=== PATIENT | male | born 1965 | race American Indian/Alaskan Native ===

== ENCOUNTER 2018-02-15 06:01 | Day surgery (SDC) | payer MEDICARE ==
[2018-02-09 09:00] VITALS: BMI 32.7
[2018-02-15] MEDS ORDERED: Gentamicin 80 mg/2mL Inj. ONE (07:30)
[2018-02-15] MEDS ORDERED: Lidocaine 2% Inj (20ml) ONE (07:30)
[2018-02-15] MEDS ORDERED: Midazolam 2 MG/2 ML VIAL ONE ×2 (07:33→08:22)
[2018-02-15] MEDS ORDERED: Propofol 10 mg/ml Inj (20 ML) ONE (07:33)
[2018-02-15] MEDS ORDERED: Bacitracin Ointment 30 GM TUBE ONE (08:30)
[2018-02-15] MEDS ORDERED: Morphine 2 mg/ml ISec IVP PRN (08:58)
[2018-02-15] MEDS ORDERED: Lactated Ringer's 1,000 ML IV SCH (09:00)
--- NOTE | 2018-02-15 09:13 | PCM.SURG1 ---
Surgeon's Initial Post Op Note - Surgeon's Notes Surgeon: Dr. Claudette East Dyno Technician: Dr. Marita Aguirre PGY-1 Type of Anesthesia: IV Sedation, Local Anesthesia Administered By: Dr. Anthony Pre-Operative Diagnosis: right foot chronic non-healing ulceration Operative Findings: see operative report. I: 15cc 2% Lidocaine plain. M: Misonix debridement probe (setting 7), Alloderm tissue matrix 6x12cm, Edmond vac dressing [id number] Post-Operative Diagnosis: right foot chronic non-healing ulceration Operation Performed: right foot wound debridement with Misonix, application of Alloderm graft, application of wound vac dressing Specimen/Specimens Removed: right foot heel soft tissue, heel bone Estimated Blood Loss: EBL {In ML}: 10 Blood Products Given: N/A Drains Used: Wound Vac Post-Op Condition: Good Date of Surgery/Procedure: 02/15/18 Time of Surgery/Procedure: 08:00
[2018-02-15 10:32] VITALS: TEMP 97.8; O2SAT 97
[2018-02-15 11:37] VITALS: BP 182/100; PULSE 74; RESP 20
--- NOTE | 2018-02-15 19:07 | OP ---
PROCEDURE DATE: 02/15/2018 PREOPERATIVE DIAGNOSIS: Right foot nonhealing chronic ulcer. POSTOPERATIVE DIAGNOSIS: Right foot nonhealing chronic ulcer. PROCEDURE: Right foot wound debridement with Misonix, application of AlloDerm graft, application of wound vacuum-assisted closure dressing. SURGEON: Claudette East DPM [facility] LEVERMAN: Marita Aguirre, PGY-1 TYPE OF ANESTHESIA: IV sedation plus local. ANESTHESIOLOGIST: Zeyad Anthony M.D. INDICATION: The patient is a 53-year-old male with the above diagnoses. The patient has exhausted all conservative treatment at this time and now requires surgical intervention. The patient signed the consent after careful explanation of risks, benefits, complications, and alternatives for surgical procedure. No guarantees were given nor implied. N.p.o. status was confirmed prior to taking the patient to the OR. PREPARATION: The patient was brought into the operating room and placed on the operating room table in a supine position. Time-out was performed for identification of the correct patient and procedure. After induction of IV sedation, 15 mL of 2% lidocaine plain was administered in an ankle block fashion to the right lower extremity. The right lower extremity was then prepped and draped in normal sterile manner and the procedure began. No tourniquet was used during the procedure. DESCRIPTION OF PROCEDURE: Attention was then directed to the plantar aspect of the right foot at the heel, where a non-healing wound measuring approximately 15 cm x 12 cm x 0.6 cm was present. Additional open ulcerations were noted to the plantar mid foot, the first being at the plantar lateral mid foot measuring approximately 4 cm x 3.5 cm x 0.4 cm. An additional ulceration was located at the plantar medial mid foot measuring approximately 3 cm x 3 cm x 0.3 cm. There was also an open non- healing transmetatarsal amputation site noted. A sterile #15 blade and forceps were utilized to debride all superficial necrotic and fibrotic tissue from the wound bed and wound borders of all right foot ulcers. At this time, the Misonix debridement probe was primed and set to setting 7 and utilized to excisionally debride all fibrotic and necrotic tissue from the right foot wounds at the heel and the two wounds at the plantar lateral and plantar medial mid foot respectively. At this time, a wound culture was taken from the right heel wound. Next, a bone Trephine was utilized to take a bone biopsy from the plantar posterior heel where exposed calcaneal bone was noted. This bone specimen was sent for pathology and a bone culture was taken. All wound sites were then copiously flushed with gentamicin infused saline solution. Next, an AlloDerm tissue Matrix 6 cm x 12 cm graft was prepped with saline and fenestrated. It was then applied to the posterior plantar right heel wound and reapproximated to the skin edges with skin fannie. At this time a MATA 15 cm x 15 cm wound VAC dressing was applied to the right heel wound. The MATA vac was secured with tegaderm and turned on to begin vac therapy. All other wounds received bacitracin ointment. The right foot was then dressed with Allevyn pads, abdominal pads, a Kerlix dressing, and light OLY bandage. POSTOPERATIVE CONDITION: The patient tolerated the anesthesia and procedure well and was escorted to the recovery room with vital signs stable and neurovascular status intact to the right lower extremity. The patient will follow up with Dr. [facility] in two days, on 02/17/2018 for a dressing change and reevaluation of surgical wound as well as a VAC change. Marita Aguirre DPM Claudette East DPM [facility]
== END 2018-02-15 12:00 | disposition home or self-care (01) ==
LOC: SDS 06:01
PROVIDERS: ATTEND Podiatrist
DX: E11.621 Type 2 diabetes mellitus with foot ulcer (principal); L97.519 Non-pressure chronic ulcer of other part of right foot with unspecified severity; Z79.4 Long term (current) use of insulin
CPT/HCPCS: 15004; 15275; 20240; 82948; 87070 ×2; 88304; 88307; 88311; J0360; J1580; J2250; J2270; J2405; J2704; J3010; J7120

== ENCOUNTER 2018-02-26 08:24 | Day surgery (SDC) | payer MEDICARE ==
[2018-02-26 08:55] VITALS: BMI 32.1
[2018-02-26 09:09] LABS: BASO # 0.01 K/mm3 (0.0-2.0); BASO % 0.1 % (0.0-3.0); EOS # 0.2 (0.0-0.7); EOS % 1.6 % (1.5-5.0); GRAN # 8.04 (1.4-6.5); GRAN % 69.4 % (50.0-68.0); HEMOGLOBIN 7.9 g/dL (14.0-18.0); LYMPH # 2.6 (1.2-3.4); LYMPH % 22.3 % (22.0-35.0); MEAN CELL VOLUME 69.5 fl (80.0-105.0); MEAN CORPUSCULAR HEMOGLOBIN 21.7 pg (25.0-35.0); MEAN CORPUSCULAR HGB CONC 31.2 g/dl (31.0-37.0); MEAN PLATELET VOLUME 9.2 fl (7.0-11.0); MONO # 0.8 (0.1-0.6); MONO % 6.6 % (1.0-6.0); RBC 3.64 10^6/uL (3.5-6.1); RED CELL DISTRIBUTION WIDTH 19.2 % (11.5-14.5); WHITE BLOOD COUNT 11.6 10^3/ul (4.5-11.0)
[2018-02-26 09:13] VITALS: O2SAT 95
[2018-02-26 09:16] LABS: BLOOD UREA NITROGEN 24 mg/dL (7-21); CALCIUM 9.7 mg/dL (8.4-10.5); GFR AFRICAN-AMERICAN > 60; GFR NON-AFRICAN AMERICAN 58
[2018-02-26 09:24] LABS: INR 1.28 (0.93-1.08); PARTIAL THROMBOPLASTIN TIME 33.2 Seconds (25.1-36.5); PROTHROMBIN TIME 14.8 SECONDS (9.4-12.5)
[2018-02-26] MEDS ORDERED: Lidocaine 2% Inj (20ml) ONE (10:15)
[2018-02-26 11:23] VITALS: PULSE 74; RESP 20; TEMP 98.5
[2018-02-26 11:46] VITALS: BP 160/78
--- NOTE | 2018-02-26 13:14 | VASCULAR ---
PROCEDURE: Ultrasound and fluoroscopically placed left upper extremity PICC line. HISTORY: Right foot osteomyelitis. Diabetes. Long-term IV antibiotics. Needs PICC line PHYSICIAN(S): Anderson Rush MD. TECHNIQUE: The relative risks and indications of the procedure were explained to the patient and consent obtained. The patient was placed supine on the arteriogram table and the left arm prepped and draped in the usual sterile fashion. A tourniquet was applied to the left axilla. 1% Xylocaine was used to anesthetize the skin and soft tissues at the puncture site above the elbow. The left basilic vein was punctured under direct ultrasound guidance with a micropuncture set. A 0.018 guidewire was advanced centrally and used to measure the length to the SVC/RA junction. A 5 Macedonian single-lumen PICC line 53 cm long was advanced to the SVC/RA junction. The catheter was flushed and secured. The patient tolerated the procedure well. IMPRESSION: 1. Ultrasound and fluoroscopically placed left upper extremity PICC line. A 5 Macedonian single-lumen PICC line 53 cm long was advanced to the SVC/RA junction.
== END 2018-02-26 11:43 | disposition home or self-care (01) ==
LOC: OPSURG 08:24
PROVIDERS: ATTEND Radiology Vascular & Interventional Radiology
DX: E11.69 Type 2 diabetes mellitus with other specified complication (principal); M86.8X7 Other osteomyelitis, ankle and foot; Z79.4 Long term (current) use of insulin
CPT/HCPCS: 36415; 36569; 76937; 77001; 80048; 85025; 85610; 85730; C1751; J1644

== ENCOUNTER 2018-03-08 10:38 | Observation (INO) | payer MEDICARE ==
[2018-03-08 10:39] VITALS: BMI 39.2
--- NOTE | 2018-03-08 11:22 | ED PDOC ---
Arrival/HPI - General Chief Complaint: GI Problem Time Seen by Provider: 03/08/18 11:03 Historian: Patient - History of Present Illness Narrative History of Present Illness (Text): 03/08/18 11:17 A 53 year old male, with a past medical history of diabetes and osteomyelitis of the right foot, sent into the emergency department by Dr. East for loose watery diarrhea for the past 4-[address] East reports patient is positive for c.diff. She requests to hold antibiotics until patient is examined by ID Dr. Moore. Patient reports he was recently taken off antibiotics 3 days ago. Patient denies any fever, chills, nausea, vomiting, abdominal pain, chest pain, shortness of breath or any other complaints. PMD: Dr. Rosado Bronc Breaker: Dr. East Time/Duration: Other (4-5 days) Symptom Course: Unchanged Context: Home Past Medical History - Provider Review Nursing Documentation Reviewed: Yes - Infectious Disease Hx of Infectious Diseases: None - Cardiac Hx Cardiac Disorders: Yes Hx Hypertension: Yes - Pulmonary Hx Respiratory Disorders: No - Neurological Hx Neurological Disorder: Yes Other/Comment: NEUROPATHY - HEENT Hx HEENT Disorder: No - Renal Hx Renal Disorder: No - Endocrine/Metabolic Hx Endocrine Disorders: Yes Hx Diabetes Mellitus Type 1: Yes Hx Diabetes Mellitus Type 2: Yes - Hematological/Oncological Hx Blood Disorders: No - Integumentary Hx Dermatological Disorder: Yes Hx Cellulitis: Yes - Musculoskeletal/Rheumatological Hx Musculoskeletal Disorders: Yes - Gastrointestinal Hx Gastrointestinal Disorders: Yes Hx Diarrhea: Yes - Genitourinary/Gynecological Hx Genitourinary Disorders: No - Psychiatric Hx Psychophysiologic Disorder: No Hx Emotional Abuse: No Hx Physical Abuse: No Hx Substance Use: No - Surgical History Hx Amputation: Yes - Anesthesia Hx Anesthesia: Yes Hx Anesthesia Reactions: No Hx Malignant Hyperthermia: No - Suicidal Assessment Feels Threatened In Home Enviroment: No Family/Social History - Physician Review Nursing Documentation Reviewed: Yes Family/Social History: No Known Family HX Smoking Status: Former Smoker Hx Alcohol Use: No Hx Substance Use: No Allergies/Home Meds Allergies/Adverse Reactions: Allergies No Known Allergies Allergy (Verified 03/08/18 10:41) Home Medications: Home Meds Medication Instructions Recorded Confirmed Atorvastatin [Lipitor] 20 mg PO DAILY 02/09/18 03/08/18 Gabapentin [Neurontin] 300 mg PO TID 02/09/18 03/08/18 Hydrocodone/Acetaminophen 1 tab PO Q6H PRN 02/09/18 03/08/18 [Hydrocodone-Acetamin 10-325 mg] Metoprolol Tartrate [Lopressor] 25 mg PO BID 02/09/18 03/08/18 Insulin Aspart Prot/Insuln Asp 60 unit SQ ACTID 02/26/18 03/08/18 [Novolog Mix 70-30 Vial] Insulin Glargine,Hum.rec.anlog 50 units SC ACBD 02/26/18 03/08/18 [Basaglar Kwikpen U-100] Review of Systems - Physician Review All systems were reviewed & negative as marked: Yes - Review of Systems Constitutional: absent: Fevers, Night Sweats Respiratory: absent: SOB Cardiovascular: absent: Chest Pain Gastrointestinal: Diarrhea. absent: Abdominal Pain, Nausea, Vomiting Physical Exam Vital Signs Reviewed: Yes Vital Signs Temp Pulse Resp BP Pulse Ox 03/08/18 11:36 75 18 158/86 H 95 03/08/18 10:43 97.7 F 76 16 160/91 H 94 L Temperature: Afebrile Blood Pressure: Hypertensive Pulse: Regular Respiratory Rate: Normal Appearance: Positive for: Well-Appearing, Non-Toxic, Comfortable Pain Distress: None Mental Status: Positive for: Alert and Oriented X 3 - Systems Exam Head: Present: Atraumatic, Normocephalic Pupils: Present: PERRL Extroacular Muscles: Present: EOMI Conjunctiva: Present: Normal Mouth: Present: Moist Mucous Membranes Neck: Present: Normal Range of Motion Respiratory/Chest: Present: Clear to Auscultation, Good Air Exchange. No: Respiratory Distress, Accessory Muscle Use Cardiovascular: Present: Regular Rate and Rhythm, Normal S1, S2. No: Murmurs Abdomen: No: Tenderness, Distention, Peritoneal Signs Back: Present: Normal Inspection Upper Extremity: Present: Normal Inspection. No: Cyanosis, Edema Lower Extremity: Present: NORMAL PULSES, Other (Dressing to right foot noted. Examination differed due to recent dressing changed today by dual rate supervisor.). No: Edema, CALF TENDERNESS Neurological: Present: GCS=15, CN II-XII Intact, Speech Normal Skin: Present: Warm, Dry, Normal Color. No: Rashes Psychiatric: Present: Alert, Oriented x 3, Normal Insight, Normal Concentration Medical Decision Making ED Course and Treatment: 03/08/18 11:16 Impression: A 53 year old male with loose watery diarrhea for 4-5 days. Patient is positive for c.diff. Plan: -- Labs -- Blood and stool culture -- Urinalysis -- Reassess and disposition Progress Notes: 03/08/18 11:[address] East, who states c.diff confirmed on todays blood work results. Reports patient has been on and off antibiotics for the past few months due to history of osteomyelitis. She is concerned for worsening dehydration and hyperglycemia, and patient needs evaluation by ID for antibiotic mgmt due to osteomyelitis and new c.diff. Accepted by hospitalist. - Lab Interpretations Lab Results: 03/08/18 11:50 03/08/18 11:50 Lab Results 03/08/18 11:50: Sodium 143, Potassium 4.0, Chloride 106, Carbon Dioxide 26, Anion Gap 15, BUN 21, Creatinine 1.3, Est GFR ( Amer) > 60, Est GFR (Non- Af Amer) 58, Random Glucose 193 H, Calcium 9.7, Total Bilirubin 0.2, AST 49, ALT 50, Alkaline Phosphatase 77, Total Protein 7.6, Albumin 3.4, Globulin 4.2, Albumin/Globulin Ratio 0.8 L, Lipase 143 03/08/18 11:50: WBC 11.1 H, RBC 3.76, Hgb 8.2 L, Hct 26.7 L, MCV 71.0 L, MCH 21.8 L, MCHC 30.7 L, RDW 19.5 H, Plt Count 410, MPV 9.0, Gran % 68.4 H, Lymph % (Auto) 25.7, Cecil % (Auto) 4.3, Eos % (Auto) 1.4 L, Baso % (Auto) 0.2, Gran # 7.57 H, Lymph # (Auto) 2.8, Cecil # (Auto) 0.5, Eos # (Auto) 0.2, Baso # (Auto) 0.02 I have reviewed the lab results: Yes - Medication Orders Current Medication Orders: Sodium Chloride (Sodium Chloride 0.9%) 1,000 mls @ 80 mls/hr IV .[id number] JORGE ALBERTO - Scribe Statement The provider has reviewed the documentation as recorded by the Scribe Twila Yu Provider Kalyn Attestation: All medical record entries made by the Danetteibamanda were at my direction and personally dictated by me. I have reviewed the chart and agree that the record accurately reflects my personal performance of the history, physical exam, medical decision making, and the department course for this patient. I have also personally directed, reviewed, and agree with the discharge instructions and disposition. Disposition/Present on Arrival - Present on Arrival Any Indicators Present on Arrival: No History of DVT/PE: No History of Uncontrolled Diabetes: No Urinary Catheter: No History of Decub. Ulcer: No History Surgical Site Infection Following: None - Disposition Have Diagnosis and Disposition been Completed?: Yes Diagnosis: C. difficile diarrhea, Osteomyelitis, Diabetic foot ulcer Disposition: HOSPITALIZED Disposition Time: 12:24 Patient Plan: Observation Condition: FAIR Referrals: Lillian Rosado MD [Primary Care Provider] - Follow up with primary Forms: [employer] ([place])
[2018-03-08 11:37] VITALS: RESP 18
[2018-03-08 12:05] LABS: BASO # 0.02 K/mm3 (0.0-2.0); BASO % 0.2 % (0.0-3.0); EOS # 0.2 (0.0-0.7); EOS % 1.4 % (1.5-5.0); GRAN # 7.57 (1.4-6.5); GRAN % 68.4 % (50.0-68.0); HEMOGLOBIN 8.2 g/dL (14.0-18.0); LYMPH # 2.8 (1.2-3.4); LYMPH % 25.7 % (22.0-35.0); MEAN CORPUSCULAR HEMOGLOBIN 21.8 pg (25.0-35.0); MEAN CORPUSCULAR HGB CONC 30.7 g/dl (31.0-37.0); MONO # 0.5 (0.1-0.6); MONO % 4.3 % (1.0-6.0); RBC 3.76 10^6/uL (3.5-6.1); RED CELL DISTRIBUTION WIDTH 19.5 % (11.5-14.5); WHITE BLOOD COUNT 11.1 10^3/ul (4.5-11.0)
[2018-03-08 12:15] LABS: ALB/GLOB RATIO 0.8 (1.1-1.8); ALBUMIN 3.4 g/dL (3.0-4.8); ALT/SGPT 50 U/L (7-56); AST/SGOT 49 U/L (17-59); BLOOD UREA NITROGEN 21 mg/dL (7-21); CALCIUM 9.7 mg/dL (8.4-10.5); GFR AFRICAN-AMERICAN > 60; GFR NON-AFRICAN AMERICAN 58; LIPASE 143 U/L (23-300)
--- NOTE | 2018-03-08 12:38 | CP.PCM.HP ---
Addendum entered and electronically signed by Ludivina Baca DO 03/08/18 16:58: Patient was on IV Avycaz outpatient for antibiotic therapy prior to admission. Anemia workup: Will f/u Iron, TIBC, Retic count, Vit B12/Folate, Ferritin, Will hold stool occult testing at this time until infection resolves Original Note: <Ludivina Baca - Last Filed: 03/08/18 16:52> History of Present Illness - History of Present Illness History of Present Illness: HPI: Patient is a 53 year old male with past medical history of Diabetes Mellitus, HTN, Peripheral vascular disease and Osteomyelitis of Right Foot on IV antibiotics. Patient states that he started having loose bowel movements since last week. Consistency varies between soft and watery stools. He is on IV antibiotics for Osteomyelitis, he is unsure which antibiotics he is taking. He was tested for C diff which came back positive. Dr East requested that patient come to the hospital to be treated. He was recently taken off antibiotics 3 days ago. He denies any fever, chills, headaches, dizziness, cp, palpitations, N/V, sob, recent travel, sick contacts. States that this has never happened to him before. PMD: Dr Rosado Allergies: NKDA Medications: Metoprolol 25mg PO BID, Levemir 25 units HS, Novolog 60 units TID, Percocet 10/325mg PO q6H prn, ASA/Plavix, Lipitor 20mg PO HS Medical History: Diabetes Mellitus, HTN, Hx of Osteomyelitis of R foot, Perpipheral vascular disease Surgical History: Right foot transmetatarsal amputation, Left 1st and 2nd toe amputation Social History: Denies alcohol, tobacco, drug use Present on Admission - Present on Admission Any Indicators Present on Admission: No Past Patient History - Infectious Disease Hx of Infectious Diseases: None - Past Medical History & Family History Past Medical History?: Yes - Past Social History Smoking Status: Former Smoker - CARDIAC Hx Cardiac Disorders: Yes Hx Hypertension: Yes - PULMONARY Hx Respiratory Disorders: No - NEUROLOGICAL Hx Neurological Disorder: Yes Other/Comment: NEUROPATHY - HEENT Hx HEENT Problems: No - RENAL Hx Chronic Kidney Disease: No - ENDOCRINE/METABOLIC Hx Endocrine Disorders: Yes Hx Diabetes Mellitus Type 1: Yes Hx Diabetes Mellitus Type 2: Yes - HEMATOLOGICAL/ONCOLOGICAL Hx Blood Disorders: No - INTEGUMENTARY Hx Dermatological Problems: Yes Hx Cellulitis: Yes - MUSCULOSKELETAL/RHEUMATOLOGICAL Hx Musculoskeletal Disorders: Yes - GASTROINTESTINAL Hx Gastrointestinal Disorders: Yes Hx Diarrhea: Yes - GENITOURINARY/GYNECOLOGICAL Hx Genitourinary Disorders: No - PSYCHIATRIC Hx Psychophysiologic Disorder: No Hx Emotional Abuse: No Hx Physical Abuse: No Hx Substance Use: No - SURGICAL HISTORY Hx Amputation: Yes - ANESTHESIA Hx Anesthesia: Yes Hx Anesthesia Reactions: No Hx Malignant Hyperthermia: No Meds Allergies/Adverse Reactions: Allergies Allergy/AdvReac Type Severity Reaction Status Date / Time No Known Allergies Allergy Verified 03/08/18 10:41 Physical Exam - Constitutional Appears: Well, No Acute Distress - Head Exam Head Exam: ATRAUMATIC, NORMAL INSPECTION, NORMOCEPHALIC - Eye Exam Eye Exam: EOMI, Normal appearance Pupil Exam: PERRL - ENT Exam ENT Exam: Mucous Membranes Moist - Respiratory Exam Respiratory Exam: Clear to Auscultation Bilateral, NORMAL BREATHING PATTERN. absent: Rales, Rhonchi, Wheezes - Cardiovascular Exam Cardiovascular Exam: REGULAR RHYTHM, +S1, +S2 - GI/Abdominal Exam GI & Abdominal Exam: Distended, Guarding, Normal Bowel Sounds, Soft. absent: Rebound, Rigid, Tenderness - Extremities Exam Additional comments: Left foot: 1st and 2nd toe amputation Right foot: Covered with dressing, transmetatarsal amputation Pedal pulses palpable bilaterally Left upper arm PICC line - Neurological Exam Neurological exam: Alert, Oriented x3 - Psychiatric Exam Psychiatric exam: Normal Affect, Normal Mood - Skin Skin Exam: Normal Color, Warm Results - Vital Signs Recent Vital Signs: Last Vital Signs Temp 97.7 F 03/08/18 10:43 Pulse 75 03/08/18 11:36 Resp 18 03/08/18 11:36 BP 158/86 H 03/08/18 11:36 Pulse Ox 95 03/08/18 11:36 - Labs Result Diagrams: 03/08/18 11:50 03/08/18 11:50 Assessment & Plan - Assessment and Plan (Free Text) Assessment: 1. Diarrhea likely 2/2 C Diff Colitis -Stable, afebrile -Leukocytosis 11.1 -F/U repeat c diff, fecal leukocytes, stool cultures, stool ova/parasites -F/U blood cultures, urine cultures -Antiobiotics: Vancomycin 125mg PO QID -ID on consult, help appreciated -Contact precautions 2. Insulin Dependent Diabetes Mellitus with Neuropathy -Low dose Insulin sliding scale -Levemir 25 units HS -Accuchecks ACHS -Continue Gabapentin 300mg PO TID -F/U lipid panel, hga1c 3. History of HTN -Continue Metoprolol 25mg PO BID 4. History of Osteomyelitis of Right Foot -Patient was on IV antibiotics outpatient, on hold at this time -Wound cultures grew pseudomonas aeurginosa -Podiatry on consult, help appreciated 5. Anemia -Likely Multifactorial -Hgb 8.2 on admission -No acute signs of bleeding at this time -F/U anemia workup -Serial CBCs 6. History of Peripheral Vascular Disease -Continue ASA/Plavix GI/DVT ppx: -Pepcid 20mg PO BID -Heparin 5000 units Q12H Plan discussed with Dr Shaw <Zak Shaw - Last Filed: 03/09/18 07:16> Results - Vital Signs Recent Vital Signs: Last Vital Signs Temp 98.9 F 03/08/18 16:43 Pulse 75 03/08/18 16:43 Resp 18 03/08/18 16:43 BP 165/93 H 03/08/18 18:40 Pulse Ox 96 03/08/18 16:01 - Labs Result Diagrams: 03/08/18 11:50 03/08/18 11:50 Labs: Laboratory Results - last 24 hr 03/08/18 03/08/18 03/08/18 12:30 15:54 16:59 POC Glucose (mg/dL) 203 H 174 H Urine Color Yellow Urine Appearance Clear Urine pH 6.0 Ur Specific Allred 1.025 Urine Protein 100 H Urine Glucose (UA) Negative Urine Ketones Negative Urine Blood Moderate H Urine Nitrate Negative Urine Bilirubin Negative Urine Urobilinogen 0.2 Ur Leukocyte Esterase Negative Urine RBC 15 - 20 Urine WBC 1 - 3 Ur Epithelial Cells 0 - 2 Amorphous Sediment Few Urine Bacteria Many Fine Granular Casts 0 - 2 Coarse Granular Casts Trace H Urine Other Fiber 03/08/18 03/09/18 21:05 06:43 POC Glucose (mg/dL) 242 H 176 H Urine Color Urine Appearance Urine pH Ur Specific Allred Urine Protein Urine Glucose (UA) Urine Ketones Urine Blood Urine Nitrate Urine Bilirubin Urine Urobilinogen Ur Leukocyte Esterase Urine RBC Urine WBC Ur Epithelial Cells Amorphous Sediment Urine Bacteria Fine Granular Casts Coarse Granular Casts Urine Other Attending/Attestation - Attestation I have personally seen and examined this patient.: Yes I have fully participated in the care of the patient.: Yes I have reviewed all pertinent clinical information: Yes Notes (Text): 03/08/18 53 year old male with past medical history of hypertension, diabetes, and osteomyelitis of right foot which was being treated by his lead mechanical engineer with iv antibiotics and hyperbaric therapy presents with complaint of diarrhea. Recent outpatient testing was positive for C Diff antigen. He is started on po vanco. ID and podiatry consults are also requested for osteomyelitis of right foot. Anemia workup is ordered for microcytic anemia, likely multifactorial, possibly anemia of chronic disease. Continue with home medications for hypertension and diabetes. Zak Shaw MD Hospitalist.
[2018-03-08 12:39] LABS: URINE APPEARANCE CLEAR (CLEAR); URINE BILIRUBIN NEGATIVE (NEGATIVE); URINE BLOOD MODERATE (NEGATIVE); URINE COLOR YELLOW (YELLOW); URINE GLUCOSE (UA) NEGATIVE (NEGATIVE); URINE LEUKOCYTE ESTERASE NEGATIVE Leu/uL (NEGATIVE); URINE PROTEIN 100 mg/dL (<30 mg/dL); URINE UROBILINOGEN 0.2 E.U./dL (<1 E.U./dL)
[2018-03-08 12:52] LABS: URINE BACTERIA MANY (NEG); URINE EPITHELIAL CELLS 0 - 2 /hpf (0-5); URINE RBC 15 - 20 /hpf (0-2)
[2018-03-08 12:53] LABS: URINE AMORPHOUS SEDIMENT FEW
[2018-03-08 12:54] LABS: URINE COARSE GRANULAR CAST TRACE /hpf (0-2); URINE FINE GRANULAR CAST 0 - 2 /hpf (0-2)
[2018-03-08] MEDS: Sodium Chloride 0.9% 1,000 ML IV SCH (13:55)
[2018-03-08] MEDS ORDERED: metroNIDAZOLE IV 500 mg/100 ml 500 MG/100 ML BAG IVPB SCH (14:00)
[2018-03-08] MEDS ORDERED: GABAPENTIN 300 MG PO SCH (14:00)
[2018-03-08] MEDS: Vancomycin 25 MG/ML PO SCH ×3 (14:23→22:22)
[2018-03-08] MEDS ORDERED: Insulin Detemir 100 units/ml Vial (Levemir) SC SCH ×2 (16:30→22:00)
[2018-03-08] MEDS: Insulin Lispro (humaLOG) LOW Coverage SC SCH (17:40)
[2018-03-08] MEDS: Oxycodone/Acetaminophen 10/325 mg Tab PO PRN ×2 (17:50→23:10)
[2018-03-09] MEDS: Oxycodone/Acetaminophen 10/325 mg Tab PO PRN ×2 (06:10→12:21)
[2018-03-09 07:19] LABS: ALB/GLOB RATIO 0.8 (1.1-1.8); ALBUMIN 3.1 g/dL (3.0-4.8); ALT/SGPT 40 U/L (7-56); AST/SGOT 37 U/L (17-59); BLOOD UREA NITROGEN 18 mg/dL (7-21); CALCIUM 9.4 mg/dL (8.4-10.5); GFR AFRICAN-AMERICAN > 60; GFR NON-AFRICAN AMERICAN > 60; HDL CHOLESTEROL 21 mg/dL (29-60); IRON 33 ug/dL (45-180)
[2018-03-09 07:27] LABS: LDL CHOLESTEROL 46 mg/dL (0-129)
[2018-03-09 07:32] LABS: % IRON SATURATION 14 % (20-55); TOTAL IRON BINDING CAPACITY 236 ug/dL (261-462)
[2018-03-09 07:42] LABS: BASO # 0.02 K/mm3 (0.0-2.0); BASO % 0.2 % (0.0-3.0); EOS # 0.2 (0.0-0.7); EOS % 1.6 % (1.5-5.0); GRAN # 6.15 (1.4-6.5); GRAN % 63.4 % (50.0-68.0); HEMOGLOBIN 7.9 g/dL (14.0-18.0); LYMPH # 2.8 (1.2-3.4); LYMPH % 28.5 % (22.0-35.0); MEAN CELL VOLUME 71.1 fl (80.0-105.0); MEAN CORPUSCULAR HEMOGLOBIN 21.8 pg (25.0-35.0); MEAN CORPUSCULAR HGB CONC 30.6 g/dl (31.0-37.0); MEAN PLATELET VOLUME 9.1 fl (7.0-11.0); MONO # 0.6 (0.1-0.6); MONO % 6.3 % (1.0-6.0); PLATELET COUNT 384 10^3/uL (120.0-450.0); RBC 3.63 10^6/uL (3.5-6.1); RED CELL DISTRIBUTION WIDTH 19.7 % (11.5-14.5); WHITE BLOOD COUNT 9.7 10^3/ul (4.5-11.0)
[2018-03-09] MEDS: Insulin Lispro (humaLOG) LOW Coverage SC SCH ×3 (08:27→15:49)
[2018-03-09] MEDS ORDERED: Magnesium Sulfate 2 GM in Sodium Chloride 0.9% 100 ML IVPB ONE (08:39)
[2018-03-09] MEDS: Vancomycin 25 MG/ML PO SCH ×3 (09:54→17:17)
[2018-03-09] MEDS: Sodium Chloride 0.9% 1,000 ML IV SCH (09:59)
[2018-03-09] MEDS ORDERED: Enoxaparin 40 mg Syringe SC SCH (10:00)
[2018-03-09 11:56] LABS: BASO # 0.02 K/mm3 (0.0-2.0); BASO % 0.2 % (0.0-3.0); EOS # 0.2 (0.0-0.7); EOS % 1.6 % (1.5-5.0); GRAN # 7.24 (1.4-6.5); GRAN % 66.2 % (50.0-68.0); LYMPH # 3.1 (1.2-3.4); LYMPH % 27.9 % (22.0-35.0); MEAN CELL VOLUME 71.2 fl (80.0-105.0); MEAN CORPUSCULAR HEMOGLOBIN 21.6 pg (25.0-35.0); MEAN CORPUSCULAR HGB CONC 30.4 g/dl (31.0-37.0); MEAN PLATELET VOLUME 8.9 fl (7.0-11.0); MONO # 0.5 (0.1-0.6); MONO % 4.1 % (1.0-6.0); RBC 4.16 10^6/uL (3.5-6.1); RED CELL DISTRIBUTION WIDTH 19.7 % (11.5-14.5); WHITE BLOOD COUNT 10.9 10^3/ul (4.5-11.0)
--- NOTE | 2018-03-09 12:52 | CP.PCM.CON ---
History of Present Illness - History of Present Illness History of Present Illness: 53 year old male with PMH of DM, HTN, morbid obesity, peripheral vascular disease, history of right foot TMA, history of left foot 1st and 2nd toe amputation was sent in from the wound care center because of loose bowel movement since 4-5 days ago. He has been on antibiotics for at least 2 and 1/[address] East's care, treating multidrug-resistant Pseudomonas on his right foot. He denies fever or chills, no nausea or vomiting, no headache or dizziness, no chest pain, no SOB, no sore throat, no abdominal pain, no diarrhea, no dysuria. Infectious Diseases consult is requested to further evaluate and manage. Review of Systems - Review of Systems All systems: reviewed and no additional remarkable complaints except (as per HPI ) Past Patient History - Infectious Disease Hx of Infectious Diseases: None - Past Medical History & Family History Past Medical History?: Yes - Past Social History Smoking Status: Former Smoker - CARDIAC Hx Cardiac Disorders: Yes Hx Hypertension: Yes - PULMONARY Hx Respiratory Disorders: No - NEUROLOGICAL Hx Neurological Disorder: Yes Other/Comment: NEUROPATHY - HEENT Hx HEENT Problems: No - RENAL Hx Chronic Kidney Disease: No - ENDOCRINE/METABOLIC Hx Endocrine Disorders: Yes Hx Diabetes Mellitus Type 1: Yes Hx Diabetes Mellitus Type 2: Yes - HEMATOLOGICAL/ONCOLOGICAL Hx Blood Disorders: No - INTEGUMENTARY Hx Dermatological Problems: Yes Hx Cellulitis: Yes - MUSCULOSKELETAL/RHEUMATOLOGICAL Hx Musculoskeletal Disorders: Yes - GASTROINTESTINAL Hx Gastrointestinal Disorders: Yes Hx Diarrhea: Yes - GENITOURINARY/GYNECOLOGICAL Hx Genitourinary Disorders: No - PSYCHIATRIC Hx Psychophysiologic Disorder: No Hx Emotional Abuse: No Hx Physical Abuse: No Hx Substance Use: No - SURGICAL HISTORY Hx Amputation: Yes - ANESTHESIA Hx Anesthesia: Yes Hx Anesthesia Reactions: No Hx Malignant Hyperthermia: No Meds Allergies/Adverse Reactions: Allergies Allergy/AdvReac Type Severity Reaction Status Date / Time No Known Allergies Allergy Verified 03/08/18 10:41 - Medications Medications: Current Medications Aspirin (Ecotrin) 81 mg PO DAILY [facility] Atorvastatin Calcium (Lipitor) 20 mg PO DAILY [facility] Famotidine (Pepcid) 20 mg PO 1000,2200 [facility] Last Admin: 03/08/18 22:21 Dose: 20 mg Gabapentin (Neurontin) 300 mg PO TID [facility] Last Admin: 03/08/18 17:40 Dose: 300 mg Sodium Chloride (Sodium Chloride 0.9%) 1,000 mls @ 80 mls/hr IV .[id number] [facility] Last Admin: 03/08/18 13:55 Dose: 80 mls/hr Insulin Detemir (Levemir) 25 unit SC HS [facility] Last Admin: 03/08/18 22:21 Dose: 25 unit Insulin Human Lispro (Humalog Low) 0 units SC ACHS [facility] PRN Reason: Protocol Last Admin: 03/08/18 17:40 Dose: 1 units Metoprolol Tartrate (Lopressor) 25 mg PO BID [facility] Last Admin: 03/08/18 17:40 Dose: 25 mg Oxycodone/Acetaminophen (Percocet 10/325 Mg Tab) 1 tab PO Q6H PRN PRN Reason: Pain, moderate (4-7) Last Admin: 03/08/18 17:50 Dose: 1 tab Vancomycin HCl (Vancocin 25 Mg/Ml (Oral Use)) 125 mg PO QID [facility] PRN Reason: Protocol Last Admin: 03/08/18 22:22 Dose: 125 mg Physical Exam - Constitutional Appears: Chronically Ill - Head Exam Head Exam: NORMAL INSPECTION - ENT Exam ENT Exam: Mucous Membranes Moist - Neck Exam Neck exam: Negative for: Lymphadenopathy, Meningismus - Respiratory Exam Respiratory Exam: Decreased Breath Sounds - Cardiovascular Exam Cardiovascular Exam: +S1, +S2 - GI/Abdominal Exam GI & Abdominal Exam: Soft. absent: Tenderness - Extremities Exam Additional comments: right foot with dressings in place Results - Vital Signs Recent Vital Signs: Last Vital Signs Temp 98.9 F 03/08/18 16:43 Pulse 75 03/08/18 16:43 Resp 18 03/08/18 16:43 BP 165/93 H 03/08/18 18:40 Pulse Ox 96 03/08/18 16:01 - Labs Result Diagrams: 03/09/18 11:35 03/09/18 06:20 Labs: Laboratory Results - last 24 hr 03/08/18 03/08/18 03/08/18 12:30 15:54 16:59 POC Glucose (mg/dL) 203 H 174 H Urine Color Yellow Urine Appearance Clear Urine pH 6.0 Ur Specific [place] 1.025 Urine Protein 100 H Urine Glucose (UA) Negative Urine Ketones Negative Urine Blood Moderate H Urine Nitrate Negative Urine Bilirubin Negative Urine Urobilinogen 0.2 Ur Leukocyte Esterase Negative Urine RBC 15 - 20 Urine WBC 1 - 3 Ur Epithelial Cells 0 - 2 Amorphous Sediment Few Urine Bacteria Many Fine Granular Casts 0 - 2 Coarse Granular Casts Trace H Urine Other Fiber 03/08/18 21:05 POC Glucose (mg/dL) 242 H Urine Color Urine Appearance Urine pH Ur Specific [place] Urine Protein Urine Glucose (UA) Urine Ketones Urine Blood Urine Nitrate Urine Bilirubin Urine Urobilinogen Ur Leukocyte Esterase Urine RBC Urine WBC Ur Epithelial Cells Amorphous Sediment Urine Bacteria Fine Granular Casts Coarse Granular Casts Urine Other Assessment & Plan - Assessment and Plan (Free Text) Plan: Assessment Diarrhea, R/O C. diff. associated right foot osteomyelitis with multidrug-resistant Pseudomonas DM HTN morbid obesity peripheral vascular disease history of right foot TMA history of left foot 1st and 2nd toe amputation Plan Continue Avycaz - will need 4-6 weeks of antibiotics with weekly ESR, CRP, CBC, CMP (on 2 1/2 weeks already of antibiotics) follow up stool for C. diff. - empirically started PO Vancomycin will monitor clinically
--- NOTE | 2018-03-09 15:10 | CP.PCM.DIS ---
<Ludivina Baca - Last Filed: 03/09/18 15:24> Provider - Provider Date of Admission: 03/08/18 12:17 Attending physician: Zak Shaw MD Primary care physician: Lillian Rosado MD Time Spent in preparation of Discharge (in minutes): 31 Hospital Course - Lab Results Lab Results: Micro Results 03/08/18 12:20 Blood Blood Culture - Preliminary NO GROWTH AFTER 24 HOURS 03/08/18 13:18 Urine Urine Culture - Final No Growth (<1,000 CFU/ML) Most Recent Lab Values WBC 10.9 10^3/ul (4.5-11.0) 03/09/18 11:35 RBC 4.16 10^6/uL (3.5-6.1) 03/09/18 11:35 Hgb 9.0 g/dL (14.0-18.0) L 03/09/18 11:35 Hct 29.6 % (42.0-52.0) L 03/09/18 11:35 MCV 71.2 fl (80.0-105.0) L 03/09/18 11:35 MCH 21.6 pg (25.0-35.0) L 03/09/18 11:35 MCHC 30.4 g/dl (31.0-37.0) L 03/09/18 11:35 RDW 19.7 % (11.5-14.5) H 03/09/18 11:35 Plt Count 435 10^3/uL (120.0-450.0) 03/09/18 11:35 MPV 8.9 fl (7.0-11.0) 03/09/18 11:35 Gran % 66.2 % (50.0-68.0) 03/09/18 11:35 Lymph % (Auto) 27.9 % (22.0-35.0) 03/09/18 11:35 [place] % (Auto) 4.1 % (1.0-6.0) 03/09/18 11:35 Eos % (Auto) 1.6 % (1.5-5.0) 03/09/18 11:35 Baso % (Auto) 0.2 % (0.0-3.0) 03/09/18 11:35 Gran # 7.24 (1.4-6.5) H 03/09/18 11:35 Lymph # (Auto) 3.1 (1.2-3.4) 03/09/18 11:35 [place] # (Auto) 0.5 (0.1-0.6) 03/09/18 11:35 Eos # (Auto) 0.2 (0.0-0.7) 03/09/18 11:35 Baso # (Auto) 0.02 K/mm3 (0.0-2.0) 03/09/18 11:35 ESR 106 mm/hr (0.00-15.0) H 03/09/18 06:20 Retic Count 2.92 % (0.5-1.5) H 03/09/18 06:20 Sodium 141 mmol/L (132-148) 03/09/18 06:20 Potassium 4.0 mmol/L (3.6-5.0) 03/09/18 06:20 Chloride 106 mmol/L (98-107) 03/09/18 06:20 Carbon Dioxide 25 mmol/L (21-33) 03/09/18 06:20 Anion Gap 14 (10-20) 03/09/18 06:20 BUN 18 mg/dL (7-21) 03/09/18 06:20 Creatinine 1.2 mg/dl (0.8-1.5) 03/09/18 06:20 Est GFR ( Amer) > 60 03/09/18 06:20 Est GFR (Non-Af Amer) > 60 03/09/18 06:20 POC Glucose (mg/dL) 176 mg/dL (65-110) H 03/09/18 06:43 Random Glucose 168 mg/dL (70-110) H 03/09/18 06:20 Hemoglobin A1c 10.3 % (4.2-6.5) H 03/09/18 06:20 Calcium 9.4 mg/dL (8.4-10.5) 03/09/18 06:20 Phosphorus 5.0 mg/dL (2.5-4.5) H 03/09/18 06:20 Magnesium 1.6 mg/dL (1.7-2.2) L 03/09/18 06:20 Iron 33 ug/dL (45-180) L 03/09/18 06:20 TIBC 236 ug/dL (261-462) L 03/09/18 06:20 % Saturation 14 % (20-55) L 03/09/18 06:20 Transferrin 160.29 mg/dL (206-381) L 03/09/18 06:20 Ferritin 74.0 ng/mL 03/09/18 06:20 Total Bilirubin 0.1 mg/dL (0.2-1.3) L 03/09/18 06:20 AST 37 U/L (17-59) 03/09/18 06:20 ALT 40 U/L (7-56) 03/09/18 06:20 Alkaline Phosphatase 62 U/L (38-126) 03/09/18 06:20 C-Reactive Protein 9.40 mg/L (0.0-9.9) 03/09/18 06:20 Total Protein 6.9 g/dL (5.8-8.3) 03/09/18 06:20 Albumin 3.1 g/dL (3.0-4.8) 03/09/18 06:20 Globulin 3.8 gm/dL 03/09/18 06:20 Albumin/Globulin Ratio 0.8 (1.1-1.8) L 03/09/18 06:20 Triglycerides 154 mg/dL (35-160) 03/09/18 06:20 Cholesterol 107 mg/dL (130-200) L 03/09/18 06:20 LDL Cholesterol Direct 46 mg/dL (0-129) 03/09/18 06:20 HDL Cholesterol 21 mg/dL (29-60) L 03/09/18 06:20 Lipase 143 U/L (23-300) 03/08/18 11:50 Vitamin B12 441 pg/mL (239-931) 03/09/18 06:20 Procalcitonin 0.06 NG/ML (0.19-0.49) L 03/09/18 06:20 Urine Color Yellow (YELLOW) 03/08/18 12:30 Urine Appearance Clear (CLEAR) 03/08/18 12:30 Urine pH 6.0 (4.7-8.0) 03/08/18 12:30 Ur Specific [place] 1.025 (1.005-1.035) 03/08/18 12:30 Urine Protein 100 mg/dL (<30 mg/dL) H 03/08/18 12:30 Urine Glucose (UA) Negative mg/dL (NEGATIVE) 03/08/18 12:30 Urine Ketones Negative mg/dL (NEGATIVE) 03/08/18 12:30 Urine Blood Moderate (NEGATIVE) H 03/08/18 12:30 Urine Nitrate Negative (NEGATIVE) 03/08/18 12:30 Urine Bilirubin Negative (NEGATIVE) 03/08/18 12:30 Urine Urobilinogen 0.2 E.U./dL (<1 E.U./dL) 03/08/18 12:30 Ur Leukocyte Esterase Negative [place]/uL (NEGATIVE) 03/08/18 12:30 Urine RBC 15 - 20 /hpf (0-2) 03/08/18 12:30 Urine WBC 1 - 3 /hpf (0-6) 03/08/18 12:30 Ur Epithelial Cells 0 - 2 /hpf (0-5) 03/08/18 12:30 Amorphous Sediment Few 03/08/18 12:30 Urine Bacteria Many (NEG) 03/08/18 12:30 Fine Granular Casts 0 - 2 /hpf (0-2) 03/08/18 12:30 Coarse Granular Casts Trace /hpf (0-2) H 03/08/18 12:30 Urine Other Fiber 03/08/18 12:30 Blood Type AB POSITIVE 03/09/18 10:15 Antibody Screen Negative 03/09/18 10:15 Crossmatch See Detail 03/09/18 10:15 BBK History Checked Patient has bt 03/09/18 10:15 - Hospital Course Hospital Course: History of Present Illness: Patient is a 53 year old male with past medical history of Diabetes Mellitus, HTN, Peripheral vascular disease, CAD with stents and Osteomyelitis of Right Foot on IV antibiotics. Patient states that he started having loose bowel movements since last week. Consistency varies between soft and watery stools. He is on IV Avycaz for Osteomyelitis outpatient. He was tested for C diff outpatient which came back positive. Dr East requested that patient come to the hospital to be treated. He was recently taken off antibiotics 3 days ago. He denies any fever, chills, headaches, dizziness, cp, palpitations, N /V, sob, recent travel, sick contacts. States that this has never happened to him before. Hospital Course: Patient was admitted for C diff colitis. Patient was started on Vancomycin 125mg PO QID. Infectious Disease was consulted. Podiatry also consulted. During hospital stay, patient was doing well. Diarrhea had improved. Repeat C Diff still pending. Blood cultures, urine cultures negative. Patient found to be anemic, workup suggesting iron deficiency anemia. Will start on PO iron at this time. Patient advised to follow up with GI outpatient for EGD/Colonoscopy. Patient medically stable, will discharge home. Patient was started on IV antibiotics for Osteomyelitis. Decision on whether to continue IV Avycaz to be decided by Infectious Disease and Dr East. Discharge Exam - Additional Findings Additional findings: - Constitutional Appears: Well, No Acute Distress - Head Exam Head Exam: ATRAUMATIC, NORMAL INSPECTION, NORMOCEPHALIC - Eye Exam Eye Exam: EOMI, Normal appearance Pupil Exam: PERRL - ENT Exam ENT Exam: Mucous Membranes Moist - Respiratory Exam Respiratory Exam: Clear to Auscultation Bilateral, NORMAL BREATHING PATTERN. absent: Rales, Rhonchi, Wheezes - Cardiovascular Exam Cardiovascular Exam: REGULAR RHYTHM, +S1, +S2 - GI/Abdominal Exam GI & Abdominal Exam: Distended, Guarding, Normal Bowel Sounds, Soft. absent: Rebound, Rigid, Tenderness - Extremities Exam Additional comments: Left foot: 1st and 2nd toe amputation Right foot: Covered with dressing, transmetatarsal amputation Pedal pulses palpable bilaterally Left upper arm PICC line - Neurological Exam Neurological exam: Alert, Oriented x3 - Psychiatric Exam Psychiatric exam: Normal Affect, Normal Mood - Skin Skin Exam: Normal Color, Warm Discharge Plan - Discharge Medications Prescriptions: Ferrous Sulfate 325 mg PO BID #60 tablet Vancomycin HCl 125 mg PO QID 10 Days #40 capsule - Follow Up Plan Condition: FAIR Disposition: HOME/ ROUTINE Instructions: Clostridium difficile, Wound Infection Additional Instructions: 1. Please continue Vancomycin 125mg PO four times a day x 10 days 2. Started on Ferrous sulfate 325mg PO BID for iron deficiency anemia 3. Increase intake of foods rich in iron 4. Patient advised will need outpatient GI follow up for anemia 5. Please follow up with Dr East outpatient as scheduled 6. Whether to continue IV antibiotics for osteomyelitis to be decided by ID and Dr East Referrals: Lillian Rosado MD [Primary Care Provider] - <Zak Shaw - Last Filed: 03/10/18 07:29> Provider - Provider Date of Admission: 03/08/18 12:17 Attending physician: Zka Shaw MD Primary care physician: Lillian Rosado MD Time Spent in preparation of Discharge (in minutes): 35 Hospital Course - Lab Results Lab Results: Micro Results 03/08/18 12:20 Blood Blood Culture - Preliminary NO GROWTH AFTER 24 HOURS 03/08/18 13:18 Urine Urine Culture - Final No Growth (<1,000 CFU/ML) Most Recent Lab Values WBC 10.9 10^3/ul (4.5-11.0) 03/09/18 11:35 RBC 4.16 10^6/uL (3.5-6.1) 03/09/18 11:35 Hgb 9.0 g/dL (14.0-18.0) L 03/09/18 11:35 Hct 29.6 % (42.0-52.0) L 03/09/18 11:35 MCV 71.2 fl (80.0-105.0) L 03/09/18 11:35 MCH 21.6 pg (25.0-35.0) L 03/09/18 11:35 MCHC 30.4 g/dl (31.0-37.0) L 03/09/18 11:35 RDW 19.7 % (11.5-14.5) H 03/09/18 11:35 Plt Count 435 10^3/uL (120.0-450.0) 03/09/18 11:35 MPV 8.9 fl (7.0-11.0) 03/09/18 11:35 Gran % 66.2 % (50.0-68.0) 03/09/18 11:35 Lymph % (Auto) 27.9 % (22.0-35.0) 03/09/18 11:35 [place] % (Auto) 4.1 % (1.0-6.0) 03/09/18 11:35 Eos % (Auto) 1.6 % (1.5-5.0) 03/09/18 11:35 Baso % (Auto) 0.2 % (0.0-3.0) 03/09/18 11:35 Gran # 7.24 (1.4-6.5) H 03/09/18 11:35 Lymph # (Auto) 3.1 (1.2-3.4) 03/09/18 11:35 [place] # (Auto) 0.5 (0.1-0.6) 03/09/18 11:35 Eos # (Auto) 0.2 (0.0-0.7) 03/09/18 11:35 Baso # (Auto) 0.02 K/mm3 (0.0-2.0) 03/09/18 11:35 ESR 106 mm/hr (0.00-15.0) H 03/09/18 06:20 Retic Count 2.92 % (0.5-1.5) H 03/09/18 06:20 Sodium 141 mmol/L (132-148) 03/09/18 06:20 Potassium 4.0 mmol/L (3.6-5.0) 03/09/18 06:20 Chloride 106 mmol/L (98-107) 03/09/18 06:20 Carbon Dioxide 25 mmol/L (21-33) 03/09/18 06:20 Anion Gap 14 (10-20) 03/09/18 06:20 BUN 18 mg/dL (7-21) 03/09/18 06:20 Creatinine 1.2 mg/dl (0.8-1.5) 03/09/18 06:20 Est GFR ( Amer) > 60 03/09/18 06:20 Est GFR (Non-Af Amer) > 60 03/09/18 06:20 POC Glucose (mg/dL) 151 mg/dL (65-110) H 03/09/18 11:04 Random Glucose 168 mg/dL (70-110) H 03/09/18 06:20 Hemoglobin A1c 10.3 % (4.2-6.5) H 03/09/18 06:20 Calcium 9.4 mg/dL (8.4-10.5) 03/09/18 06:20 Phosphorus 5.0 mg/dL (2.5-4.5) H 03/09/18 06:20 Magnesium 1.6 mg/dL (1.7-2.2) L 03/09/18 06:20 Iron 33 ug/dL (45-180) L 03/09/18 06:20 TIBC 236 ug/dL (261-462) L 03/09/18 06:20 % Saturation 14 % (20-55) L 03/09/18 06:20 Transferrin 160.29 mg/dL (206-381) L 03/09/18 06:20 Ferritin 74.0 ng/mL 03/09/18 06:20 Total Bilirubin 0.1 mg/dL (0.2-1.3) L 03/09/18 06:20 AST 37 U/L (17-59) 03/09/18 06:20 ALT 40 U/L (7-56) 03/09/18 06:20 Alkaline Phosphatase 62 U/L (38-126) 03/09/18 06:20 C-Reactive Protein 9.40 mg/L (0.0-9.9) 03/09/18 06:20 Total Protein 6.9 g/dL (5.8-8.3) 03/09/18 06:20 Albumin 3.1 g/dL (3.0-4.8) 03/09/18 06:20 Globulin 3.8 gm/dL 03/09/18 06:20 Albumin/Globulin Ratio 0.8 (1.1-1.8) L 03/09/18 06:20 Triglycerides 154 mg/dL (35-160) 03/09/18 06:20 Cholesterol 107 mg/dL (130-200) L 03/09/18 06:20 LDL Cholesterol Direct 46 mg/dL (0-129) 03/09/18 06:20 HDL Cholesterol 21 mg/dL (29-60) L 03/09/18 06:20 Lipase 143 U/L (23-300) 03/08/18 11:50 Vitamin B12 441 pg/mL (239-931) 03/09/18 06:20 Folate > 20.0 ng/mL 03/09/18 06:20 Procalcitonin 0.06 NG/ML (0.19-0.49) L 03/09/18 06:20 Urine Color Yellow (YELLOW) 03/08/18 12:30 Urine Appearance Clear (CLEAR) 03/08/18 12:30 Urine pH 6.0 (4.7-8.0) 03/08/18 12:30 Ur Specific [place] 1.025 (1.005-1.035) 03/08/18 12:30 Urine Protein 100 mg/dL (<30 mg/dL) H 03/08/18 12:30 Urine Glucose (UA) Negative mg/dL (NEGATIVE) 03/08/18 12:30 Urine Ketones Negative mg/dL (NEGATIVE) 03/08/18 12:30 Urine Blood Moderate (NEGATIVE) H 03/08/18 12:30 Urine Nitrate Negative (NEGATIVE) 03/08/18 12:30 Urine Bilirubin Negative (NEGATIVE) 03/08/18 12:30 Urine Urobilinogen 0.2 E.U./dL (<1 E.U./dL) 03/08/18 12:30 Ur Leukocyte Esterase Negative [place]/uL (NEGATIVE) 03/08/18 12:30 Urine RBC 15 - 20 /hpf (0-2) 03/08/18 12:30 Urine WBC 1 - 3 /hpf (0-6) 03/08/18 12:30 Ur Epithelial Cells 0 - 2 /hpf (0-5) 03/08/18 12:30 Amorphous Sediment Few 03/08/18 12:30 Urine Bacteria Many (NEG) 03/08/18 12:30 Fine Granular Casts 0 - 2 /hpf (0-2) 03/08/18 12:30 Coarse Granular Casts Trace /hpf (0-2) H 03/08/18 12:30 Urine Other Fiber 03/08/18 12:30 Blood Type AB POSITIVE 03/09/18 10:15 Antibody Screen Negative 03/09/18 10:15 Crossmatch See Detail 03/09/18 10:15 BBK History Checked Patient has bt 03/09/18 10:15 Attending/Attestation - Attestation I have personally seen and examined this patient.: Yes I have fully participated in the care of the patient.: Yes I have reviewed all pertinent clinical information, including history, physical exam and plan: Yes Notes (Text): 03/09/18 53 year old male with past medical history of hypertension, diabetes, and osteomyelitis of right foot which was being treated by his shellacker with iv antibiotics and hyperbaric therapy presented with complaint of diarrhea. Recent outpatient testing was positive for C Diff antigena and he was started on po vanco. His diarrhea resolved. He was seen by ID and podiatry and on antibiotic for osteomyelitis of right foot. He was noted to have iron deficiency anemia and started on iron supplements. Advised to follow up with GI and pmd for workup for anemia. Continue with home medications for hypertension and diabetes. He was also started on lisinopril for hypertension. Patient is discharged home to follow up with pmd. Follow up with GI. Follow up with podiatry, Dr. East for wound care, HBO and antibiotics. Zak Shaw MD Hospitalist.
[2018-03-09 15:28] VITALS: BP 162/90; PULSE 74; TEMP 97.7; O2SAT 100
[2018-03-09 17:08] LABS: FOLATE > 20.0 ng/mL
--- NOTE | 2018-03-10 03:06 | CON ---
DATE: HISTORY OF PRESENT ILLNESS: A 53-year-old male well known to the [facility]ound [facility] team, seen at bedside for continued evaluation and management of severe diabetic right foot ulcerations. Patient was seen in wound care yesterday and was complaining of excessive diarrhea for the last 5 days. He was told to be admitted for an evaluation for Clostridium difficile. He denies any fevers or chills. He has no nausea or vomiting and his diarrhea has ceased. PAST MEDICAL HISTORY: Significant for morbid obesity, longstanding insulin-dependent diabetes with peripheral arterial disease and peripheral neuropathy, essential hypertension, peripheral vascular disease. PAST SURGICAL HISTORY: Includes right foot transmetatarsal amputation, left foot first and second toe amputation. PHYSICAL EXAMINATION: VITAL SIGNS: Revealed temperature of 97.7, pulse rate of 74, blood pressure 162/90, respiratory rate of 20. LABORATORY FINDINGS: Reveal a white count of 10.9, hemoglobin of 9, hematocrit of 29.6, and platelet count of 435. He has an ESR of 106. Urine cultures and blood cultures show no growth. OBJECTIVE: Nonpalpable pedal pulses noted bilaterally. Absent pedal hair growth noted bilaterally. Patient is unable to detect 5.07 g monofilament wire testing bilaterally. Right foot presents with numerous ulcerations on the dorsal aspect of the foot as well as on the plantar aspect of the foot. There is a large defect at the calcaneal region with exposed calcaneal bone. All the wounds show serous drainage. There is no purulence. There is positive osteomyelitis in left heel. ASSESSMENT: Osteomyelitis of the right calcaneus with extensive diabetic foot ulcerations. PLAN: The patient's wounds were cleansed with normal sterile saline and application of calcium alginate. Adaptic and dry sterile dressing was applied. Dr. eMraz's note was read and appreciated. Patient will continue with IV antibiotics and patient will follow up once discharged in the wound center. Erasto Subramanian DPM
== END 2018-03-09 18:19 | disposition home or self-care (01) ==
LOC: ED 10:38 → ERH 12:17 → 5RSO 16:18
PROVIDERS: ADMIT Internal Medicine; ATTEND Internal Medicine
DX: A04.72 Enterocolitis due to Clostridium difficile, not specified as recurrent (principal); D50.9 Iron deficiency anemia, unspecified; E10.40 Type 1 diabetes mellitus with diabetic neuropathy, unspecified; E10.51 Type 1 diabetes mellitus with diabetic peripheral angiopathy without gangrene; E10.621 Type 1 diabetes mellitus with foot ulcer; E10.69 Type 1 diabetes mellitus with other specified complication; M86.8X7 Other osteomyelitis, ankle and foot; E66.01 Morbid (severe) obesity due to excess calories; I10 Essential (primary) hypertension; I25.10 Atherosclerotic heart disease of native coronary artery without angina pectoris; L97.519 Non-pressure chronic ulcer of other part of right foot with unspecified severity; Z16.24 Resistance to multiple antibiotics; Z79.02 Long term (current) use of antithrombotics/antiplatelets; Z79.82 Long term (current) use of aspirin; Z79.4 Long term (current) use of insulin; Z87.891 Personal history of nicotine dependence; Z89.431 Acquired absence of right foot; Z89.422 Acquired absence of other left toe(s); Z95.5 Presence of coronary angioplasty implant and graft; B96.5 Pseudomonas (aeruginosa) (mallei) (pseudomallei) as the cause of diseases classified elsewhere
CPT/HCPCS: 36415; 80053; 80061; 81001; 82607; 82728; 82746; 82948; 83036; 83690; 83735; 84100; 84145; 84466; 85025; 85044; 85651; 86140; 86850; 86900; 86920; 87040; 87086; 96365; 96366; 96367; 96372; 96375; 99284; G0378; J0360; J0714; J1650; J3475; J7040

== ENCOUNTER 2018-03-22 12:33 | Emergency (ER) | payer MEDICARE ==
[2018-03-22 12:33] VITALS: BMI 39.2
== END 2018-03-22 12:47 | disposition left against medical advice (07) ==
LOC: ED 12:33
DX: Z02.89 Encounter for other administrative examinations (principal)

== ENCOUNTER 2018-03-30 08:31 | Inpatient (IN) | payer MEDICARE ==
[2018-03-30 08:51] VITALS: BMI 39.1
--- NOTE | 2018-03-30 09:22 | ED PDOC ---
Arrival/HPI - General Chief Complaint: Lower Extremity Problem/Injury Time Seen by Provider: 03/30/18 08:36 Historian: Patient - History of Present Illness Narrative History of Present Illness (Text): 03/30/18 09:22 Pt is a 53 yr old male with a long h/o DMII who presents to the ED for surgical management of a right diabetic foot. Pt states he was seen by his PMD, Dr. East yesterday who assessed the foot and discussed amputation; referred pt to the ED/ Pt denies chest pain, shortness of breath, fever, chills, CISNEROS, back pain, change in urine or bowel, or any other complaints. Time/Duration: Prior to Arrival Symptom Onset: Gradual Symptom Course: Unchanged Quality: Aching, Pressure Severity Level: 6 Activities at Onset: Rest, Light Context: Home Past Medical History - Provider Review Nursing Documentation Reviewed: Yes - Travel History Have you recently traveled outside [place] w/in the past 3 mons?: No - Infectious Disease Hx of Infectious Diseases: None - Cardiac Hx Cardiac Disorders: Yes Hx Hypertension: Yes - Pulmonary Hx Respiratory Disorders: No - Neurological Hx Neurological Disorder: Yes Other/Comment: NEUROPATHY - HEENT Hx HEENT Disorder: No - Renal Hx Renal Disorder: No - Endocrine/Metabolic Hx Endocrine Disorders: Yes Hx Diabetes Mellitus Type 1: Yes Hx Diabetes Mellitus Type 2: Yes - Hematological/Oncological Hx Blood Disorders: No - Integumentary Hx Dermatological Disorder: Yes Hx Cellulitis: Yes - Musculoskeletal/Rheumatological Hx Falls: No - Gastrointestinal Hx Gastrointestinal Disorders: Yes Hx Diarrhea: Yes - Genitourinary/Gynecological Hx Genitourinary Disorders: No - Psychiatric Hx Psychophysiologic Disorder: No Hx Emotional Abuse: No Hx Physical Abuse: No Hx Substance Use: No - Surgical History Hx Cardiac Catheterization: Yes Other/Comment: 06/26 [employer]LC[employer] - Anesthesia Hx Anesthesia: Yes Hx Anesthesia Reactions: No Hx Malignant Hyperthermia: No - Suicidal Assessment Feels Threatened In Home Enviroment: No Family/Social History - Physician Review Nursing Documentation Reviewed: Yes Family/Social History: Unknown Family HX Smoking Status: Former Smoker Hx Alcohol Use: No Hx Substance Use: No Allergies/Home Meds Allergies/Adverse Reactions: Allergies No Known Allergies Allergy (Verified 03/30/18 13:19) Home Medications: Home Meds Medication Instructions Recorded Confirmed Aspirin [Lo-Dose Aspirin EC] 81 mg PO DAILY 03/30/18 03/30/18 Atorvastatin [Lipitor] 20 mg PO DAILY 03/30/18 03/30/18 Clopidogrel [Plavix] 75 mg PO DAILY 03/30/18 03/30/18 Enalapril Maleate [Vasotec] 10 mg PO BID 03/30/18 03/30/18 Famotidine [Pepcid] 20 mg PO BID 03/30/18 03/30/18 Gabapentin 300 mg PO DAILY 03/30/18 03/30/18 Hydrochlorothiazide [Microzide] 12.5 mg PO DAILY 03/30/18 03/30/18 Insulin Aspart Prot/Insuln Asp 60 unit SQ DAILY 03/30/18 03/30/18 [Novolog Mix 70-30 Vial] Insulin Glargine,Hum.rec.anlog 50 unit SC DAILY 03/30/18 03/30/18 [Basaglar Kwikpen U-100] Metoprolol Tartrate [Lopressor] 25 mg PO DAILY 03/30/18 03/30/18 Oxycodone HCl [Oxycodone HCl ER] 10 mg PO Q4 03/30/18 03/30/18 Vancomycin HCl [Vancocin 125 MG 125 mg PO DAILY 03/30/18 03/30/18 Cap] Review of Systems - Review of Systems Systems not reviewed;Unavailable: Acuity of Condition Constitutional: Normal Eyes: Normal ENT: Normal Respiratory: Normal Cardiovascular: Normal Gastrointestinal: Normal Genitourinary Male: Normal Musculoskeletal: Normal Skin: Normal, Skin Lesions (left ankle), Ulcer (diabetic foot ulcer on right) Neurological: Normal Endocrine: Normal Hemo/Lymphatic: Normal Psychiatric: Normal Physical Exam Vital Signs Reviewed: Yes Vital Signs Temp Pulse Resp BP Pulse Ox 03/30/18 11:52 75 18 138/79 98 03/30/18 10:50 78 16 142/80 98 03/30/18 08:50 97.9 F 73 18 137/86 100 Temperature: Afebrile Blood Pressure: Normal Pulse: Regular Respiratory Rate: Normal Appearance: Positive for: Well-Appearing, Non-Toxic, Comfortable Pain Distress: Moderate Mental Status: Positive for: Alert and Oriented X 3 Finger Stick Blood Glucose: 446 - Systems Exam Head: Present: Atraumatic, Normocephalic Pupils: Present: PERRL Extroacular Muscles: Present: EOMI Conjunctiva: Present: Normal Mouth: Present: Moist Mucous Membranes Neck: Present: Normal Range of Motion Respiratory/Chest: Present: Clear to Auscultation, Good Air Exchange. No: Respiratory Distress, Accessory Muscle Use Cardiovascular: Present: Regular Rate and Rhythm, Normal S1, S2. No: Murmurs Abdomen: No: Tenderness, Distention, Peritoneal Signs Back: Present: Normal Inspection Upper Extremity: Present: Normal Inspection. No: Cyanosis, Edema Lower Extremity: Present: Normal Inspection, Normal ROM (limited b/l), Deformity (Left foot with digits 3-5 remaining, Right foot without digits and heel), Temperature Abnormalties (right foot). No: Edema, Jessee's Sign Neurological: Present: GCS=15, CN II-XII Intact, Speech Normal, Normal Sensory Function (altered sensation from distal tibia downward) Skin: Present: Warm, Dry, Normal Color. No: Rashes Psychiatric: Present: Alert, Oriented x 3, Normal Insight, Normal Concentration Medical Decision Making ED Course and Treatment: 03/30/18 09:26 Impression Pt is a 53 yr old male with a long h/o DMII who presents to the ED for surgical management of a right diabetic foot. Pt sent here by Dr. East for amputation of the right foot; right foot fully dressed with some small serosanguineous fluid at the heel present Plan Pre-Op Labs and imaging Contact Dr. East assess and dispo 03/30/18 09:35 Case courtney Brenner 03/30/18 10:10 Case COURTNEY East and PMD Dr. Rosado to discuss admission to Med/Surg Pt had increase in pain; Toradol IM given - Lab Interpretations Microbiology Results: Microbiology Results 03/30/18 09:45 Blood-Venous Blood Culture - Preliminary NO GROWTH AFTER 48 HOURS 03/30/18 09:45 Blood-Venous Blood Culture - Preliminary NO GROWTH AFTER 48 HOURS Lab Results: 03/30/18 09:45 03/30/18 09:45 Lab Results 03/30/18 10:07: Blood Type AB POSITIVE, Antibody Screen Negative, Crossmatch See Detail, BBK History Checked Patient has bt 03/30/18 09:45: Sodium 134, Potassium 4.8, Chloride 99, Carbon Dioxide 24, Anion Gap 16, BUN 21, Creatinine 1.4, Est GFR ( Amer) > 60, Est GFR (Non- Af Amer) 53, Random Glucose 519 H* D, Calcium 8.7, Total Bilirubin 0.2, AST 46, ALT 59 H, Alkaline Phosphatase 124, Total Protein 7.8, Albumin 3.5, Globulin 4.3 , Albumin/Globulin Ratio 0.8 L 03/30/18 09:45: PT 14.8 H, INR 1.28 H, APTT 30.4 03/30/18 09:45: WBC 16.9 H D, RBC 3.57, Hgb 7.9 L, Hct 25.7 L, MCV 72.0 L, MCH 22.1 L, MCHC 30.7 L, RDW 18.4 H, Plt Count 423, MPV 9.4, Gran % 78.4 H, Lymph % (Auto) 15.7 L, [place] % (Auto) 4.4, Eos % (Auto) 1.4 L, Baso % (Auto) 0.1, Gran # 13.23 H, Lymph # (Auto) 2.7, [place] # (Auto) 0.7 H, Eos # (Auto) 0.2, Baso # (Auto ) 0.01 03/30/18 08:52: POC Glucose (mg/dL) 446 H* - RAD Interpretation Radiology Orders: 03/30/18 09:29 CHEST PORTABLE [RAD] Stat - Medication Orders Current Medication Orders: Atorvastatin Calcium (Lipitor) 20 mg PO DAILY [facility] Last Admin: 04/01/18 09:10 Dose: 20 mg Docusate Sodium (Colace) 100 mg PO BID [facility] Enoxaparin Sodium (Lovenox) 40 mg SC DAILY [facility] PRN Reason: Protocol Famotidine (Pepcid) 20 mg PO BID [facility] Last Admin: 04/01/18 17:12 Dose: 20 mg Gabapentin (Neurontin) 300 mg PO DAILY [facility] PRN Reason: Protocol Last Admin: 04/01/18 09:19 Dose: Hydrochlorothiazide (Microzide) 12.5 mg PO DAILY [facility] Last Admin: 04/01/18 09:12 Dose: 12.5 mg Hydromorphone HCl (Dilaudid) 1 mg IVP Q4H PRN PRN Reason: Pain, severe (8-10) Last Admin: 04/01/18 21:09 Dose: 1 mg MAR Pain Assessment Document 04/01/18 21:09 OLIVD (Rec: 04/01/18 21:09 OLIVD [id number]) Pain Reassessment Is this a pain reassessment? No Presence of Pain Presence of Pain Yes Pain Scale Used Pain Scale Used Numeric Location Left, Right or Bilateral Right Pain Location Body Site Leg Foot Description Description Constant Intensity of Pain at present 9 Pain Behavior Moaning IVP Administration Document 04/01/18 21:09 OLIVD (Rec: 04/01/18 21:09 OLIVD [id number]) Charges for Administration # of IVP Administrations 1 Meropenem (Merrem Iv 1 Gm Premix) 50 mls @ 100 mls/hr IVPB Q12 JORGE ALBERTO PRN Reason: Protocol Last Admin: 04/01/18 09:12 Dose: 100 mls/hr eMAR Start Stop Document 04/01/18 09:12 BIR (Rec: 04/01/18 09:12 BIR [id number]) Intravenous Solution Start Date 04/01/18 Start Time 09:12 End Date 04/01/18 End time 10:00 Total Infusion Time 48 Sodium Chloride (Sodium Chloride 0.45%) 1,000 mls @ 100 mls/hr IV .Q10H [facility] Last Admin: 04/01/18 06:14 Dose: 100 mls/hr eMAR Start Stop Document 04/01/18 06:14 TTC (Rec: 04/01/18 06:14 TTC [id number]) Intravenous Solution Start Date 04/01/18 Start Time 06:14 End Date 04/01/18 Insulin Detemir (Levemir) 60 unit SC HS [facility] Insulin Human Lispro (Humalog Low) 0 units SC ACHS JORGE ALBERTO PRN Reason: Protocol Last Admin: 04/01/18 17:11 Dose: Not Given Non-Admin Reason: Blood Sugar Parameter MAR Blood Glucose Document 04/01/18 17:11 BIR (Rec: 04/01/18 17:12 BIR [id number]) Blood Glucose Finger Stick Blood Glucose (70-120) 198 Insulin Human Lispro (Humalog) 24 units SC AC [facility] Last Admin: 04/01/18 17:11 Dose: 24 units MAR Blood Glucose Document 04/01/18 17:11 BIR (Rec: 04/01/18 17:11 BIR [id number]) Blood Glucose Finger Stick Blood Glucose (70-120) 198 Subcutaneous Administrations Document 04/01/18 17:11 [facility] (Rec: 04/01/18 17:11 [facility][id number]) Charges for Administration # of Subcutaneous Administrations 1 Ketorolac Tromethamine (Toradol) 30 mg IVP Q6H PRN PRN Reason: Pain, moderate (4-7) Last Admin: 03/30/18 13:56 Dose: 30 mg MAR Pain Assessment Document 03/30/18 13:56 MV (Rec: 03/30/18 13:56 MV [id number]) Pain Reassessment Is this a pain reassessment? No IVP Administration Document 03/30/18 13:56 MV (Rec: 03/30/18 13:56 MV [id number]) Charges for Administration # of IVP Administrations 1 Lisinopril (Zestril) 20 mg PO DAILY [facility] Last Admin: 04/01/18 09:15 Dose: 20 mg [facility] Pulse and Blood Pressure Document 04/01/18 09:15 [facility] (Rec: 04/01/18 09:15 [id number]) Pulse Pulse Rate (60-90) 75 Blood Pressure Blood Pressure (100/60-150/90) 182/82 Metoprolol Tartrate (Lopressor) 25 mg PO DAILY [facility] Last Admin: 04/01/18 09:10 Dose: 25 mg [facility] Pulse and Blood Pressure Document 04/01/18 09:10 [facility] (Rec: 04/01/18 09:11 [facility][id number]) Pulse Pulse Rate (60-90) 75 Blood Pressure Blood Pressure (100/60-150/90) 182/82 Ondansetron HCl (Zofran Inj) 4 mg IVP ONCE PRN PRN Reason: Nausea/Vomiting Oxycodone/Acetaminophen (Percocet 10/325 Mg Tab) 1 tab PO Q4H PRN PRN Reason: Pain, moderate (4-7) Last Admin: 04/01/18 18:53 Dose: 1 tab MAR Pain Assessment Document 04/01/18 18:53 BIR (Rec: 04/01/18 18:53 [facility] [id number] Pain Reassessment Is this a pain reassessment? No Sleep Is patient sleeping during reassessment? No Presence of Pain Presence of Pain Yes Discontinued Medications Hydromorphone HCl (Dilaudid) 0.5 mg IVP Q15M PRN PRN Reason: Pain, moderate (4-7) Stop: 04/01/18 15:48 Hydromorphone HCl (Dilaudid) 0.5 mg IVP Q4H PRN PRN Reason: Pain, severe (8-10) Last Admin: 04/01/18 16:48 Dose: 0.5 mg MAR Pain Assessment Document 04/01/18 16:48 BIR (Rec: 04/01/18 16:48 BIR [id number]) Pain Reassessment Is this a pain reassessment? No Sleep Is patient sleeping during reassessment? No Presence of Pain Presence of Pain Yes IVP Administration Document 04/01/18 16:48 BIR (Rec: 04/01/18 16:48 BIR [id number]) Charges for Administration # of IVP Administrations 1 Vancomycin HCl (Vancomycin 1gm) 1 gm in 250 mls @ 167 mls/hr IVPB STAT STA PRN Reason: Protocol Stop: 03/30/18 12:55 Last Admin: 03/30/18 11:42 Dose: 167 mls/hr eMAR Start Stop Document 03/30/18 11:42 MS (Rec: 03/30/18 11:46 MS [id number]) Intravenous Solution Start Date 03/30/18 Start Time 11:46 End Date 03/30/18 End time 13:16 Total Infusion Time 90 Sodium Chloride (Sodium Chloride 0.45%) 1,000 mls @ 30 mls/hr IV .Q24H JORGE ALBERTO Amikacin Sulfate 600 mg/ (Dextrose) 102.4 mls @ 204 mls/hr IVPB ONCE ONE PRN Reason: Protocol Stop: 03/31/18 16:00 Amikacin Sulfate 600 mg/ (Dextrose) 252.4 mls @ 204 mls/hr IVPB ONCE ONE PRN Reason: Protocol Stop: 03/31/18 16:44 Amikacin Sulfate 600 mg/ (Dextrose) 252.4 mls @ 204 mls/hr IVPB ONCE ONE PRN Reason: Protocol Stop: 03/31/18 16:44 Last Admin: 03/31/18 16:48 Dose: 204 mls/hr eMAR Start Stop Document 03/31/18 16:48 LO (Rec: 03/31/18 16:49 LO [id number]) Intravenous Solution Start Date 03/31/18 Start Time 16:49 Lactated Ringer's (Lactated Ringer's) 1,000 mls @ 75 mls/hr IV .[id number] [facility] Stop: 04/01/18 16:01 Insulin Detemir (Levemir) 50 unit SC HS [facility] Last Admin: 03/30/18 22:17 Dose: 50 unit MAR Blood Glucose Document 03/30/18 22:17 ZARAL (Rec: 03/30/18 22:17 [id number]) Blood Glucose Finger Stick Blood Glucose (70-120) 236 Subcutaneous Administrations Document 03/30/18 22:17 ZARAL (Rec: 03/30/18 22:17 [facility]-[id number]) Injection Site MAR Injection Site Right Abdomen Charges for Administration # of Subcutaneous Administrations 1 Insulin Detemir (Levemir) 54 unit SC [facility] Last Admin: 03/31/18 22:01 Dose: 54 unit Subcutaneous Administrations Document 03/31/18 22:01 TTC (Rec: 03/31/18 22:02 TTC [facility] [id number] Charges for Administration # of Subcutaneous Administrations 1 Insulin Human Lispro (Humalog) 20 units SC AC [facility] Last Admin: 04/01/18 08:57 Dose: Not Given Non-Admin Reason: NPO Insulin Human Regular (Humulin R) 8 units SC STAT [facility] Stop: 03/30/18 13:10 Last Admin: 03/30/18 13:15 Dose: 8 units MAR Blood Glucose Document 03/30/18 13:15 MS (Rec: 03/30/18 13:15 MS [id number]) Blood Glucose Finger Stick Blood Glucose (70-120) 446 Subcutaneous Administrations Document 03/30/18 13:15 MS (Rec: 03/30/18 13:15 MS [id number]) Injection Site MAR Injection Site Right Arm Charges for Administration # of Subcutaneous Administrations 1 Morphine Sulfate (Morphine) 2 mg IVP Q3 PRN PRN Reason: PAIN, SEVERE [8-10] Last Admin: 03/31/18 05:36 Dose: 2 mg MAR Pain Assessment Document 03/31/18 05:36 OLIVD (Rec: 03/31/18 05:37 OLIVD [id number] Pain Reassessment Is this a pain reassessment? No Presence of Pain Presence of Pain Yes Pain Scale Used Pain Scale Used Numeric Location Left, Right or Bilateral Right Pain Location Body Site Foot Description Description Constant Intensity of Pain at present 8 IVP Administration Document 03/31/18 05:36 OLIVD (Rec: 03/31/18 05:37 OLIVD [id number] Charges for Administration # of IVP Administrations 1 Morphine Sulfate (Morphine) 2 mg IVP Q3 PRN PRN Reason: PAIN, SEVERE [8-10] Last Admin: 03/31/18 16:50 Dose: 2 mg IVP Administration Document 03/31/18 16:50 LO (Rec: 03/31/18 16:50 LO [id number]) Charges for Administration # of IVP Administrations 1 Morphine Sulfate (Morphine) 2 mg IVP Q3 PRN PRN Reason: PAIN, SEVERE [8-10] Last Admin: 04/01/18 05:56 Dose: 2 mg MAR Pain Assessment Document 04/01/18 05:56 TTC (Rec: 04/01/18 05:56 TTC [facility] Pain Reassessment Is this a pain reassessment? No Sleep Is patient sleeping during reassessment? No Presence of Pain Presence of Pain Yes Pain Scale Used Pain Scale Used Numeric Location Left, Right or Bilateral Right Pain Location Body Site Foot IVP Administration Document 04/01/18 05:56 TTC (Rec: 04/01/18 05:56 TTC [id number] Charges for Administration # of IVP Administrations 1 Re-Assess: MAR Pain Assessment Document 04/01/18 06:56 TTC (Rec: 04/01/18 07:15 TTC [id number]) Pain Reassessment Is this a pain reassessment? Yes Sleep Is patient sleeping during reassessment? No Presence of Pain Presence of Pain No Morphine Sulfate (Morphine) 3 mg IVP Q3 PRN PRN Reason: PAIN, SEVERE [8-10] Last Admin: 04/01/18 09:13 Dose: 3 mg MAR Pain Assessment Document 04/01/18 09:13 BIR (Rec: 04/01/18 09:13 BIR [id number]) Pain Reassessment Is this a pain reassessment? No Sleep Is patient sleeping during reassessment? No Presence of Pain Presence of Pain Yes IVP Administration Document 04/01/18 09:13 BIR (Rec: 04/01/18 09:13 [facility] [id number]) Charges for Administration # of IVP Administrations 1 Pneumococcal Polyvalent Vaccine (Pneumovax 23 Vaccine) 0.5 ml IM .ONCE ONE Stop: 03/30/18 17:51 Disposition/Present on Arrival - Present on Arrival Any Indicators Present on Arrival: Yes History of DVT/PE: No History of Uncontrolled Diabetes: No Urinary Catheter: No History of Decub. Ulcer: No History Surgical Site Infection Following: None - Disposition Have Diagnosis and Disposition been Completed?: Yes Diagnosis: Peripheral vascular disease, DM2 (diabetes mellitus, type 2), Diabetic neuropathy Disposition: HOSPITALIZED Disposition Time: 10:50 Patient Plan: Admission Patient Problems: Current Active Problems Problem Status Onset Peripheral vascular disease Acute DM2 (diabetes mellitus, type 2) Chronic ~2007 Condition: STABLE
[2018-03-30 10:13] LABS: BASO # 0.01 K/mm3 (0.0-2.0); BASO % 0.1 % (0.0-3.0); EOS # 0.2 (0.0-0.7); EOS % 1.4 % (1.5-5.0); GRAN # 13.23 (1.4-6.5); GRAN % 78.4 % (50.0-68.0); HEMOGLOBIN 7.9 g/dL (14.0-18.0); LYMPH # 2.7 (1.2-3.4); LYMPH % 15.7 % (22.0-35.0); MEAN CORPUSCULAR HEMOGLOBIN 22.1 pg (25.0-35.0); MEAN CORPUSCULAR HGB CONC 30.7 g/dl (31.0-37.0); MEAN PLATELET VOLUME 9.4 fl (7.0-11.0); MONO # 0.7 (0.1-0.6); MONO % 4.4 % (1.0-6.0); RBC 3.57 10^6/uL (3.5-6.1); RED CELL DISTRIBUTION WIDTH 18.4 % (11.5-14.5); WHITE BLOOD COUNT 16.9 10^3/ul (4.5-11.0)
[2018-03-30 10:21] LABS: INR 1.28 (0.93-1.08); PARTIAL THROMBOPLASTIN TIME 30.4 Seconds (25.1-36.5); PROTHROMBIN TIME 14.8 SECONDS (9.4-12.5)
[2018-03-30 10:29] LABS: BLOOD UREA NITROGEN 21 mg/dL (7-21)
[2018-03-30 10:34] LABS: ALB/GLOB RATIO 0.8 (1.1-1.8); ALBUMIN 3.5 g/dL (3.0-4.8); ALT/SGPT 59 U/L (7-56); AST/SGOT 46 U/L (17-59); CALCIUM 8.7 mg/dL (8.4-10.5); GFR AFRICAN-AMERICAN > 60; GFR NON-AFRICAN AMERICAN 53
--- NOTE | 2018-03-30 10:47 | RAD ---
HISTORY: Pre-Op COMPARISON: No prior. FINDINGS: LUNGS: No active pulmonary disease. PLEURA: No significant pleural effusion identified, no pneumothorax apparent. CARDIOVASCULAR: Normal. OSSEOUS STRUCTURES: No significant abnormalities. VISUALIZED UPPER ABDOMEN: Normal. OTHER FINDINGS: None. IMPRESSION: No active disease.
[2018-03-30] MEDS ORDERED: Vancomycin 1gm in NS 250ml 1 GM/250 ML BAG IVPB STA (11:26)
[2018-03-30] MEDS ORDERED: Sodium Chloride 0.45% 1,000 ML IV SCH (12:00)
[2018-03-30] MEDS ORDERED: Insulin Regular 1 UNITS/0.01 ML ML SC STA (13:09)
[2018-03-30] MEDS ORDERED: Insulin Regular 1 UNITS/0.01 ML ML ONE (13:11)
[2018-03-30] MEDS: Meropenem IV 1 gm in NS 50 ML IVPB SCH ×2 (13:12→21:15)
[2018-03-30 13:26] LABS: URINE BILIRUBIN NEGATIVE (NEGATIVE); URINE BLOOD MODERATE (NEGATIVE); URINE GLUCOSE (UA) >=1000 mg/dL (NEGATIVE); URINE LEUKOCYTE ESTERASE NEGATIVE Leu/uL (NEGATIVE); URINE PROTEIN 100 mg/dL (<30 mg/dL); URINE UROBILINOGEN 0.2 E.U./dL (<1 E.U./dL)
[2018-03-30 13:27] LABS: URINE APPEARANCE SL CLOUDY (CLEAR); URINE COLOR YELLOW (YELLOW)
--- NOTE | 2018-03-30 14:31 | CP.PCM.CON ---
<Marita Aguirre - Last Filed: 03/30/18 14:40> History of Present Illness - History of Present Illness History of Present Illness: 53 y/o male known to Dr. East and Dr. Subramanian's wound care service seen at bedside after consultation for multiple right foot diabetic ulcerations to transmetatarsal amputation stump. Pt states he was sent to the hospital from Dr. East after his wound care visit yesterday. States the foot has been draining a lot of pus and he has been experiencing fever and chills the last couple of days. States he is ready for the foot to be amputated. At present, states his fever and chills have resolved. Denies N/V/CP/SOB. Review of Systems - Review of Systems All systems: reviewed and no additional remarkable complaints except (per HPI) Past Patient History - Infectious Disease Hx of Infectious Diseases: None - Past Medical History & Family History Past Medical History?: Yes - Past Social History Smoking Status: Former Smoker - CARDIAC Hx Cardiac Disorders: Yes Hx Hypertension: Yes - PULMONARY Hx Respiratory Disorders: No - NEUROLOGICAL Hx Neurological Disorder: Yes Other/Comment: NEUROPATHY - HEENT Hx HEENT Problems: No - RENAL Hx Chronic Kidney Disease: No - ENDOCRINE/METABOLIC Hx Endocrine Disorders: Yes Hx Diabetes Mellitus Type 1: Yes Hx Diabetes Mellitus Type 2: Yes - HEMATOLOGICAL/ONCOLOGICAL Hx Blood Disorders: No - INTEGUMENTARY Hx Dermatological Problems: Yes Hx Cellulitis: Yes - MUSCULOSKELETAL/RHEUMATOLOGICAL Hx Falls: No - GASTROINTESTINAL Hx Gastrointestinal Disorders: Yes Hx Diarrhea: Yes - GENITOURINARY/GYNECOLOGICAL Hx Genitourinary Disorders: No - PSYCHIATRIC Hx Psychophysiologic Disorder: No Hx Emotional Abuse: No Hx Physical Abuse: No Hx Substance Use: No - SURGICAL HISTORY Hx Cardiac Catheterization: Yes Other/Comment: 06/26 DEBRIDEMENT FOOT ULCER - ANESTHESIA Hx Anesthesia: Yes Hx Anesthesia Reactions: No Hx Malignant Hyperthermia: No Meds Allergies/Adverse Reactions: Allergies Allergy/AdvReac Type Severity Reaction Status Date / Time No Known Allergies Allergy Verified 03/30/18 13:19 - Medications Medications: Current Medications Atorvastatin Calcium (Lipitor) 20 mg PO DAILY [facility] Famotidine (Pepcid) 20 mg PO BID [facility] Gabapentin (Neurontin) 300 mg PO DAILY [facility] PRN Reason: Protocol Hydrochlorothiazide (Microzide) 12.5 mg PO DAILY [facility] Meropenem (Merrem Iv 1 Gm Premix) 50 mls @ 100 mls/hr IVPB Q12 [facility] PRN Reason: Protocol Last Admin: 03/30/18 13:12 Dose: 100 mls/hr Sodium Chloride (Sodium Chloride 0.45%) 1,000 mls @ 100 mls/hr IV .Q10H [facility] Insulin Detemir (Levemir) 50 unit SC HS [facility] Insulin Human Lispro (Humalog Low) 0 units SC ACHS [facility] PRN Reason: Protocol Insulin Human Lispro (Humalog) 20 units SC AC [facility] Ketorolac Tromethamine (Toradol) 30 mg IVP Q6H PRN PRN Reason: Pain, moderate (4-7) Last Admin: 03/30/18 13:56 Dose: 30 mg Lisinopril (Zestril) 20 mg PO DAILY [facility] Metoprolol Tartrate (Lopressor) 25 mg PO DAILY [facility] Physical Exam - Constitutional Appears: Well, Non-toxic, No Acute Distress - Extremities Exam Additional comments: Right lower extremity focused examination: Vasc: DP/PT pulses palpable 1/4. Temperature gradient warm to warm. Diffuse non pitting edema, mild, noted to amputation stump. Derm: Multiple open ulcerations noted to transmetatarsal amputation stump. Distal most ulceration stable with fibrotic wound base. Ulcerations noted to plantar midfoot and heel exhibit purulent drainage and significant malodor, with fluctuance noted to skin lying between ulcerations on plantar medial midfoot and heel. Midfoot and heel ulcerations connect to form sinus tract. Neuro: Protective sensation grossly diminished Ortho: Mild tenderness noted to palpation of midfoot and heel ulcerations. - Neurological Exam Neurological exam: Alert, Oriented x3 - Psychiatric Exam Psychiatric exam: Normal Affect, Normal Mood Results - Vital Signs Recent Vital Signs: Last Vital Signs Temp 97.9 F 03/30/18 08:50 Pulse 75 03/30/18 11:52 Resp 18 03/30/18 11:52 BP 138/79 03/30/18 11:52 Pulse Ox 98 03/30/18 11:52 - Labs Result Diagrams: 03/30/18 09:45 03/30/18 09:45 Labs: Laboratory Results - last 24 hr 03/30/18 13:22 Urine Color Yellow Urine Appearance Sl cloudy Urine pH 6.0 Ur Specific [place] 1.025 Urine Protein 100 H Urine Glucose (UA) >=1000 Urine Ketones Negative Urine Blood Moderate H Urine Nitrate Negative Urine Bilirubin Negative Urine Urobilinogen 0.2 Ur Leukocyte Esterase Negative Urine RBC 1 - 3 Urine WBC 2 - 5 Assessment & Plan - Assessment and Plan (Free Text) Assessment: 53 y/o male with right foot infected transmetatarsal amputation stump secondary to diabetes Plan Pt seen and evaluated with attending Dr. Subramanian Labs and vitals reviewed- afebrile, WBC 16.9 Continue IV abx - Meropenem Wound cleansed with saline and dressed with Adaptic, Maxorb, ABD, DSD Pt agreeable to right limb amputation at this time, understands that keeping the leg would lead to greater systemic risks Recommend vascular surgery consult at this time to discuss surgical intervention Will continue to perform local wound care and follow patient while in house <Erasto Subramanian - Last Filed: 03/30/18 16:03> Meds - Medications Medications: Current Medications Atorvastatin Calcium (Lipitor) 20 mg PO DAILY [facility] Famotidine (Pepcid) 20 mg PO BID [facility] Gabapentin (Neurontin) 300 mg PO DAILY [facility] PRN Reason: Protocol Hydrochlorothiazide (Microzide) 12.5 mg PO DAILY [facility] Meropenem (Merrem Iv 1 Gm Premix) 50 mls @ 100 mls/hr IVPB Q12 [facility] PRN Reason: Protocol Last Admin: 03/30/18 13:12 Dose: 100 mls/hr Sodium Chloride (Sodium Chloride 0.45%) 1,000 mls @ 100 mls/hr IV .Q10H [facility] Insulin Detemir (Levemir) 50 unit SC HS [facility] Insulin Human Lispro (Humalog Low) 0 units SC ACHS [facility] PRN Reason: Protocol Insulin Human Lispro (Humalog) 20 units SC AC [facility] Ketorolac Tromethamine (Toradol) 30 mg IVP Q6H PRN PRN Reason: Pain, moderate (4-7) Last Admin: 03/30/18 13:56 Dose: 30 mg Lisinopril (Zestril) 20 mg PO DAILY [facility] Metoprolol Tartrate (Lopressor) 25 mg PO DAILY [facility] Results - Vital Signs Recent Vital Signs: Last Vital Signs Temp 97.9 F 03/30/18 08:50 Pulse 75 03/30/18 11:52 Resp 18 03/30/18 11:52 BP 138/79 03/30/18 11:52 Pulse Ox 98 03/30/18 11:52 - Labs Result Diagrams: 03/30/18 09:45 03/30/18 09:45 Labs: Laboratory Results - last 24 hr 03/30/18 03/30/18 13:22 15:42 POC Glucose (mg/dL) 319 H Urine Color Yellow Urine Appearance Sl cloudy Urine pH 6.0 Ur Specific [place] 1.025 Urine Protein 100 H Urine Glucose (UA) >=1000 Urine Ketones Negative Urine Blood Moderate H Urine Nitrate Negative Urine Bilirubin Negative Urine Urobilinogen 0.2 Ur Leukocyte Esterase Negative Urine RBC 1 - 3 Urine WBC 2 - 5 Attending/Attestation - Attestation I have personally seen and examined this patient.: Yes I have fully participated in the care of the patient.: Yes I have reviewed all pertinent clinical information: Yes
[2018-03-30] MEDS ORDERED: Morphine 2 mg/ml ISec IVP PRN (16:14)
[2018-03-30] MEDS ORDERED: Insulin Reg-HIGH-Coverage SC SCH (16:30)
[2018-03-30] MEDS: Morphine 4 mg/ml ISec IVP PRN ×3 (17:35→23:35)
[2018-03-30] MEDS: Insulin Lispro 1 UNITS/0.01 ML SC SCH (17:36)
[2018-03-30] MEDS: Insulin Lispro (humaLOG) LOW Coverage SC SCH ×2 (17:36→22:16)
[2018-03-30] MEDS ORDERED: Pneumococcal 23-Valent Vaccine IM ONE (17:50)
--- NOTE | 2018-03-30 18:40 | CARD ---
APPROVED REPORT EKG Measurement Heart [id number] <Conclusion> Normal sinus rhythm Normal ECG
--- NOTE | 2018-03-30 19:31 | CON ---
DATE: ENDOCRINOLOGY CONSULT LOCATION: Room 375. HISTORY OF PRESENT ILLNESS: This is a 53-year-old male with known history of type 2 insulin-requiring diabetes, presenting here with right foot cellulitis and severe underlying peripheral arterial vasculopathy and is now being referred for diabetic evaluation and management. PAST MEDICAL HISTORY: As mentioned above, history of type 2 insulin-requiring diabetes, currently on a premixed insulin regimen using Humalog 75/25, taken as 60 units in the morning and Basaglar taken as 50 units at bedtime as noted. History of hypertension and dyslipidemia. History of diabetic retinopathy with severe underlying polyneuropathy. He also has significant peripheral arterial disease and vasculopathy with previous amputations in the left foot and transmetatarsal amputation in the right foot as noted. History of diabetic nephropathy also as noted. FAMILY HISTORY: Positive for diabetes and hypertension. SOCIAL HISTORY: The patient is a former smoker as noted. He has a supportive family otherwise. No other known substance abuse. REVIEW OF SYSTEMS: As mentioned above. Admits to generalized body weakness with easy fatigability and tiredness and suboptimal energy level. He also admits to dizziness and lightheadedness, worse on the day of admission, moreover admits to bifrontal headaches and visual blurring, again worse in the last month or so prior to admission. No chest pains or palpitations or PNDs. His oral intake has been variable with nausea, dyspepsia, and vague upper abdominal pains. Also admits to marked polyuria, nocturia, and polydipsia with habitual constipation. Moreover, admits to lower extremity painful paresthesias, especially nocturnally. PHYSICAL EXAMINATION: GENERAL: He is an obese male, in no apparent distress. VITAL SIGNS: Blood pressure of 150/90, pulse of 100 beats per minute and regular, temperature 98, respirations 20. His height is 6 feet 2 inches, weight is 305 pounds. HEENT: Head: Normocephalic. Eyes: Anicteric with pink conjunctivae. Funduscopy is not possible at this time. Ears, nose and throat, otherwise normal. NECK: Supple. Thyroid gland is normal in size. No carotid bruits or any cervical adenopathy. CARDIOPULMONARY: Adynamic precordium. S1, S2 is rapid and regular. LUNGS: Short scattered rhonchi. ABDOMEN: Obese, soft with positive bowel sounds. EXTREMITIES: No peripheral edema. Pulses are diminished peripherally. His toe amputation is in the left foot and the right foot also has a transmetatarsal amputation site with erythema and edema at the dorsum of the right foot as noted and neuropathic ulcerations in the right heel area. LABORATORY DATA: His chemistry shows a BUN of 21, sodium 134, potassium 4.8, chloride 99, CO2 of 24, glucose 519, and creatinine 1.4. He has initial glucose was 446. ASSESSMENT: This is a 53-year-old male with uncontrolled and decompensated type 2 insulin-requiring diabetes with marked hyperglycemic accelerations clearly related to a subtherapeutic insulin regimen with underlying morbid obesity contributing to the increased insulin resistance thereof and further impaired glucose tolerance. He also has diabetic microvascular complications of retinopathy, polyneuropathy, and early nephropathy with diabetic macrovascular complications of peripheral arterial disease and vasculopathy as noted. PLAN OF MANAGEMENT: As discussed with the patient's staff, we will modify his current insulin regimen to a more physiologic basal and bolus insulin drug combination as ordered. We will add Humalog given as 20 units subcu t.i.d. before meals to start at dinnertime today as ordered. We will also modify the coverage scale to obviate hypoglycemia and detailed orders have been given. We will add basal insulin given as Levemir at 50 units subcu at bedtime daily to start tonight. We will titrate incrementally as indicated to optimize metabolic control. We will obtain serial chemistries and supplement accordingly as needed. We will obtain a hemoglobin A1c to confirm his prior glycemic control and baseline thyroid function studies and lipid panel will be ordered. We will initiate diabetic education and dietary instructions and reinforce the imperative need for tighter metabolic control to forestall future microvascular complications of diabetes. We will follow this. Nadja Garcia MD
[2018-03-30] MEDS ORDERED: Insulin Detemir 100 units/ml Vial (Levemir) SC SCH (22:00)
[2018-03-30] MEDS: Sodium Chloride 0.45% 1,000 ML IV SCH (22:21)
--- NOTE | 2018-03-30 22:50 | CP.PCM.CON ---
History of Present Illness - History of Present Illness History of Present Illness: Vascular surgery consult for Dr. Schumacher Consulted for: chronic right foot wounds Patient is a 53 year old male with PMH of PVD, DMII, CAD s/p stents, neuropathy , and chronic BL foot wounds, and PSH of BL angioplasty's of the lower legs and right TMA. Patient was referred to the hospital by Dr. East, his podiatries, after his visit at her clinic for wound care. Patient states that he has had the wounds on this right foot for years and that, though the wound and the site of his prior TMA has been improving, his wound on his heel has been worsening despite numerous procedures and wound care modalities, so that the bone is now exposed and he is on intermodal customer service antibiotics for osteomyelitis. Patient reports he has chronic neuropathy of both feet, pain and purulent foul smelling drainage from the wounds of his right foot but denies any fevers, chills, focal weakness, chest pain, nausea, vomiting, diarrhea, or any other symptoms. Patient expresses desire to have an amputation so that he can have a prosthesis and regain quality of life. PMH: PVD, IDDMII, CAD, neuropathy, chronic BL foot wounds, HTN, HLD PSH: back surgery, R TMA, BL angioplasty of the LE's, coronary stents ALL: NKDA Social: Denies any history of smoking, ETOH, or illicit substances Review of Systems - Review of Systems All systems: reviewed and no additional remarkable complaints except (as per HPI ) Past Patient History - Infectious Disease Hx of Infectious Diseases: None - Past Medical History & Family History Past Medical History?: Yes Past Family History: Reviewed and not pertinent - Past Social History Smoking Status: Never Smoked - CARDIAC Hx Cardiac Disorders: Yes ([place],CAD,) Hx Hypertension: Yes - PULMONARY Hx Respiratory Disorders: No - NEUROLOGICAL Hx Neurological Disorder: Yes Other/Comment: NEUROPATHY - HEENT Hx HEENT Problems: No - RENAL Hx Chronic Kidney Disease: No - ENDOCRINE/METABOLIC Hx Endocrine Disorders: Yes Hx Diabetes Mellitus Type 1: Yes Hx Diabetes Mellitus Type 2: Yes - HEMATOLOGICAL/ONCOLOGICAL Hx Blood Disorders: No - INTEGUMENTARY Hx Dermatological Problems: Yes (DAIBETIC FOOT ULCER TO RIGHT FOOT.HAD MULTIPL RIGHT FOOT DIABETIC ULCERATIO) Other/Comment: LEFT 1STAND 2ND TOE AMPUTATED. HEALED WELL,DRY.SCARRING. RIGHT NON HEALING HEEL DM FOOT ULCER.HAD HYPERBARIC TX. - MUSCULOSKELETAL/RHEUMATOLOGICAL Hx Musculoskeletal Disorders: No Hx Falls: No Hx Unsteady Gait: Yes - GASTROINTESTINAL Hx Gastrointestinal Disorders: Yes (C DIF COLITIS) - GENITOURINARY/GYNECOLOGICAL Hx Genitourinary Disorders: No - PSYCHIATRIC Hx Psychophysiologic Disorder: No Hx Emotional Abuse: No Hx Physical Abuse: No Hx Substance Use: No - SURGICAL HISTORY Hx Surgeries: Yes Hx Cardiac Catheterization: Yes Other/Comment: 06/26 DEBRIDEMENT FOOT ULCER - ANESTHESIA Hx Anesthesia: Yes Hx Anesthesia Reactions: No Hx Malignant Hyperthermia: No Meds Allergies/Adverse Reactions: Allergies Allergy/AdvReac Type Severity Reaction Status Date / Time No Known Allergies Allergy Verified 03/30/18 13:19 - Medications Medications: Current Medications Atorvastatin Calcium (Lipitor) 20 mg PO DAILY [facility] Famotidine (Pepcid) 20 mg PO BID [facility] Last Admin: 03/30/18 17:36 Dose: 20 mg Gabapentin (Neurontin) 300 mg PO DAILY [facility] PRN Reason: Protocol Hydrochlorothiazide (Microzide) 12.5 mg PO DAILY [facility] Meropenem (Merrem Iv 1 Gm Premix) 50 mls @ 100 mls/hr IVPB Q12 [facility] PRN Reason: Protocol Last Admin: 03/30/18 21:15 Dose: 100 mls/hr Sodium Chloride (Sodium Chloride 0.45%) 1,000 mls @ 100 mls/hr IV .Q10H [facility] Last Admin: 03/30/18 22:21 Dose: 100 mls/hr Insulin Detemir (Levemir) 50 unit SC HS [facility] Last Admin: 03/30/18 22:17 Dose: 50 unit Insulin Human Lispro (Humalog Low) 0 units SC ACHS [facility] PRN Reason: Protocol Last Admin: 03/30/18 22:16 Dose: Not Given Insulin Human Lispro (Humalog) 20 units SC AC [facility] Last Admin: 03/30/18 17:36 Dose: 20 units Ketorolac Tromethamine (Toradol) 30 mg IVP Q6H PRN PRN Reason: Pain, moderate (4-7) Last Admin: 03/30/18 13:56 Dose: 30 mg Lisinopril (Zestril) 20 mg PO DAILY [facility] Metoprolol Tartrate (Lopressor) 25 mg PO DAILY [facility] Morphine Sulfate (Morphine) 2 mg IVP Q3 PRN PRN Reason: PAIN, SEVERE [8-10] Last Admin: 03/30/18 20:29 Dose: 2 mg Physical Exam - Constitutional Appears: Well, Non-toxic, No Acute Distress - Head Exam Head Exam: ATRAUMATIC, NORMOCEPHALIC - Eye Exam Eye Exam: Normal appearance. absent: Conjunctival injection, Scleral icterus - ENT Exam ENT Exam: Mucous Membranes Moist, Normal Oropharynx - Respiratory Exam Respiratory Exam: NORMAL BREATHING PATTERN. absent: Accessory Muscle Use, Respiratory Distress - Cardiovascular Exam Cardiovascular Exam: RRR - GI/Abdominal Exam GI & Abdominal Exam: Soft. absent: Distended, Tenderness - Extremities Exam Additional comments: BL LE warm, normal color. 1+ popliteal artery, 2+ left popliteal artery, strong biphasic signals on doppler of R DP and PT, 1+ DP on the left with biphasic TP on doppler. right foot with small ulcers on the former TMA site and lateral edge of the foot , and a large ulcer approximately 6cm in diameter on the heel. Large bullae on the medial foot with incision site present--no drainage. No foul smelling drainage was expressible from the wounds. - Neurological Exam Neurological exam: Alert, Oriented x3 - Psychiatric Exam Psychiatric exam: Normal Affect, Normal Mood - Skin Skin Exam: Dry, Intact, Normal Color, Warm Additional comments: except as noted above Results - Vital Signs Recent Vital Signs: Last Vital Signs Temp 97.2 F L 03/30/18 17:12 Pulse 75 03/30/18 17:12 Resp 18 03/30/18 17:12 BP 141/84 03/30/18 17:12 Pulse Ox 96 03/30/18 16:50 - Labs Result Diagrams: 03/30/18 09:45 03/30/18 09:45 Labs: Laboratory Results - last 24 hr 03/30/18 03/30/18 03/30/18 13:22 15:42 21:14 POC Glucose (mg/dL) 319 H 236 H Urine Color Yellow Urine Appearance Sl cloudy Urine pH 6.0 Ur Specific [place] 1.025 Urine Protein 100 H Urine Glucose (UA) >=1000 Urine Ketones Negative Urine Blood Moderate H Urine Nitrate Negative Urine Bilirubin Negative Urine Urobilinogen 0.2 Ur Leukocyte Esterase Negative Urine RBC 1 - 3 Urine WBC 2 - 5 Assessment & Plan - Assessment and Plan (Free Text) Assessment: 53M with history of PVD, currently chronic right foot ulcers with osteomyelitis Plan: Patient could benefit from a right lower extremity amputation--BKA vs AKA CTA with ileofemoral runoff to further evaluate the peripheral vasculature--SHIRIN' s 02/2018 were inconclusive d/t calcifications Local wound care per podiatry Patient will need strict control of diabetes--glucose 519 on admission--Follow up endocrinology recs Patient will need cardiac clearance prior to OR for history of stents Hold plavix in anticipation of OR. May switch to heparin if anticoagulation is necessary Continue IV antibiotics, PRN pain medication Will discuss with Dr. Schumacher, further recs per her Norah Santana, PGY2
--- NOTE | 2018-03-30 22:57 | HP ---
DATE OF EXAM: HISTORY OF PRESENT ILLNESS: I saw him in the emergency room. He is comfortable, resting in bed. He has got a right foot, which is diabetic and is bandaged. He needs to go for more surgery with Dr. East, I believe with some amputation. He is comfortable with little bit of pain. He is a 53-year-old male with history of diabetes who presents with a longstanding history of right foot issues. Now, he has got an ulcer that is nonhealing or need to have surgery. He has got hypertension, neuropathy, diabetes. He has cellulitis. He has had diarrhea. He has had debridement of the foot ulcer. SOCIAL HISTORY: Before, he is a former smoker. No alcohol. No drugs. ALLERGIES: NO KNOWN DRUG ALLERGIES. MEDICATIONS: He is on aspirin, Lipitor, Plavix, Vasotec, Pepcid, gabapentin, Microzide, NovoLog insulin, KwikPen insulin, Lopressor, oxycodone and vancomycin p.o. for possible C. diff. I called in Infectious Disease, Podiatry and Endocrinology for his elevated blood sugars of 500. REVIEW OF SYSTEMS: He is comfortable, resting in bed, some pain was there on the right foot. No vision changes. No hearing changes. No sore throat. No chest pain. No palpitations. No shortness of breath or cough. No abdominal pain, nausea, vomiting, constipation, diarrhea. The right foot has a diabetic foot ulcer and the left ankle got skin lesions. PHYSICAL EXAMINATION: GENERAL: He is alert and oriented x3, for the most part he is comfortable. VITAL SIGNS: He has a 97.9 temperature, 73 pulse, 18 respiratory rate, 137/86 blood pressure, 100% O2 sat. He is well-appearing, nontoxic, comfortable, mild pain. Alert and oriented x3. HEENT: Head: Atraumatic, normocephalic. Extraocular muscles intact. Pupil equal and reactive to light and accommodation. Throat is moist. NECK: Supple. HEART: Regular rate. Normal S1, S2. No murmurs. LUNGS: Decreased breath sounds, but clear to auscultation bilaterally. ABDOMEN: Soft, nontender. Positive bowel sounds. No guarding, no rebound, no CVA tenderness. EXTREMITIES: The right foot is bandaged. Left foot is bandaged. He has got multiple digits removed from the right toe. Left foot with ulcers. NEUROLOGIC: GCS of 15. Cranial nerves II through XII grossly intact. Speech is normal. Alert and oriented x3. He had multiple tests. SKIN: Warm and dry, otherwise. LABORATORY DATA: He has a 16.9 white count, 7.9 hemoglobin, he might be transfused, hematocrit 25.7, platelets of 423. INR is 1.28. Sodium is 134, potassium is 4.8, BUN 21, creatinine 1.4. GFR is 53, sugar is 519, calcium is 8.7, total bili is 0.2, AST is 46, ALT is 59, alkaline phosphatase 124, total protein 7.8. Chest x-ray was clear. We will continue with aggressive treatment and care for his right foot diabetic ulcer. Ronaldo Gonzalez DO MTDDelia
[2018-03-31] MEDS: Morphine 4 mg/ml ISec IVP PRN ×4 (02:41→22:50)
[2018-03-31 06:42] LABS: HEMOGLOBIN 7.9 g/dL (14.0-18.0); MEAN CELL VOLUME 70.7 fl (80.0-105.0); MEAN CORPUSCULAR HEMOGLOBIN 21.5 pg (25.0-35.0); MEAN CORPUSCULAR HGB CONC 30.4 g/dl (31.0-37.0); MEAN PLATELET VOLUME 9.2 fl (7.0-11.0); RBC 3.68 10^6/uL (3.5-6.1); RED CELL DISTRIBUTION WIDTH 18.2 % (11.5-14.5); WHITE BLOOD COUNT 11.9 10^3/ul (4.5-11.0)
[2018-03-31 07:05] LABS: ALB/GLOB RATIO 0.9 (1.1-1.8); ALBUMIN 3.5 g/dL (3.0-4.8); ALT/SGPT 51 U/L (7-56); AST/SGOT 38 U/L (17-59); BLOOD UREA NITROGEN 18 mg/dL (7-21); GFR AFRICAN-AMERICAN > 60; GFR NON-AFRICAN AMERICAN > 60
[2018-03-31] MEDS: Insulin Lispro (humaLOG) LOW Coverage SC SCH ×4 (08:20→22:29)
[2018-03-31] MEDS: Insulin Lispro 1 UNITS/0.01 ML SC SCH ×3 (08:20→16:49)
[2018-03-31] MEDS ORDERED: Insulin Lispro (humaLOG) MIX 75/25(10 ml) SC SCH (10:00)
[2018-03-31] MEDS: Meropenem IV 1 gm in NS 50 ML IVPB SCH ×2 (10:02→22:02)
--- NOTE | 2018-03-31 12:15 | CP.PCM.PN ---
Subjective - Date & Time of Evaluation Date of Evaluation: 03/31/18 Time of Evaluation: 12:13 - Subjective Subjective: Surgery Progress Note: Patient seen and assessed at bedside. No acute events overnight. Denies fevers, chills, headache, chest pain, SOB, abdominal pain, N/V/D/C or any changes in urine output. Objective - Vital Signs/Intake and Output Vital Signs (last 24 hours): Temp Pulse Resp BP Pulse Ox 99.1 F 73 18 132/67 99 03/31/18 11:23 03/31/18 11:23 03/31/18 11:23 03/31/18 11:23 03/31/18 08:28 Intake and Output: 03/31/18 03/31/18 06:59 18:59 Intake Total 2220 0 Output Total 400 Balance 1820 0 - Medications Medications: Current Medications Atorvastatin Calcium (Lipitor) 20 mg PO DAILY [facility] Last Admin: 03/31/18 09:00 Dose: 20 mg Famotidine (Pepcid) 20 mg PO BID [facility] Last Admin: 03/31/18 09:01 Dose: 20 mg Gabapentin (Neurontin) 300 mg PO DAILY [facility] PRN Reason: Protocol Last Admin: 03/31/18 09:01 Dose: 300 mg Hydrochlorothiazide (Microzide) 12.5 mg PO DAILY [facility] Last Admin: 03/31/18 09:01 Dose: 12.5 mg Meropenem (Merrem Iv 1 Gm Premix) 50 mls @ 100 mls/hr IVPB Q12 [facility] PRN Reason: Protocol Last Admin: 03/30/18 21:15 Dose: 100 mls/hr Sodium Chloride (Sodium Chloride 0.45%) 1,000 mls @ 100 mls/hr IV .Q10H [facility] Last Admin: 03/30/18 22:21 Dose: 100 mls/hr Insulin Detemir (Levemir) 50 unit SC HS [facility] Last Admin: 03/30/18 22:17 Dose: 50 unit Insulin Human Lispro (Humalog Low) 0 units SC ACHS [facility] PRN Reason: Protocol Last Admin: 03/31/18 12:03 Dose: Not Given Insulin Human Lispro (Humalog) 20 units SC AC [facility] Last Admin: 03/31/18 12:02 Dose: 20 units Ketorolac Tromethamine (Toradol) 30 mg IVP Q6H PRN PRN Reason: Pain, moderate (4-7) Last Admin: 03/30/18 13:56 Dose: 30 mg Lisinopril (Zestril) 20 mg PO DAILY [facility] Last Admin: 03/31/18 09:01 Dose: 20 mg Metoprolol Tartrate (Lopressor) 25 mg PO DAILY [facility] Last Admin: 03/31/18 09:00 Dose: 25 mg Morphine Sulfate (Morphine) 2 mg IVP Q3 PRN PRN Reason: PAIN, SEVERE [8-10] - Labs Labs: 03/31/18 06:15 03/31/18 06:15 PT 14.8 SECONDS (9.4-12.5) H 03/30/18 09:45 INR 1.28 (0.93-1.08) H 03/30/18 09:45 APTT 30.4 Seconds (25.1-36.5) 03/30/18 09:45 - Constitutional Appears: Non-toxic, No Acute Distress - Head Exam Head Exam: ATRAUMATIC, NORMOCEPHALIC - Eye Exam Eye Exam: EOMI, Normal appearance - Neck Exam Neck Exam: Full ROM - Respiratory Exam Respiratory Exam: NORMAL BREATHING PATTERN. absent: Accessory Muscle Use, Respiratory Distress - GI/Abdominal Exam GI & Abdominal Exam: Soft, Normal Bowel Sounds. absent: Distended, Firm, Guarding, Rigid, Tenderness, Rebound - Extremities Exam Additional comments: B/L LE warm with normal color; RLE with ulcers on the former TMA site, lateral edge of the foot, and a large ulcer approximately 6cm in diameter on the heel; Bullae on the medial right foot with incision site present and with no discharge or foul smelling drainage expressible from the wounds - Neurological Exam Neurological Exam: Alert, Awake, Oriented x3 - Psychiatric Exam Psychiatric exam: Normal Affect, Normal Mood - Skin Skin Exam: Warm Assessment and Plan - Assessment and Plan (Free Text) Assessment: 53 year old male with a past medical history significant for PVD and currently with chronic right foot ulcers with associated osteomyelitis Plan: -Discussed surgical options with patient, including BKA, with further recommendations per Dr. Schumacher -Continue local wound care per podiatry -Continue glycemic control per endocrinology -Cardiac optimization for OR pending; Will follow up cardiology consultation -Hold plavix in anticipation of OR. May switch to heparin if anticoagulation is necessary -Continue IV antibiotics and PRN pain medication -Will discuss with attending Dr. Endy Kebede PGY1
[2018-03-31] MEDS: Morphine 2 mg/2 mL syringe IVP PRN ×2 (13:43→16:50)
--- NOTE | 2018-03-31 13:57 | PN ---
DATE: 03/31/2018 SUBJECTIVE: The history and physical and consultation note by the resident was reviewed and I agreed with the findings. 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 He had an OH 7 years ago and [place] coronary stent [place]. Currently, he denied any symptoms. His right foot has been followed for about a year at [facility]. He had transmetatarsal amputation done in [place] and he had developed a heel ulcer down to calcaneus. Despite multiple course of antibiotic, he continued to have osteomyelitis and cellulitis and currently, he has a heel ulcer with exposed calcaneus. 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 In view of his cardiac history, Cardiology is consulted who felt that we can proceed with the procedure. The cardiac workup can be performed later. Currently, the patient states that he has no more diarrhea and his major problem is right foot pain. He is scheduled for right below-knee amputation tomorrow. Shawanda Schumacher MD
--- NOTE | 2018-03-31 14:22 | PN ---
DATE: 03/31/2018 SUBJECTIVE: He is resting comfortably, sitting up in bed, eating his breakfast. He has got a right TMA with some toes removed and is bandaged. He is on insulin, Levemir, Lipitor, Lopressor, Merrem IV, Microzide, morphine, Neurontin, Pepcid, IV fluids, Toradol and Zestril. OBJECTIVE: VITAL SIGNS: He has a 98.2 temperature, 99 pulse, 164/81 blood pressure, 20 respiratory rate, 99% O2 saturation on room air. GENERAL: He is comfortable in bed. He is waiting for a plan to be made with Dr. East. His white count did come down to 11.9 with the antibiotics for his ulcer and cellulitis. DATA: He has a 7.9 hemoglobin, 26 hematocrit with 440 platelets. He has 137 sodium, potassium 4.5, BUN 18, creatinine 1.2. GFR is greater than 60. Sugars are now down to 257, it was as high as 519 when he came in. Calcium is 9, total bili is 0.2, AST is 38, ALT is 51, alkaline phosphatase 98, total protein 7.6. Urine had moderate blood. He was seen by Podiatry, Endocrinology and infectious disease. He had cellulitis and ulcers, PVD with chronic osteomyelitis, possibility of an amputation, BKA versus AKA. We will get Cardiology in for cardiology clearance for possible surgery. Check his labs tomorrow. I am not transfusing 1 unit of packed red blood cells today because his hemoglobin is below eight and is going to have surgery. Ronaldo Gonzalez DO
--- NOTE | 2018-03-31 15:01 | CP.PCM.PN ---
<Marita Aguirre - Last Filed: 03/31/18 14:56> Subjective - Date & Time of Evaluation Date of Evaluation: 03/31/18 Time of Evaluation: 14:56 - Subjective Subjective: 53 y/o male known to Dr. East seen at bedside this afternoon for right non healing TMA stump. Pt is agreeable to amputation and will be going to the OR tomorrow. Pt has no further questions and is understanding that this is the best treatment plan at this time. Has no pain in the R limb at present. Denies N /V/CP/SOB. Objective - Vital Signs/Intake and Output Vital Signs (last 24 hours): Temp Pulse Resp BP Pulse Ox 98.4 F 87 18 160/78 H 99 03/31/18 13:33 03/31/18 13:33 03/31/18 13:33 03/31/18 13:33 03/31/18 08:28 Intake and Output: 03/31/18 03/31/18 06:59 18:59 Intake Total 2220 325 Output Total 400 Balance 1820 325 - Medications Medications: Current Medications Atorvastatin Calcium (Lipitor) 20 mg PO DAILY [facility] Last Admin: 03/31/18 09:00 Dose: 20 mg Famotidine (Pepcid) 20 mg PO BID [facility] Last Admin: 03/31/18 09:01 Dose: 20 mg Gabapentin (Neurontin) 300 mg PO DAILY [facility] PRN Reason: Protocol Last Admin: 03/31/18 09:01 Dose: 300 mg Hydrochlorothiazide (Microzide) 12.5 mg PO DAILY [facility] Last Admin: 03/31/18 09:01 Dose: 12.5 mg Meropenem (Merrem Iv 1 Gm Premix) 50 mls @ 100 mls/hr IVPB Q12 [facility] PRN Reason: Protocol Last Admin: 03/30/18 21:15 Dose: 100 mls/hr Sodium Chloride (Sodium Chloride 0.45%) 1,000 mls @ 100 mls/hr IV .Q10H [facility] Last Admin: 03/30/18 22:21 Dose: 100 mls/hr Insulin Detemir (Levemir) 50 unit SC HS [facility] Last Admin: 03/30/18 22:17 Dose: 50 unit Insulin Human Lispro (Humalog Low) 0 units SC ACHS [facility] PRN Reason: Protocol Last Admin: 03/31/18 12:03 Dose: Not Given Insulin Human Lispro (Humalog) 20 units SC AC [facility] Last Admin: 03/31/18 12:02 Dose: 20 units Ketorolac Tromethamine (Toradol) 30 mg IVP Q6H PRN PRN Reason: Pain, moderate (4-7) Last Admin: 03/30/18 13:56 Dose: 30 mg Lisinopril (Zestril) 20 mg PO DAILY [facility] Last Admin: 03/31/18 09:01 Dose: 20 mg Metoprolol Tartrate (Lopressor) 25 mg PO DAILY [facility] Last Admin: 03/31/18 09:00 Dose: 25 mg Morphine Sulfate (Morphine) 2 mg IVP Q3 PRN PRN Reason: PAIN, SEVERE [8-10] Last Admin: 03/31/18 13:43 Dose: 2 mg - Labs Labs: 03/31/18 06:15 03/31/18 06:15 PT 14.8 SECONDS (9.4-12.5) H 03/30/18 09:45 INR 1.28 (0.93-1.08) H 03/30/18 09:45 APTT 30.4 Seconds (25.1-36.5) 03/30/18 09:45 - Constitutional Appears: Well, Non-toxic, No Acute Distress - Extremities Exam Additional comments: Right lower extremity focused examination: Dressing clean/dry/intact to R foot with no strikethrough - Neurological Exam Neurological Exam: Alert, Awake, Oriented x3 - Psychiatric Exam Psychiatric exam: Normal Affect, Normal Mood Assessment and Plan - Assessment and Plan (Free Text) Assessment: 53 y/o male with right foot infected transmetatarsal amputation stump secondary to diabetes Plan Pt seen and evaluated with attending Dr. East Labs and vitals reviewed- afebrile, WBC 11.9 Continue IV abx - Meropenem Wound dressing left in place, clean/dry/intact to R foot Pt agreeable to right limb amputation at this time Vascular surgery Dr. Schumacher on board, to take patient to OR tomorrow for right BKA Will continue to perform local wound care and follow patient while in house <Claudette East - Last Filed: 04/04/18 17:44> Objective - Vital Signs/Intake and Output Vital Signs (last 24 hours): Temp Pulse Resp BP Pulse Ox 98.1 F 70 20 170/80 H 98 04/04/18 08:29 04/04/18 10:21 04/04/18 08:29 04/04/18 10:21 04/04/18 08:29 Intake and Output: 04/04/18 04/04/18 06:59 18:59 Intake Total 720 Output Total 1450 600 Balance -1450 120 - Medications Medications: Current Medications Amlodipine Besylate (Norvasc) 10 mg PO DAILY [facility] Atorvastatin Calcium (Lipitor) 20 mg PO DAILY [facility] Last Admin: 04/04/18 09:34 Dose: 20 mg Ciprofloxacin (Cipro) 250 mg PO Q12 [facility] PRN Reason: Protocol Stop: 04/07/18 11:35 Last Admin: 04/04/18 09:34 Dose: 250 mg Docusate Sodium (Colace) 100 mg PO BID [facility] Last Admin: 04/04/18 09:33 Dose: 100 mg Enoxaparin Sodium (Lovenox) 40 mg SC DAILY [facility] PRN Reason: Protocol Last Admin: 04/04/18 09:33 Dose: 40 mg Famotidine (Pepcid) 20 mg PO BID [facility] Last Admin: 04/04/18 09:34 Dose: 20 mg Gabapentin (Neurontin) 300 mg PO DAILY [facility] PRN Reason: Protocol Last Admin: 04/04/18 09:33 Dose: 300 mg Hydrochlorothiazide (Hydrodiuril) 25 mg PO DAILY [facility] Last Admin: 04/04/18 10:18 Dose: 25 mg Insulin Detemir (Levemir) 65 unit SC HS [facility] Last Admin: 04/03/18 22:25 Dose: 65 unit Insulin Human Lispro (Humalog Low) 0 units SC ACHS [facility] PRN Reason: Protocol Last Admin: 04/04/18 16:31 Dose: Not Given Insulin Human Lispro (Humalog) 15 units SC AC [facility] Last Admin: 04/04/18 17:23 Dose: 15 units Ketorolac Tromethamine (Toradol) 30 mg IVP Q6H PRN PRN Reason: Pain, moderate (4-7) Last Admin: 03/30/18 13:56 Dose: 30 mg Linezolid (Zyvox) 600 mg PO BID [facility] PRN Reason: Protocol Stop: 04/07/18 18:01 Last Admin: 05/06/18 17:23 Dose: 600 mg Lisinopril (Zestril) 20 mg PO DAILY [facility] Last Admin: 04/03/18 09:03 Dose: 20 mg Metoprolol Tartrate (Lopressor) 25 mg PO DAILY [facility] Last Admin: 04/03/18 09:02 Dose: 25 mg Morphine Sulfate (Morphine) 2 mg IVP Q6H PRN PRN Reason: Pain, severe (8-10) Last Admin: 04/04/18 10:48 Dose: 2 mg Ondansetron HCl (Zofran Inj) 4 mg IVP ONCE PRN PRN Reason: Nausea/Vomiting Oxycodone/Acetaminophen (Percocet 10/325 Mg Tab) 1 tab PO Q4H PRN PRN Reason: Pain, moderate (4-7) Last Admin: 04/04/18 14:45 Dose: 1 tab - Labs Labs: 04/04/18 06:30 04/04/18 06:30 PT 14.8 SECONDS (9.4-12.5) H 03/30/18 09:45 INR 1.28 (0.93-1.08) H 03/30/18 09:45 APTT 30.4 Seconds (25.1-36.5) 03/30/18 09:45 Attending/Attestation - Attestation I have personally seen and examined this patient.: Yes I have fully participated in the care of the patient.: Yes I have reviewed all pertinent clinical information, including history, physical exam and plan: Yes Notes (Text): 04/04/18 17:43 Pt was sent into the hospital by me for amputation of the right lower leg secondary to osteomyelitis of the calcaneous with multiple other foot ulcers abcess and cellulitis; pt having surgery tomorrow with Dr Schumacher I spoke with Dr Schumacher regarding the same
[2018-03-31] MEDS ORDERED: WATER IVPB ONE ×3 (15:30→15:40)
[2018-03-31] MEDS ORDERED: AMIKACIN IVPB ONE ×3 (15:30→15:40)
[2018-03-31] MEDS ORDERED: DEXTROSE 5% IVPB ONE ×3 (15:30→15:40)
--- NOTE | 2018-03-31 15:32 | CP.PCM.CON ---
History of Present Illness - History of Present Illness History of Present Illness: 53 year old male with PMH of DM, HTN, morbid obesity, peripheral vascular disease, history of right foot TMA, history of left foot 1st and 2nd toe amputation has recently been treated for right foot osteomyelitis with multidrug -resistant Pseudomonas with Avycaz IV for 6 weeks. He also underwent local wound care, regular follow up with Podiatry at the wound center and hyperbaric oxygen therapy. He had been doing well after the course of treatment until his last follow up and there was note of pus coming out of his right foot, with subjective fever and chills. He denies animal contacts, no specific trauma to the right foot, no nausea or vomiting, no headache or dizziness, no abdominal pain, no chest pain, no cough or rhinorrhea, no sore throat, no diarrhea, no dysuria. Infectious Diseases consult is requested to further evaluate and manage. Review of Systems - Review of Systems All systems: reviewed and no additional remarkable complaints except (as per HPI ) Past Patient History - Infectious Disease Hx of Infectious Diseases: None - Past Medical History & Family History Past Medical History?: Yes - Past Social History Smoking Status: Former Smoker - CARDIAC Hx Cardiac Disorders: Yes Hx Hypertension: Yes - PULMONARY Hx Respiratory Disorders: No - NEUROLOGICAL Hx Neurological Disorder: Yes Other/Comment: NEUROPATHY - HEENT Hx HEENT Problems: No - RENAL Hx Chronic Kidney Disease: No - ENDOCRINE/METABOLIC Hx Endocrine Disorders: Yes Hx Diabetes Mellitus Type 1: Yes Hx Diabetes Mellitus Type 2: Yes - HEMATOLOGICAL/ONCOLOGICAL Hx Blood Disorders: No - INTEGUMENTARY Hx Dermatological Problems: Yes Hx Cellulitis: Yes - MUSCULOSKELETAL/RHEUMATOLOGICAL Hx Falls: No - GASTROINTESTINAL Hx Gastrointestinal Disorders: Yes Hx Diarrhea: Yes - GENITOURINARY/GYNECOLOGICAL Hx Genitourinary Disorders: No - PSYCHIATRIC Hx Psychophysiologic Disorder: No Hx Emotional Abuse: No Hx Physical Abuse: No Hx Substance Use: No - SURGICAL HISTORY Hx Cardiac Catheterization: Yes Other/Comment: 06/26 [employer]BR[employer]LC[employer] - ANESTHESIA Hx Anesthesia: Yes Hx Anesthesia Reactions: No Hx Malignant Hyperthermia: No Meds Allergies/Adverse Reactions: Allergies Allergy/AdvReac Type Severity Reaction Status Date / Time No Known Allergies Allergy Verified 03/30/18 13:19 - Medications Medications: Current Medications Atorvastatin Calcium (Lipitor) 20 mg PO DAILY [facility] Famotidine (Pepcid) 20 mg PO BID [facility] Gabapentin (Neurontin) 300 mg PO DAILY [facility] PRN Reason: Protocol Hydrochlorothiazide (Microzide) 12.[address] [facility] Vancomycin HCl (Vancomycin 1gm) 1 gm in 250 mls @ 167 mls/hr IVPB STAT STA PRN Reason: Protocol Stop: 03/30/18 12:55 Last Admin: 03/30/18 11:42 Dose: 167 mls/hr Sodium Chloride (Sodium Chloride 0.45%) 1,000 mls @ 30 mls/hr IV .Q24H [facility] Insulin Human Regular (Humulin R High) 0 units SC ACHS [facility] PRN Reason: Protocol Insulin Lispro Protam/Lispro Human (Humalog Mix 75/25) 60 units SC DAILY [facility] Ketorolac Tromethamine (Toradol) 30 mg IVP Q6H PRN PRN Reason: Pain, moderate (4-7) Lisinopril (Zestril) [address] [facility] Metoprolol Tartrate (Lopressor) [address] [facility] Physical Exam - Constitutional Appears: Chronically Ill - Head Exam Head Exam: NORMAL INSPECTION - ENT Exam ENT Exam: Mucous Membranes Moist - Neck Exam Neck exam: Negative for: Meningismus - Respiratory Exam Respiratory Exam: Decreased Breath Sounds - Cardiovascular Exam Cardiovascular Exam: +S1, +S2 - GI/Abdominal Exam GI & Abdominal Exam: Soft. absent: Tenderness - Extremities Exam Additional comments: right foot with dressings in place Results - Vital Signs Recent Vital Signs: Last Vital Signs Temp 97.9 F 03/30/18 08:50 Pulse 75 03/30/18 11:52 Resp 18 03/30/18 11:52 BP 138/79 03/30/18 11:52 Pulse Ox 98 03/30/18 11:52 - Labs Result Diagrams: 03/31/18 06:15 03/31/18 06:15 Assessment & Plan - Assessment and Plan (Free Text) Plan: Assessment Sepsis due to right foot purulent skin and skin structure infection in this patient who has just been treated with 6 weeks of antibiotics for right foot osteomyelitis with multidrug-resistant Pseudomonas S/P TMA and with long history of chronic non-healing wounds on the right foot DM HTN morbid obesity peripheral vascular disease history of right foot TMA history of left foot 1st and 2nd toe amputation Plan follow up blood and wound cx, and we have started Vancomycin, Merrem and a dose of IV Amikacin patient is planned for BKA this week will monitor clinically
--- NOTE | 2018-03-31 17:43 | CARD ---
APPROVED REPORT EXAM: Two-dimensional and M-mode echocardiogram with Doppler and color Doppler. INDICATION Pre-Op Clearance 2D DIMENSIONS Left Atrium (2D)4.7 (1.6-4.0cm)IVSd1.5 (0.7-1.1cm) LVDd5.1 (3.9-5.9cm)PWd1.4 (0.7-1.1cm) LVDs3.7 (2.5-4.0cm)FS (%) 27.3 % LVEF (%)52.9 (>50%) M-Mode DIMENSIONS Aortic Root3.70 (2.2-3.7cm)Aortic Cusp Exc.2.20 (1.5-2.0cm) Aortic Valve AoV Peak Yvnfyamx604.0cm/Jeanette Peak GR.9mmHg Mitral Valve MV E Ardtjjgq95.1cm/sMV A Kzcdntqb93.3cm/sE/A ratio0.9 TDI Lateral E' Peak V9.94cm/sMedial E' Peak V6.63cm/sE/Lateral E'9.1 E/Medial E'13.6 Pulmonary Valve PV Peak Eelsrxwp17.5cm/sPV Peak Grad.3mmHg Tricuspid Valve TR Peak Stsrfnoz271yy/sRAP [id number] Peak Gr.17mmHg [id number] LEFT VENTRICLE The left ventricle is normal size. There is mild concentric left ventricular hypertrophy. The left ventricular function is normal. The left ventricular ejection fraction is within the normal range. There is normal LV segmental wall motion. Transmitral Doppler flow pattern is Grade I-abnormal relaxation pattern. RIGHT VENTRICLE The right ventricle is normal size. There is normal right ventricular wall thickness. The right ventricular systolic function is normal. ATRIA The left atrium is borderline dilated. The right atrium size is normal. AORTIC VALVE The aortic valve is normal in structure. No aortic regurgitation is present. There is no aortic valvular stenosis. MITRAL VALVE The mitral valve is normal in structure. There is no mitral valve regurgitation noted. TRICUSPID VALVE The tricuspid valve is normal in structure. There is no tricuspid valve regurgitation noted. GREAT VESSELS The aortic root is normal in size. The IVC is normal in size and collapses >50% with inspiration. <Conclusion> The left ventricle is normal size. There is mild concentric left ventricular hypertrophy. The left ventricular function is normal. The left ventricular ejection fraction is within the normal range. There is normal LV segmental wall motion. Transmitral Doppler flow pattern is Grade I-abnormal relaxation pattern.
--- NOTE | 2018-03-31 19:43 | CON ---
DATE: 03/31/2018 CARDIOLOGY CONSULTATION HISTORY: The patient is a 53-year-old male who presents with an ischemic lower extremity. The patient's past medical history is notable for severe peripheral vascular disease. He suffers from diabetes mellitus and hypertension. In addition, several years ago, the patient suffered an acute myocardial infarction. On his EKG, it is probably an old inferior wall ME which was treated with a stent. He has had no chest pain, no shortness of breath since. He does use a scooter and during his exertional period, there is no angina, no shortness of breath. SOCIAL HISTORY: The patient does not smoke. No history of alcohol or drug abuse. REVIEW OF SYSTEMS: Fourteen-point review of systems was reviewed in detail. No cardiac symptomatology is elicited. PHYSICAL EXAMINATION: VITAL SIGNS: Stable. NECK: Negative JVD. LUNGS: Without rales. HEART: Reveals S1, S2. EXTREMITIES: Both lower extremities reveal evidence of ischemia. EKG shows a small Q in III consistent with his old inferior wall ME. Laboratories are noted. IMPRESSION: 1. Stable angina. 2. Coronary artery disease. 3. History of percutaneous transluminal coronary angioplasty and stent (likely the right coronary artery), several years ago [facility]. 4. Diabetes mellitus. 5. Hypertension. 6. Severe peripheral vascular disease. 7. Ischemic lower extremities. PLAN: Given these findings, there are no active cardiac issues at this time. The patient is at reasonable risk to undergo his planned amputation of the lower extremity. After his recovery from the surgery, we will look at evaluating the status of his coronary disease, which at this time shows no acute issues. Anderson Goldstein MD
[2018-03-31] MEDS ORDERED: Insulin Detemir 100 units/ml Vial (Levemir) SC SCH (22:00)
[2018-04-01] MEDS: Morphine 4 mg/ml ISec IVP PRN (05:56)
[2018-04-01] MEDS: Sodium Chloride 0.45% 1,000 ML IV SCH (06:14)
[2018-04-01 06:26] LABS: HEMOGLOBIN 9.6 g/dL (14.0-18.0); MEAN CELL VOLUME 72.7 fl (80.0-105.0); MEAN CORPUSCULAR HEMOGLOBIN 23.2 pg (25.0-35.0); MEAN CORPUSCULAR HGB CONC 31.9 g/dl (31.0-37.0); MEAN PLATELET VOLUME 8.8 fl (7.0-11.0); RBC 4.14 10^6/uL (3.5-6.1); RED CELL DISTRIBUTION WIDTH 19.2 % (11.5-14.5); WHITE BLOOD COUNT 10.9 10^3/ul (4.5-11.0)
--- NOTE | 2018-04-01 07:29 | PN ---
DATE: 03/31/2018 ENDOCRINOLOGY FOLLOWUP NOTE LOCATION: Room 375. SUBJECTIVE: This is a 53-year-old male with recent uncontrolled type 2 insulin requiring diabetes, now being followed closely for metabolic management. He presented here with nonhealing right heel neuropathic ulceration on the background of severe underlying diabetic polyneuropathy and peripheral arterial vasculopathy as noted. His glucose values are fluctuating, but improved and the latest glucose levels today have ranged from 130 to 194 and 236 mg/dL. It was 236 to 319 at bedtime last night. His latest chemistry showed a BUN of 18. Sodium 137, potassium 4.5, chloride 101, CO2 of 26. Glucose 257. Creatinine 1.2. ASSESSMENT: This is a 53-year-old male with uncontrolled and decompensated type 2 insulin-requiring diabetes, presenting here with marked hyperglycemic acceleration related to a subtherapeutic insulin regimen and is now undergoing IV antibiotic management and local debridement for a nonhealing right heel neuropathic ulceration with underlying diabetic vasculopathy as noted. He also has diabetic microvascular complications of retinopathy, polyneuropathy, and nephropathy as noted. Moreover, he has diabetic microvascular complications of coronary artery disease, peripheral arterial disease, and vasculopathy. He has previous coronary stent placement in the past and underwent also in the recent past, a right transmetatarsal amputation of the right foot as noted with underlying severe diabetic micro and macrovascular complications. PLAN OF MANAGEMENT: We will continue the same basal and bolus insulin regimen with a few dose adjustments to optimize metabolic control. We will increase the Levemir to 54 units subcu at bedtime daily to start tonight. We will continue the Humalog given as 20 units subcu at bedtime daily to start tonight. We will obtain serial chemistries and adjust his dose regimen accordingly. We will also obtain serial thyroid studies. We will reinforce diabetic education and dietary instructions at the time of admission. We will follow with you. Nadja Garcia MD
[2018-04-01 07:30] LABS: ALB/GLOB RATIO 0.8 (1.1-1.8); ALBUMIN 3.5 g/dL (3.0-4.8); ALT/SGPT 35 U/L (7-56); AST/SGOT 38 U/L (17-59); BLOOD UREA NITROGEN 17 mg/dL (7-21); GFR AFRICAN-AMERICAN > 60; GFR NON-AFRICAN AMERICAN > 60
[2018-04-01] MEDS ORDERED: Morphine 4 mg/ml ISec IVP PRN (08:49)
[2018-04-01] MEDS: Insulin Lispro 1 UNITS/0.01 ML SC SCH ×2 (08:57→17:11)
[2018-04-01] MEDS: Insulin Lispro (humaLOG) LOW Coverage SC SCH ×3 (09:09→21:14)
[2018-04-01] MEDS: Meropenem IV 1 gm in NS 50 ML IVPB SCH ×2 (09:12→21:42)
[2018-04-01] MEDS ORDERED: Propofol 10 mg/ml Inj (20 ML) ONE (11:18)
[2018-04-01] MEDS ORDERED: Midazolam 2 MG/2 ML VIAL ONE (11:19)
[2018-04-01] MEDS ORDERED: Rocuronium 10 mg/ml (5 ml) ONE (11:22)
[2018-04-01] MEDS ORDERED: Bupivacaine 0.25% Inj(30mL) ONE (12:15)
--- NOTE | 2018-04-01 13:25 | PN ---
DATE: 04/01/2018 SUBJECTIVE: He is resting comfortably in bed. I believe he is going for a procedure with Dr. Schumacher, the surgeon. He is currently on vancomycin and Merrem and had a dose of Amikacin. He has sepsis to the right foot, purulent skin infection. He failed outpatient treatment of 6 weeks of antibiotics for osteomyelitis and multidrug-resistant Pseudomonas status post TMA, chronic nonhealing wounds in the right foot, diabetes, hypertension, morbidly obese, peripheral vascular disease. Anyway, the plan is for a procedure today. PHYSICAL EXAMINATION: VITAL SIGNS: He has a 98.5 temperature, 75 pulse, 182/82 blood pressure, 19 respiratory rate, 90% O2 sat on room air. HEENT: His head is atraumatic, normocephalic. HEART: Regular rate. LUNGS: Clear to auscultation. ABDOMEN: Soft, obese. EXTREMITIES: The right foot bandaged up. MEDICATIONS: He is on insulin, Levemir, Lipitor, Lopressor, Merrem IV, Microzide, morphine, Neurontin, Pepcid, IV fluids, Toradol and Zestril. LABORATORY DATA: He has a 10.9 white count, 9.6 hemoglobin, 30.1 hematocrit with a 393 platelets. He has 139 sodium, potassium 4.3, BUN 17, creatinine 1.2, GFR is greater than 60, sugar is 206, being seen by the golf technician. Calcium is 9, total bilirubin is 0.2, AST is 38, ALT is 35, alkaline phosphatase 90. Urine is negative. Being seen by Infectious Disease, Cardiology, Endocrinology and will be going for procedure today and possible amputation. We will check his labs tomorrow and increase his pain medications. Continue with aggressive treatment and care on [place]. Ronaldo Gonzalez DO
[2018-04-01] MEDS ORDERED: Neostigmine Methylsulfate 3mg/3ml Syringe IV ONE (13:29)
[2018-04-01] MEDS ORDERED: Glycopyrrolate 0.2 mg/ml (2ml vial) ONE (13:30)
[2018-04-01] MEDS ORDERED: HYDROmorphone 0.5 mg/0.5 ml ISec IVP PRN ×2 (13:48→14:17)
[2018-04-01] MEDS ORDERED: Lidocaine 2 GM Vial 2 GM/50 ML VIAL IV ONE (13:48)
[2018-04-01] MEDS ORDERED: Lactated Ringer's 1,000 ML IV SCH (14:00)
--- NOTE | 2018-04-01 14:17 | PCM.SURG1 ---
Surgeon's Initial Post Op Note - Surgeon's Notes Surgeon: Dr. Schumacher [employer] Faculty Member: Max PGY2, Margaret PGY1 Type of Anesthesia: General Endo, Local Anesthesia Administered By: Dr. Preston Oneill Pre-Operative Diagnosis: Chronic right heel wound. Osteomyelitis. Diabetic Arteriopathy Operative Findings: See operative report Post-Operative Diagnosis: same Operation Performed: Right Below Knee Amputation Specimen/Specimens Removed: Right Below Knee Stump Estimated Blood Loss: EBL {In ML}: 40 Blood Products Given: N/A Post-Op Condition: Good Date of Surgery/Procedure: 04/01/18 Time of Surgery/Procedure: 14:18
[2018-04-01] MEDS ORDERED: HYDROmorphone 0.5 mg/0.5 ml ISec IVP ONE ×3 (14:37→15:10)
[2018-04-01] MEDS ORDERED: HYDROmorphone 0.5 mg/0.5 ml ISec ONE ×3 (14:37→15:10)
[2018-04-01] MEDS: Oxycodone/Acetaminophen 10/325 mg Tab PO PRN (18:53)
[2018-04-01] MEDS: HYDROmorphone 0.5 mg/0.5 ml ISec IVP PRN (21:09)
[2018-04-01] MEDS: Insulin Detemir 100 units/ml Vial (Levemir) SC SCH (21:43)
[2018-04-02] MEDS: HYDROmorphone 0.5 mg/0.5 ml ISec IVP PRN ×6 (00:51→22:57)
--- NOTE | 2018-04-02 01:47 | OP ---
PROCEDURE DATE: 03/02/2018 PREOPERATIVE DIAGNOSIS: Right foot gangrene. POSTOPERATIVE DIAGNOSIS: Right foot gangrene. PROCEDURE: Right below knee amputation. SURGEON: Shawanda Schumacher MD. FIELD INVESTIGATOR: Dr. Norah Santana. TYPE OF ANESTHESIA: General. DESCRIPTION OF PROCEDURE: The patient was brought to the OR and placed supine on the OR table. After adequate general anesthesia had been accomplished, the entire right leg was prepped with ChloraPrep and draped out as a sterile field. Flaps were marked out 15 cm from the tibial plateau distally and with a 12 cm posterior flap for closure. The incision was made and extended down to the subcutaneous tissue and fascia. A muscle was divided in the anterior and lateral compartment as well as medially. The tibia is dissected out. The periosteum was scored and elevated to 1.5 inches cephalad to the skin incision. The tibia was transected at this level with the thigh cuff inflated to twice the systolic pressure. The fibula was also transected. The amputation was completed by using a filet knife to cut the posterior flap. The specimen was handed off. The wound was inspected for bleeding. The peroneal nerve was dissected out and stripped back to above the level of the bone transection and ligated with 3-0 Vicryl. The peroneal artery and vein were ligated with 2-0 silk. The tourniquet was then deflated. All residual bleeding was treated with electrocoagulation or ligation. Wound was irrigated. The flap was closed in 2 layers using 2-0 Monocryl interrupted suture for the fascia and staple and nylon for skin. Prior to completion of the closure of the fascia and the skin, On-Q catheter for continuous infusion of Marcaine was inserted, one subfascially and the other one subcutaneously. The skin closure was completed. The catheter was hooked up to a pump. Sterile dressing was applied to the stump as well as the knee immobilizer. The patient tolerated the procedure well, was awakened from surgery with no complications and transferred to recovery room in stable condition. Shawanda Schumacher MD [facility]ITAL[facility]
[2018-04-02] MEDS: Oxycodone/Acetaminophen 10/325 mg Tab PO PRN ×5 (02:49→21:00)
--- NOTE | 2018-04-02 03:11 | PN ---
DATE: 04/01/2018 SUBJECTIVE: The patient is in bed, in no acute distress, nontoxic. No fevers and chills. The patient was seen earlier this morning in room 375, bed 2. PHYSICAL EXAMINATION: VITAL SIGNS: Temperature is 98, blood pressure is 180/112, respiratory rate of 22, heart rate of 79. HEENT: Unremarkable. NECK: Supple. LUNGS: Have decreased breath sounds. HEART: Normal S1 and S2. ABDOMEN: Soft, nontender. No rebound, no guarding, no masses. LABORATORY EXAMINATION: Reveals the patient's white count down to 10,000, hemoglobin of 9, platelets of 392. BUN of 17, creatinine of 1.2. Urinalysis is noted. Microbiology reveals the foot has gram-negative beverly and gram-positive cocci. Blood cultures are negative. Review of orders reveals the patient to be on meropenem. The patient was also given a dose of amikacin. ASSESSMENT AND PLAN: A 53-year-old male, with diabetes, hypertension, morbid obesity, peripheral vascular disease, history of right foot transmetatarsal amputation, history of left foot first and second toe amputation and who is with sepsis with purulent foot with gram-negative beverly and gram positive cocci is just been treated with six weeks of antibiotics for right foot osteomyelitis with multidrug-resistant pseudomonas and status post transmetatarsal amputation and long history of chronic nonhealing wound of the right foot with diabetic, hypertensive and patient was brought to the OR today for a below knee amputation. We will follow closely with you and check on the identification of gram-negative beverly and gram-positive cocci. Onesimo Moore MD
[2018-04-02] MEDS: Sodium Chloride 0.45% 1,000 ML IV SCH (05:29)
[2018-04-02 06:52] LABS: HEMOGLOBIN 8.9 g/dL (14.0-18.0); MEAN CELL VOLUME 73.8 fl (80.0-105.0); MEAN CORPUSCULAR HEMOGLOBIN 22.8 pg (25.0-35.0); MEAN CORPUSCULAR HGB CONC 30.9 g/dl (31.0-37.0); MEAN PLATELET VOLUME 9.2 fl (7.0-11.0); RBC 3.9 10^6/uL (3.5-6.1); RED CELL DISTRIBUTION WIDTH 19.4 % (11.5-14.5); WHITE BLOOD COUNT 12.6 10^3/ul (4.5-11.0)
[2018-04-02 07:21] LABS: ALB/GLOB RATIO 0.8 (1.1-1.8); ALBUMIN 3.3 g/dL (3.0-4.8); ALT/SGPT 34 U/L (7-56); AST/SGOT 37 U/L (17-59); BLOOD UREA NITROGEN 16 mg/dL (7-21); CALCIUM 8.7 mg/dL (8.4-10.5); GFR AFRICAN-AMERICAN > 60; GFR NON-AFRICAN AMERICAN 53
--- NOTE | 2018-04-02 07:44 | PN ---
DATE: 04/01/2018 ENDOCRINOLOGY FOLLOWUP NOTE LOCATION: In room 375. SUBJECTIVE: This is a 53-year-old male with recent uncontrolled type 2 insulin-requiring diabetes, presenting here with severe peripheral arterial vasculopathy and nonhealing right heel ulceration and is being followed closely now for metabolic management. He is receiving IV antibiotic management and local debridement as noted thereof. His glycemic levels are fluctuating and the glucose values today have ranged from 206 to 258 mg/dL. It was 242 at bedtime last night. The latest chemistry showed a BUN of 17. Sodium 139, potassium 4.3, chloride 102, CO2 of 27. Glucose 208. Creatinine 1.2. ASSESSMENT: This is a 53-year-old male with uncontrolled and decompensated type 2 insulin-requiring diabetes, presenting here with a nonhealing right heel neuropathic ulceration with underlying severe peripheral arterial disease and vasculopathy with the previous transmetatarsal amputation in the right foot and several amputations in the left foot as noted. He also has diabetic microvascular complications of retinopathy and severe polyneuropathy with early diabetic nephropathy. Moreover, he has diabetic microvascular complications of coronary artery disease with previous coronary stent placements and severe peripheral arterial disease and vasculopathy. PLAN OF MANAGEMENT: We will modify once again his basal and bolus insulin regimen which is really more physiological at this time to help optimize metabolic control as noted. We will increase the Humalog to 24 units subcu t.i.d. before meals, to start at dinner time today as ordered. We will also increase the basal insulin with Levemir to be given as 60 units subcu at bedtime daily to start tonight. We will continue the modify low-dose correction scale using Humalog insulin to obviate hypoglycemia and detailed orders have been given. We will obtain serial chemistries and supplement accordingly needed. We will follow up. Nadja Garcia MD
[2018-04-02] MEDS: Insulin Lispro 1 UNITS/0.01 ML SC SCH ×3 (07:54→17:11)
[2018-04-02] MEDS: Insulin Lispro (humaLOG) LOW Coverage SC SCH ×4 (08:17→21:23)
--- NOTE | 2018-04-02 08:37 | CP.PCM.PN ---
Subjective - Date & Time of Evaluation Date of Evaluation: 04/02/18 Time of Evaluation: 07:00 - Subjective Subjective: Patient seen and examined at bedside this AM. Patient had pain overnight that was adequately managed after adjusting his pain medication doses. Denies fevers or chills, urinating well, and eager to work with physical therapy today Objective - Vital Signs/Intake and Output Vital Signs (last 24 hours): Temp Pulse Resp BP Pulse Ox 97.5 F L 81 20 188/112 H 98 04/01/18 18:00 04/01/18 18:00 04/01/18 18:00 04/01/18 18:00 04/01/18 18:00 Intake and Output: 04/02/18 04/02/18 06:59 18:59 Intake Total 600 Output Total 900 Balance -300 - Medications Medications: Current Medications Atorvastatin Calcium (Lipitor) 20 mg PO DAILY [facility] [place] Last Admin: 04/01/18 09:10 Dose: 20 mg Docusate Sodium (Colace) 100 mg PO BID [facility] Last Admin: 04/01/18 21:42 Dose: 100 mg Enoxaparin Sodium (Lovenox) 40 mg SC DAILY [facility] PRN Reason: Protocol Famotidine (Pepcid) 20 mg PO BID [facility] Last Admin: 04/01/18 17:12 Dose: 20 mg Gabapentin (Neurontin) 300 mg PO DAILY [facility] [place] PRN Reason: Protocol Last Admin: 04/01/18 09:19 Dose: Not Given Hydrochlorothiazide (Microzide) 12.5 mg PO DAILY [facility] [place] Last Admin: 04/01/18 09:12 Dose: 12.5 mg Hydromorphone HCl (Dilaudid) 1 mg IVP Q4H PRN PRN Reason: Pain, severe (8-10) Last Admin: 04/02/18 05:25 Dose: 1 mg Meropenem (Merrem Iv 1 Gm Premix) 50 mls @ 100 mls/hr IVPB Q12 [facility] [place] PRN Reason: Protocol Last Admin: 04/01/18 21:42 Dose: 100 mls/hr Sodium Chloride (Sodium Chloride 0.45%) 1,000 mls @ 100 mls/hr IV .Q10H [facility] [place] Last Admin: 04/02/18 05:29 Dose: 100 mls/hr Insulin Detemir (Levemir) 60 unit SC [facility] Last Admin: 04/01/18 21:43 Dose: 60 unit Insulin Human Lispro (Humalog Low) 0 units SC ACHS [facility] [place] PRN Reason: Protocol Last Admin: 04/02/18 08:17 Dose: Not Given Insulin Human Lispro (Humalog) 24 units SC AC [facility] Last Admin: 04/01/18 17:11 Dose: 24 units Ketorolac Tromethamine (Toradol) 30 mg IVP Q6H PRN PRN Reason: Pain, moderate (4-7) Last Admin: 03/30/18 13:56 Dose: 30 mg Lisinopril (Zestril) 20 mg PO DAILY [facility] Last Admin: 04/01/18 09:15 Dose: 20 mg Metoprolol Tartrate (Lopressor) 25 mg PO DAILY [facility] Last Admin: 04/01/18 09:10 Dose: 25 mg Ondansetron HCl (Zofran Inj) 4 mg IVP ONCE PRN PRN Reason: Nausea/Vomiting Oxycodone/Acetaminophen (Percocet 10/325 Mg Tab) 1 tab PO Q4H PRN PRN Reason: Pain, moderate (4-7) Last Admin: 04/02/18 02:49 Dose: 1 tab - Labs Labs: 04/02/18 06:00 04/02/18 06:00 PT 14.8 SECONDS (9.4-12.5) H 03/30/18 09:45 INR 1.28 (0.93-1.08) H 03/30/18 09:45 APTT 30.4 Seconds (25.1-36.5) 03/30/18 09:45 - Constitutional Appears: Well, Non-toxic, No Acute Distress - Head Exam Head Exam: ATRAUMATIC, NORMOCEPHALIC - Eye Exam Eye Exam: Normal appearance. absent: Conjunctival injection, Scleral icterus - ENT Exam ENT Exam: Mucous Membranes Moist, Normal Oropharynx - Respiratory Exam Respiratory Exam: NORMAL BREATHING PATTERN. absent: Accessory Muscle Use, Respiratory Distress - Extremities Exam Additional comments: right AKA site with knee immobilizer in place, no active drainage or bleeding, no surrounding swelling. - Neurological Exam Neurological Exam: Alert, Awake, Oriented x3 - Psychiatric Exam Psychiatric exam: Normal Affect, Normal Mood - Skin Skin Exam: Dry, Intact, Normal Color, Warm Assessment and Plan - Assessment and Plan (Free Text) Assessment: 53M POD#1 s/p BKA of the right leg Plan: Continue to monitor wound site--do not remove dressing until POD#5 unless patient spikes a high fever or it gets soiled Continue to monitor CBC Continue antibiotics per ID Physical therapy and out of bed every day Glucose control to promote healing Patient may be restarted on plavix from a surgical standpoint if medical team thinks it's warranted DVT ppx daily Minimize narcotic use as possible to prevent addiction and promote smooth transition to outpatient pain management Discussed with Dr. Endy Santana, PGY2
[2018-04-02] MEDS: Enoxaparin 40 mg Syringe SC SCH (10:18)
--- NOTE | 2018-04-02 11:28 | PN ---
DATE: 04/02/2018 SUBJECTIVE: The patient is in bed, in no acute distress, nontoxic. PHYSICAL EXAMINATION VITAL SIGNS: Temperature is 97, blood pressure is 180/112, respiratory rate of 20, heart rate of 81. HEENT: Unremarkable. NECK: Supple. LUNGS: Have decreased breath sounds. HEART: Normal S1 and S2. ABDOMEN: Soft, nontender. LABORATORY DATA: Reveals a white count of 12,600, hemoglobin of 8.9, platelets of 380. Chemistries are BUN of 16, creatinine of 1.4. The foot culture is a gram-negative beverly, gram-positive cocci. The blood cultures are negative. Review of orders reveals the patient to be on meropenem and Dr. Norah Santana' progress note is reviewed. ASSESSMENT AND PLAN: This is a 53-year-old male who was seen earlier today in room 575, bed 2, who is awake and alert, with a history of diabetes, hypertension, morbid obesity with peripheral vascular disease, history of right foot transmetatarsal amputation, history of left foot second toe amputation, who was admitted with sepsis with a purulent foot with a gram-negative beverly and gram-positive cocci, was treated with 6 weeks of antibiotic with multidrug resistant Pseudomonas and history of a wound healing and hypertensive. The patient was status post right [id number] amputation yesterday, today is postop day #1, currently on meropenem, waiting for the identification of gram-negative beverly and OR cultures and pathology and we will follow with you. Onesimo Moore MD
--- NOTE | 2018-04-02 13:36 | PN ---
DATE: 04/02/2018 SUBJECTIVE: He is status post right below-knee amputation yesterday, sitting up in bed already. He is eating. He is on Colace, Dilaudid, insulin, Levemir, Lipitor, Lopressor, Lovenox, Merrem IV, Microzide, Neurontin, Pepcid, Percocet, IV fluids, Toradol, Zestril and Zofran. He is in good spirits. He is handling the pain well. PHYSICAL EXAMINATION: VITAL SIGNS: His blood pressure is tyson high and that is helping with his blood pressure, is 188/112, 97.5 temperature, 81 pulse, 20 respiratory rate, 98% O2 sat on room air. HEENT Head is atraumatic, normocephalic. HEART: Regular rate. LUNGS: Clear to auscultation. ABDOMEN: Soft, obese. EXTREMITIES: He has a right below-knee amputation, which is bandaged. He wants to do very aggressive physical therapy. I think he would be a good candidate for, the physical therapy says. LABORATORY DATA: He has a 12.6 white count, 8.9 hemoglobin, 28.8 hematocrit with 380 platelets. He has 139 sodium, potassium 4.6, BUN 16, creatinine 1.4, GFR is 63, sugar is 146, calcium is 8.7, total bili is 0.3, AST is 37, ALT is 34, alk phos 75, total protein 7.6. Urine is clean. ASSESSMENT AND PLAN: He is being seen by Infectious Disease, Endocrinology and Surgery. We will continue aggressive treatment and care and possibly get him to acute rehab versus subacute. Ronaldo Gonzalez DO
--- NOTE | 2018-04-02 15:01 | PN ---
DATE: 04/02/2018 ENDOCRINOLOGY FOLLOWUP NOTE LOCATION: Room 375. SUBJECTIVE: This is a 53-year-old male with recent uncontrolled type 2 insulin-requiring diabetes, now being followed closely for metabolic management. He is also undergoing IV antibiotic management and local debridement for underlying neuropathic foot ulcerations with severe peripheral arterial vasculopathy as noted. His glucose levels have improved overnight and have ranged from 81-146 and 206 mg/dL. His latest chemistries showed a BUN of 16, sodium 139, potassium 4.6, chloride 100, CO2 of 29, glucose 153, and creatinine 1.4. So, at this time, we will continue the present medical management with the same basal and bolus insulin drug combination as given and we will continue the Humalog given as 24 units subcu t.i.d. before meals as ordered. We will continue also the Levemir given as 60 units subcu at bedtime daily as given. We will titrate incrementally as indicated to optimize metabolic control. We will follow and advise accordingly. Nadja Garcia MD
[2018-04-02] MEDS ORDERED: Bupivacaine 0.25% Inj(30mL) ONE (15:27)
[2018-04-02] MEDS: Insulin Detemir 100 units/ml Vial (Levemir) SC SCH (21:23)
[2018-04-03] MEDS: Oxycodone/Acetaminophen 10/325 mg Tab PO PRN ×5 (00:51→22:01)
[2018-04-03] MEDS: HYDROmorphone 0.5 mg/0.5 ml ISec IVP PRN ×4 (02:56→18:12)
[2018-04-03 06:55] LABS: ALB/GLOB RATIO 0.8 (1.1-1.8); ALBUMIN 3.4 g/dL (3.0-4.8); ALT/SGPT 30 U/L (7-56); AST/SGOT 42 U/L (17-59); BLOOD UREA NITROGEN 15 mg/dL (7-21); CALCIUM 8.6 mg/dL (8.4-10.5); GFR AFRICAN-AMERICAN > 60; GFR NON-AFRICAN AMERICAN 58
[2018-04-03 06:56] LABS: HEMOGLOBIN 9.2 g/dL (14.0-18.0); MEAN CORPUSCULAR HEMOGLOBIN 23.4 pg (25.0-35.0); MEAN CORPUSCULAR HGB CONC 31.6 g/dl (31.0-37.0); MEAN PLATELET VOLUME 9.4 fl (7.0-11.0); RBC 3.93 10^6/uL (3.5-6.1); RED CELL DISTRIBUTION WIDTH 19.8 % (11.5-14.5); WHITE BLOOD COUNT 15.8 10^3/ul (4.5-11.0)
[2018-04-03] MEDS: Insulin Lispro 1 UNITS/0.01 ML SC SCH ×3 (08:35→18:14)
[2018-04-03] MEDS: Insulin Lispro (humaLOG) LOW Coverage SC SCH ×4 (08:36→22:09)
[2018-04-03 08:39] VITALS: RESP 20
[2018-04-03] MEDS: Enoxaparin 40 mg Syringe SC SCH (09:03)
--- NOTE | 2018-04-03 11:05 | CP.PCM.PN ---
Subjective - Date & Time of Evaluation Date of Evaluation: 04/03/18 Time of Evaluation: 11:02 - Subjective Subjective: Vascular Surgery: Dr. Schumacher Pt seen and examined. Resting comfortably in bed. States he feels well and pain is well controlled at this time. He has no other complaints at this time. Denies F/C. Objective - Vital Signs/Intake and Output Vital Signs (last 24 hours): Temp Pulse Resp BP Pulse Ox 98.1 F 83 20 180/103 H 96 04/03/18 08:38 04/03/18 09:03 04/03/18 08:38 04/03/18 09:03 04/03/18 08:38 Intake and Output: 04/03/18 04/03/18 06:59 18:59 Intake Total 540 Output Total 1000 Balance -460 - Medications Medications: Current Medications Amlodipine Besylate (Norvasc) 5 mg PO DAILY [facility] Last Admin: 04/03/18 09:02 Dose: 5 mg Atorvastatin Calcium (Lipitor) 20 mg PO DAILY [facility] Last Admin: 04/03/18 09:02 Dose: 20 mg Ciprofloxacin (Cipro) 250 mg PO Q12 [facility] PRN Reason: Protocol Stop: 04/07/18 11:35 Last Admin: 04/03/18 09:01 Dose: 250 mg Docusate Sodium (Colace) 100 mg PO BID [facility] Last Admin: 04/03/18 09:02 Dose: 100 mg Enoxaparin Sodium (Lovenox) 40 mg SC DAILY [facility] PRN Reason: Protocol Last Admin: 04/03/18 09:03 Dose: 40 mg Famotidine (Pepcid) 20 mg PO BID [facility] Last Admin: 04/03/18 09:01 Dose: 20 mg Gabapentin (Neurontin) 300 mg PO DAILY [facility] PRN Reason: Protocol Last Admin: 04/03/18 09:03 Dose: 300 mg Hydrochlorothiazide (Microzide) 12.5 mg PO DAILY [facility] Last Admin: 04/03/18 09:02 Dose: 12.5 mg Hydromorphone HCl (Dilaudid) 0.5 mg IVP Q6H PRN PRN Reason: Pain, severe (8-10) Insulin Detemir (Levemir) 60 unit SC HS [facility] Last Admin: 04/02/18 21:23 Dose: Not Given Insulin Human Lispro (Humalog Low) 0 units SC ACHS [facility] PRN Reason: Protocol Last Admin: 04/03/18 08:36 Dose: Not Given Insulin Human Lispro (Humalog) 14 units SC AC [facility] Last Admin: 04/03/18 08:35 Dose: 14 units Ketorolac Tromethamine (Toradol) 30 mg IVP Q6H PRN PRN Reason: Pain, moderate (4-7) Last Admin: 03/30/18 13:56 Dose: 30 mg Linezolid (Zyvox) 600 mg PO BID [facility] PRN Reason: Protocol Stop: 04/07/18 18:01 Last Admin: 04/03/18 09:03 Dose: 600 mg Lisinopril (Zestril) 20 mg PO DAILY [facility] Last Admin: 04/03/18 09:03 Dose: 20 mg Metoprolol Tartrate (Lopressor) 25 mg PO DAILY [facility] Last Admin: 04/03/18 09:02 Dose: 25 mg Ondansetron HCl (Zofran Inj) 4 mg IVP ONCE PRN PRN Reason: Nausea/Vomiting Oxycodone/Acetaminophen (Percocet 10/325 Mg Tab) 1 tab PO Q4H PRN PRN Reason: Pain, moderate (4-7) Last Admin: 04/03/18 08:34 Dose: 1 tab - Labs Labs: 04/03/18 05:30 04/03/18 05:30 PT 14.8 SECONDS (9.4-12.5) H 03/30/18 09:45 INR 1.28 (0.93-1.08) H 03/30/18 09:45 APTT 30.4 Seconds (25.1-36.5) 03/30/18 09:45 - Constitutional Appears: Well, No Acute Distress - Head Exam Head Exam: ATRAUMATIC, NORMOCEPHALIC - Eye Exam Eye Exam: Normal appearance - ENT Exam ENT Exam: Mucous Membranes Moist - Respiratory Exam Respiratory Exam: NORMAL BREATHING PATTERN - Cardiovascular Exam Cardiovascular Exam: RRR - GI/Abdominal Exam GI & Abdominal Exam: Soft. absent: Tenderness - Extremities Exam Additional comments: R BKA stump with knee immobilizer in place; dressing C/D/I - Neurological Exam Neurological Exam: Alert, Awake, Oriented x3 - Skin Skin Exam: Dry, Warm Assessment and Plan - Assessment and Plan (Free Text) Assessment: 53M with non-healing R foot wound s/p BKA: POD#2 Plan: - H/H stable - WBC slightly elevated this morning but no recorded fevers; pt is on ABX and ID is on board. Will cont to monitor - Keep dressing/knee immobilizer in place - Encourage PT - d/w Dr. Endy Huang, PGY-3
--- NOTE | 2018-04-03 15:13 | PN ---
DATE: 04/03/2018 SUBJECTIVE: The patient is in bed, in no acute distress, nontoxic. PHYSICAL EXAMINATION: VITAL SIGNS: Temperature is 98, blood pressure is 180/100, respiratory rate of 20, heart rate of 83. HEENT: Examination of HEENT is unremarkable. NECK: Supple. LUNGS: Have decreased breath sounds. HEART: Normal S1 and S2. LABORATORY DATA: Laboratory examination reveals the patient's white count of 15,800, hemoglobin of 9. BUN of 15, creatinine of 1.3. Urinalysis is noted. Microbiology reveals Pseudomonas and MRSA from the foot culture. The blood cultures are negative. Review of orders reveals the patient to be on p.o. Cipro and p.o. Zyvox. note is reviewed and appreciated. ASSESSMENT AND PLAN: This is a 53-year-old male who was seen earlier this morning in room 375, bed 3. He is awake and alert. Diabetes, hypertension, morbid obesity with BMI of greater than 40 and peripheral vascular disease, history of right foot transmetatarsal amputation, history of left foot second toe amputation, admitted with sepsis with purulent foot infection with methicillin-resistant Staphylococcus aureus and pseudomonas, treated with 6 weeks of antibiotics, now status post [id number] amputation postoperatively, now with leukocytosis, postop day #2. Mild leukocytosis and the patient is not clinically ill. We will repeat pancultures with sputum, urine and urinalysis and chest x-ray and procalcitonin. Follow a CBC in the a.m. We will make further recommendations. Onesimo Moore MD
--- NOTE | 2018-04-03 15:22 | PN ---
DATE: 04/03/2018 SUBJECTIVE: I saw him sitting in bed. He is resting comfortably. He is eating well. He is in good spirits. No complaints. Mild pain is improving status post right BKA. PHYSICAL EXAMINATION: VITAL SIGNS: He has a 98.1 temp, 83 pulse, 180/103 blood pressure. I increased his Norvasc from 5 to 10 mg. He has a 20 respiratory rate, 96% O2 sat on room air. HEENT: His head is atraumatic, normocephalic. HEART: Regular rate. LUNGS: Decreased breath sounds, but clear. ABDOMEN: Soft, obese, nontender. Positive bowel sounds. EXTREMITIES: He has got a right BKA. Left leg is okay. MEDICATIONS: He is currently on Cipro, Colace, Dilaudid, Humalog, Levemir I increased to 65 units, Lipitor, Lopressor, Lovenox, Microzide, Neurontin, Norvasc increased from 5 to 10, Pepcid, Percocet, Toradol, Zestril, Zofran and Zyvox. LABORATORY DATA: He has a 15.8 white count. He is on IV antibiotics. Hemoglobin is 9.2, hematocrit 29.1, platelets of 389. He has a 139 sodium, potassium 4.7, BUN 15, creatinine 1.3, GFR is 58. Sugar is 194, 230 and 116. I increased his Levemir to 65, calcium is 8.6, total bili is 0.2, AST is 42, ALT is 30, alk phos 81, total protein 7.9. ASSESSMENT AND PLAN: We will continue with aggressive treatment and care. He is being seen by airline captain, organ fixer, infectious disease. Continue with aggressive treatment and care on Franklin Campbell. Ronaldo Gonzalez DO
--- NOTE | 2018-04-03 15:58 | RAD ---
PROCEDURE: CHEST RADIOGRAPH, 1 VIEW HISTORY: inc wbc COMPARISON: 03/30/2018 FINDINGS: LUNGS: Clear. PLEURA: No pneumothorax or pleural fluid seen. CARDIOVASCULAR: Normal. OSSEOUS STRUCTURES: No significant abnormalities. VISUALIZED UPPER ABDOMEN: Normal. OTHER FINDINGS: None. IMPRESSION: No active disease.
[2018-04-03] MEDS: Insulin Detemir 100 units/ml Vial (Levemir) SC SCH (22:25)
[2018-04-04] MEDS: HYDROmorphone 0.5 mg/0.5 ml ISec IVP PRN ×2 (00:17→06:10)
[2018-04-04] MEDS: Oxycodone/Acetaminophen 10/325 mg Tab PO PRN ×3 (02:00→19:59)
[2018-04-04 04:52] LABS: URINE BILIRUBIN NEGATIVE (NEGATIVE); URINE BLOOD MODERATE (NEGATIVE); URINE GLUCOSE (UA) 250 mg/dL (NEGATIVE); URINE LEUKOCYTE ESTERASE NEGATIVE Leu/uL (NEGATIVE); URINE PROTEIN 100 mg/dL (<30 mg/dL); URINE UROBILINOGEN 0.2 E.U./dL (<1 E.U./dL)
[2018-04-04 04:57] LABS: URINE APPEARANCE CLEAR (CLEAR); URINE COLOR YELLOW (YELLOW)
[2018-04-04 05:43] LABS: URINE BACTERIA SMALL (NEG); URINE EPITHELIAL CELLS 0 - 2 /hpf (0-5); URINE WBC 0 - 2 /hpf (0-6)
[2018-04-04 07:16] LABS: HEMOGLOBIN 9.2 g/dL (14.0-18.0); MEAN CELL VOLUME 74.2 fl (80.0-105.0); MEAN CORPUSCULAR HEMOGLOBIN 23.3 pg (25.0-35.0); MEAN CORPUSCULAR HGB CONC 31.4 g/dl (31.0-37.0); MEAN PLATELET VOLUME 9.8 fl (7.0-11.0); RBC 3.95 10^6/uL (3.5-6.1); RED CELL DISTRIBUTION WIDTH 19.6 % (11.5-14.5); WHITE BLOOD COUNT 15.8 10^3/ul (4.5-11.0)
[2018-04-04] MEDS: Insulin Lispro (humaLOG) LOW Coverage SC SCH ×4 (07:54→22:38)
[2018-04-04 07:56] LABS: ALB/GLOB RATIO 0.8 (1.1-1.8); ALBUMIN 3.5 g/dL (3.0-4.8); ALT/SGPT 36 U/L (7-56); AST/SGOT 52 U/L (17-59); BLOOD UREA NITROGEN 14 mg/dL (7-21); CALCIUM 8.5 mg/dL (8.4-10.5); GFR AFRICAN-AMERICAN > 60; GFR NON-AFRICAN AMERICAN 58
[2018-04-04] MEDS: Insulin Lispro 1 UNITS/0.01 ML SC SCH ×3 (08:47→17:23)
[2018-04-04] MEDS: Enoxaparin 40 mg Syringe SC SCH (09:33)
--- NOTE | 2018-04-04 10:05 | CP.PCM.PN ---
Subjective - Date & Time of Evaluation Date of Evaluation: 04/04/18 Time of Evaluation: 07:30 - Subjective Subjective: Patient seen and examined at bedside this AM. Patient states that his pain is improved today, denies any fevers, chills or any other symptoms. Has been ambulating and little up to the bathroom and back with the walker. Encouraged continued ambulation. Objective - Vital Signs/Intake and Output Vital Signs (last 24 hours): Temp Pulse Resp BP Pulse Ox 98.1 F 84 20 182/100 H 98 04/04/18 08:29 04/04/18 08:29 04/04/18 08:29 04/04/18 08:29 04/04/18 08:29 Intake and Output: 04/04/18 04/04/18 06:59 18:59 Output Total 1450 Balance -1450 - Medications Medications: Current Medications Amlodipine Besylate (Norvasc) 10 mg PO DAILY [facility] Atorvastatin Calcium (Lipitor) 20 mg PO DAILY [facility] Last Admin: 04/04/18 09:34 Dose: 20 mg Ciprofloxacin (Cipro) 250 mg PO Q12 [facility] PRN Reason: Protocol Stop: 04/07/18 11:35 Last Admin: 04/04/18 09:34 Dose: 250 mg Docusate Sodium (Colace) 100 mg PO BID [facility] Last Admin: 04/04/18 09:33 Dose: 100 mg Enoxaparin Sodium (Lovenox) 40 mg SC DAILY [facility] PRN Reason: Protocol Last Admin: 04/04/18 09:33 Dose: 40 mg Famotidine (Pepcid) 20 mg PO BID [facility] Last Admin: 04/04/18 09:34 Dose: 20 mg Gabapentin (Neurontin) 300 mg PO DAILY [facility] PRN Reason: Protocol Last Admin: 04/04/18 09:33 Dose: 300 mg Hydrochlorothiazide (Hydrodiuril) 25 mg PO DAILY [facility] Insulin Detemir (Levemir) 65 unit SC HS [facility] Last Admin: 04/03/18 22:25 Dose: 65 unit Insulin Human Lispro (Humalog Low) 0 units SC ACHS [facility] PRN Reason: Protocol Last Admin: 04/04/18 07:54 Dose: Not Given Insulin Human Lispro (Humalog) 15 units SC AC [facility] Ketorolac Tromethamine (Toradol) 30 mg IVP Q6H PRN PRN Reason: Pain, moderate (4-7) Last Admin: 03/30/18 13:56 Dose: 30 mg Linezolid (Zyvox) 600 mg PO BID [facility] PRN Reason: Protocol Stop: 04/07/18 18:01 Last Admin: 04/04/18 09:34 Dose: 600 mg Lisinopril (Zestril) 20 mg PO DAILY [facility] Last Admin: 04/03/18 09:03 Dose: 20 mg Metoprolol Tartrate (Lopressor) 25 mg PO DAILY [facility] Last Admin: 04/03/18 09:02 Dose: 25 mg Morphine Sulfate (Morphine) 2 mg IVP Q6H PRN PRN Reason: Pain, severe (8-10) Ondansetron HCl (Zofran Inj) 4 mg IVP ONCE PRN PRN Reason: Nausea/Vomiting Oxycodone/Acetaminophen (Percocet 10/325 Mg Tab) 1 tab PO Q4H PRN PRN Reason: Pain, moderate (4-7) Last Admin: 04/04/18 02:00 Dose: 1 tab - Labs Labs: 04/04/18 06:30 04/04/18 06:30 PT 14.8 SECONDS (9.4-12.5) H 03/30/18 09:45 INR 1.28 (0.93-1.08) H 03/30/18 09:45 APTT 30.4 Seconds (25.1-36.5) 03/30/18 09:45 - Constitutional Appears: Well, Non-toxic, No Acute Distress - Head Exam Head Exam: ATRAUMATIC, NORMOCEPHALIC - Eye Exam Eye Exam: Normal appearance. absent: Conjunctival injection, Scleral icterus - ENT Exam ENT Exam: Mucous Membranes Moist, Normal Oropharynx - Respiratory Exam Respiratory Exam: NORMAL BREATHING PATTERN. absent: Accessory Muscle Use, Respiratory Distress - GI/Abdominal Exam GI & Abdominal Exam: absent: Distended - Back Exam Additional comments: right leg amputation site with dressing intact. Moderate amount of old sero- sanguinous saturation unchanged from yesterday. Upper leg without any erythema or swelling. Left leg no edema or calf tenderness - Neurological Exam Neurological Exam: Alert, Awake, Oriented x3 - Psychiatric Exam Psychiatric exam: Normal Affect, Normal Mood - Skin Skin Exam: Dry, Normal Color, Warm Assessment and Plan - Assessment and Plan (Free Text) Assessment: 53M POD#3 s/p right BKA for chronic foot ulcers and osteomyelitis Plan: Continue daily CBC--WBC persistently elevated at 15.8 but afebrile and HR wnl Continue antibiotics per ID--currently on regimen that aligns with cultures sensitivities PRN pain medication--will change from dilaudid to morphine for breakthrough pain , PO percocet for moderate pain, continue On-Q Will take down dressing tomorrow AM to assess for any sign of infection-- continue to monitor as an inpatient for now as he is high risk for infection OK to restart anticoagulation for CAD per cardiology recs Discussed with Dr. Endy Santana, PGY2
[2018-04-04] MEDS: Morphine 4 mg/ml ISec IVP PRN ×2 (10:48→17:47)
--- NOTE | 2018-04-04 12:14 | PN ---
DATE: 04/04/2018 SUBJECTIVE: The patient is seen in bed, in no acute distress, nontoxic. PHYSICAL EXAMINATION: VITAL SIGNS: Temperature is 98, blood pressure is 150/80, respiratory rate of 20, heart rate of 83. HEENT: Examination of HEENT is unremarkable. NECK: Supple. LUNGS: Have decreased breath sounds. HEART: Normal S1, S2. ABDOMEN: Soft, nontender. LABORATORY DATA: Laboratory examination reveals a white count of 15,800, hemoglobin of 9, platelets of 338. BUN of 14, creatinine of 1.3, procalcitonin 0.15. Urinalysis is noted. Microbiology is noted with Pseudomonas and MRSA from the foot. Dr. Ronaldo Gonzalez's progress note is reviewed from yesterday. The patient had a chest x-ray yesterday, which was clear. Currently, the patient is on p.o. Cipro, p.o. Zyvox. ASSESSMENT AND PLAN: A 53-year-old male who was seen earlier today at 375, bed 2 and who was awake and alert, who has a history of diabetes, hypertension, morbid obesity with a body mass index of 41 and peripheral vascular disease, history of right foot transmetatarsal, history of left foot second toe amputation. Admitted on this admission with #1 is sepsis with purulent foot infection with Pseudomonas and methicillin-resistant Staphylococcus aureus, now status post right [id number] amputation with postop day #3, now has leukocytosis and on Cipro and Zyvox with a negative chest x-ray. We will check on the repeat blood cultures and urine cultures. The patient states that there is discharge on the dressing. I discussed it with , the nursing surgical services director. She states that Dr. Shawanda Schumacher is the surgeon who requested no one is to touch her dressing. Etiology of the leukocytosis is not entirely clear. Pancultures pending and with a negative procalcitonin from yesterday and a negative chest x-ray yesterday. We will examine the wound on Thursday with Dr. Schumacher and the urinalysis from yesterday is also negative. We will check on the repeat blood cultures, urine cultures and sputum culture. We will follow with you and follow up and repeat a CBC in a.m. Onesimo Moore MD [facility] # [id number]
--- NOTE | 2018-04-04 15:02 | PN ---
DATE: 04/04/2018 ENDOCRINOLOGY FOLLOWUP NOTE LOCATION: Room 375. SUBJECTIVE: This is a 53-year-old male with recent uncontrolled type 2 insulin-requiring diabetes, now being followed closely for metabolic management. His is also undergoing IV antibiotic management and local debridement for underlying lower extremity cellulitis with neuropathic ulcerations and is now being followed closely also for metabolic management. His glucose values are fluctuating despite the hefty insulin dose regiment as given. His glucose values today have ranged from 222-240 mg/dL. His latest chemistry showed a BUN of 14, sodium 140, potassium 4.1, chloride 101, CO2 of 21, glucose 276, and creatinine 1.3. ASSESSMENT: This is a 53-year-old male with uncontrolled and decompensated type 2 insulin-requiring diabetes with marked hyperglycemic accelerations that have improved thereof with insulin dose adjustments as given. He also has significant diabetic microvascular complications of retinopathy, polyneuropathy, and nephropathy with diabetic macrovascular complications of coronary artery disease, peripheral arterial disease, and vasculopathy. PLAN OF MANAGEMENT: As discussed with the patient and staff, we will continue the modified dose regimen undertaken today with the primary physician and the Humalog was increased to 15 units subcu t.i.d. before meals as ordered. We will also continue the basal insulin given as Levemir at 65 units subcu at bedtime daily as given. We will continue the low-dose correction scale using Humalog insulin as given. We will obtain serial chemistries and supplement accordingly as needed. We will follow. Nadja Garcia MD
--- NOTE | 2018-04-04 15:19 | PN ---
DATE: 04/04/2018 SUBJECTIVE: I saw Franklin resting in bed. He just had a right BKA. He is comfortable in bed. He is eating. He is feeling well. He is trying physical therapy. He is very motivated. He is in good spirits. He is on amikacin, Cipro, Colace, insulin, Levemir, Lipitor, Lopressor, Lovenox, Microzide, morphine, Neurontin, Norvasc, Pepcid, Percocet, Toradol, Zestril, Zofran and Zyvox. OBJECTIVE: VITAL SIGNS: He has a 98.1 temperature, 84 pulse, 182/100 blood pressure blood pressure again, it was as low as 150/81, I increased his Norvasc; 20 respiratory rate; 90% O2 sat on room air. HEENT: Head is atraumatic, normocephalic. HEART: Regular rate. LUNGS: Decreased breath sounds, but clear. ABDOMEN: Morbidly obese, soft, nontender. Positive bowel sounds. EXTREMITIES: His right BKA all bandaged. DATA: He has a 15.8 white count, it is still persisting high, on antibiotics, he is on three, 9.2 hemoglobin, 29.3 hematocrit with 338 platelets. INR is 1.28. Sodium 140, potassium 4.1, BUN is 40, creatinine 0.3, GFR is 58. Sugar is 276, 222, 214. I will tighten up his blood sugars and blood pressure right now. Calcium is 8.5, total bili is 0.1, AST is 52, ALT is 36, alkaline phosphatase 104, total protein is 8. His urine is negative right now. He is being seen by Infectious Disease, Endocrinology, Podiatry. Chest x-ray, there is no active disease. Not sure why he has this white count. We will adjust his medications. Check his labs tomorrow and hopefully, he can go to acute rehab tomorrow. This is a patient who had a right BKA. Ronaldo Gonzalez DO [facility]
[2018-04-04] MEDS: Insulin Detemir 100 units/ml Vial (Levemir) SC SCH (22:37)
[2018-04-05] MEDS: Morphine 4 mg/ml ISec IVP PRN (00:02)
[2018-04-05] MEDS: Oxycodone/Acetaminophen 10/325 mg Tab PO PRN ×2 (03:50→08:49)
[2018-04-05 07:37] LABS: HEMOGLOBIN 8.6 g/dL (14.0-18.0); MEAN CELL VOLUME 73.8 fl (80.0-105.0); MEAN CORPUSCULAR HEMOGLOBIN 22.8 pg (25.0-35.0); MEAN CORPUSCULAR HGB CONC 30.8 g/dl (31.0-37.0); RBC 3.78 10^6/uL (3.5-6.1); RED CELL DISTRIBUTION WIDTH 19.5 % (11.5-14.5); WHITE BLOOD COUNT 15.5 10^3/ul (4.5-11.0)
[2018-04-05 07:56] LABS: ALB/GLOB RATIO 0.8 (1.1-1.8); ALBUMIN 3.6 g/dL (3.0-4.8); CALCIUM 8.6 mg/dL (8.4-10.5)
[2018-04-05] MEDS: Insulin Lispro (humaLOG) LOW Coverage SC SCH ×3 (08:38→16:55)
[2018-04-05] MEDS: Insulin Lispro 1 UNITS/0.01 ML SC SCH ×3 (08:42→17:49)
--- NOTE | 2018-04-05 08:58 | CP.PCM.PN ---
Subjective - Date & Time of Evaluation Date of Evaluation: 04/05/18 Time of Evaluation: 08:55 - Subjective Subjective: Vascular Surgery: Dr. Schumacher Pt seen and examined. No acute events overnight. Pt states he feels pretty well and has been able to get out of bed and into the wheelchair. His pain is well controlled and he denies any other complaints at this time. Denies fevers, chills. Objective - Vital Signs/Intake and Output Vital Signs (last 24 hours): Temp Pulse Resp BP Pulse Ox 97.1 F L 69 20 162/91 H 98 04/05/18 08:12 04/05/18 08:12 04/05/18 08:12 04/05/18 08:12 04/05/18 08:12 Intake and Output: 04/05/18 04/05/18 06:59 18:59 Output Total 900 650 Balance -900 -650 - Medications Medications: Current Medications Amlodipine Besylate (Norvasc) 10 mg PO DAILY [facility] Atorvastatin Calcium (Lipitor) 20 mg PO DAILY [facility] Last Admin: 04/04/18 09:34 Dose: 20 mg Ciprofloxacin (Cipro) 250 mg PO Q12 [facility] PRN Reason: Protocol Stop: 04/07/18 11:35 Last Admin: 04/04/18 21:11 Dose: 250 mg Docusate Sodium (Colace) 100 mg PO BID [facility] Last Admin: 04/04/18 17:47 Dose: Not Given Enoxaparin Sodium (Lovenox) 40 mg SC DAILY [facility] PRN Reason: Protocol Last Admin: 04/04/18 09:33 Dose: 40 mg Famotidine (Pepcid) 20 mg PO BID [facility] Last Admin: 04/04/18 17:37 Dose: 20 mg Gabapentin (Neurontin) 300 mg PO DAILY [facility] PRN Reason: Protocol Last Admin: 04/04/18 09:33 Dose: 300 mg Hydrochlorothiazide (Hydrodiuril) 25 mg PO DAILY [facility] Last Admin: 04/04/18 10:18 Dose: 25 mg Insulin Detemir (Levemir) 65 unit SC HS [facility] Last Admin: 04/04/18 22:37 Dose: 65 unit Insulin Human Lispro (Humalog Low) 0 units SC ACHS [facility] PRN Reason: Protocol Last Admin: 04/05/18 08:38 Dose: Not Given Insulin Human Lispro (Humalog) 18 units SC AC [facility] Last Admin: 04/05/18 08:42 Dose: 18 units Ketorolac Tromethamine (Toradol) 30 mg IVP Q6H PRN PRN Reason: Pain, moderate (4-7) Last Admin: 04/05/18 03:50 Dose: 30 mg Linezolid (Zyvox) 600 mg PO BID [facility] PRN Reason: Protocol Stop: 04/07/18 18:01 Last Admin: 04/04/18 17:23 Dose: 600 mg Lisinopril (Zestril) 20 mg PO DAILY [facility] Last Admin: 04/03/18 09:03 Dose: 20 mg Metoprolol Tartrate (Lopressor) 25 mg PO DAILY [facility] Last Admin: 04/03/18 09:02 Dose: 25 mg Morphine Sulfate (Morphine) 2 mg IVP Q6H PRN PRN Reason: Pain, severe (8-10) Last Admin: 04/05/18 00:02 Dose: 2 mg Ondansetron HCl (Zofran Inj) 4 mg IVP ONCE PRN PRN Reason: Nausea/Vomiting Oxycodone/Acetaminophen (Percocet 10/325 Mg Tab) 1 tab PO Q4H PRN PRN Reason: Pain, moderate (4-7) Last Admin: 04/05/18 08:49 Dose: 1 tab - Labs Labs: 04/05/18 07:00 04/05/18 07:00 PT 14.8 SECONDS (9.4-12.5) H 03/30/18 09:45 INR 1.28 (0.93-1.08) H 03/30/18 09:45 APTT 30.4 Seconds (25.1-36.5) 03/30/18 09:45 - Constitutional Appears: Well, No Acute Distress - Head Exam Head Exam: ATRAUMATIC, NORMOCEPHALIC - Eye Exam Eye Exam: Normal appearance - ENT Exam ENT Exam: Mucous Membranes Moist - Respiratory Exam Respiratory Exam: NORMAL BREATHING PATTERN - Cardiovascular Exam Cardiovascular Exam: RRR - GI/Abdominal Exam GI & Abdominal Exam: Soft. absent: Tenderness - Extremities Exam Additional comments: R BKA stump clean, dry, intact with fannie and sutures in place - Neurological Exam Neurological Exam: Alert, Awake, Oriented x3 - Skin Skin Exam: Dry, Warm Assessment and Plan - Assessment and Plan (Free Text) Assessment: 53M with R DAISY; POD#4 Plan: - cont ABX per ID recs - pt clear for rehab from surgical standpoint - f/u with Dr. Schumacher in 2 weeks for suture/staple removal - d/w Dr. Endy Huang, PGY-3
[2018-04-05] MEDS: Enoxaparin 40 mg Syringe SC SCH (09:58)
--- NOTE | 2018-04-05 10:04 | PN ---
DATE: 04/03/2018 ENDOCRINOLOGY FOLLOWUP NOTE ` LOCATION: In room 375. SUBJECTIVE: This is a 53-year-old male with recent uncontrolled type 2 insulin-requiring diabetes, undergoing IV antibiotic management for lower extremity neuropathic ulcerations and severe underlying peripheral arterial vasculopathy and is now being followed closely for metabolic management. His glycemic levels are fluctuating, but improved and the overnight glucose levels have ranged from 116-194 mg/dL. His latest chemistries include a BUN of 15, sodium 139, potassium 4.7, chloride 100, CO2 of 27, glucose 230 and creatinine 1.3. So at this time, we will continue the modified basal and bolus insulin regimen as ordered with Humalog given as 14 units subcu t.i.d. before meals as given. We will continue the basal insulin given as Levemir at 60 units subcu at bedtime daily as given. We will titrate incrementally as indicated to optimize metabolic control. We will obtain serial chemistries and supplement accordingly as needed. We will follow and advise accordingly. Nadja Garcia MD
--- NOTE | 2018-04-05 13:07 | PN ---
DATE: 04/05/2018 PROGRESS NOTE POSSIBLE DISCHARGE SUMMARY SUBJECTIVE: He is resting comfortably in bed. He is feeling quite well. He is feeling his breath is felt. He is very happy with the surgery of his legs as he is feeling better. He has got a right BKA, wants to do physical therapy. He is very motivated. He has a Pseudomonas aeruginosa, methicillin-resistant Staphylococcus aureus in the culture of the wound. He is comfortable. He is eating. PHYSICAL EXAMINATION: VITAL SIGNS: He has 97.1 temperature, 69 pulse, 162/91 blood pressure, 20 respiratory rate, 98% O2 sat on room air. HEENT: Head is atraumatic, normocephalic. HEART: Regular rate. LUNGS: Decreased breath sounds, but clear. ABDOMEN: Soft, obese, nontender. No guarding. No rebound. No CVA tenderness. EXTREMITIES: The right BKA is bandaged. Left leg is okay. MEDICATIONS: He is currently on Cipro p.o., Colace, insulin, HydroDIURIL, Levemir, Lipitor, Lopressor, Lovenox, morphine, Neurontin, Norvasc, Pepcid, Percocet, Toradol, Zestril, Zofran and Zyvox p.o. LABORATORY DATA: The problem is his labs, his white count is 15.5, it is 3 days in a row being 15, hemoglobin dropped to 8.6, hematocrit 27.9, platelets 435. Sodium 143, potassium 4.2, BUN 80, creatinine 1.5, GFR is 49, sugar is 210, calcium is 8.6, total bili is 0.2, AST is 59, ALT is 33, alk phos 94, total protein is 8. Urine was clean. Chest x-ray was clean. ASSESSMENT AND PLAN: Being seen by multiple physicians, Podiatry, Infectious Disease, Endocrinology, Cardiology, Surgery. If it is okay with Infectious Disease and Surgery, we will discharge him to subacute rehab; otherwise we will keep him here and await later to find out. Ronaldo Gonzalez DO
--- NOTE | 2018-04-05 14:10 | PN ---
DATE: 04/05/2018 CARDIOLOGY FOLLOWUP SUBJECTIVE: The patient is in a chair, worked out with physical therapy. No shortness of breath. No chest pain. PHYSICAL EXAMINATION: VITAL SIGNS: Blood pressure 154/82, heart rate in the 70s. NECK: Negative JVD. LUNGS: Without rales. HEART: S1, S2. EXTREMITIES: Status post amputation. LABORATORY DATA: Reviewed. The white count is 15.5, hemoglobin is 8.6. Glucose is 216. IMPRESSION: 1. Stable angina. 2. Coronary artery disease. 3. Diabetes mellitus. 4. Peripheral vascular disease. 5. Anemia. 6. Status post amputation. The patient is being transferred to a subacute rehab today. I have discussed with the patient about the need to screen for and evaluate his coronary arteries. We will arrange for an outpatient stress test in 3 to 4 weeks once he is recovered from his amputation. Anderson Goldstein MD
[2018-04-05] MEDS ORDERED: Oxycodone/Acetaminophen 5/325 mg Tab PO PRN (15:43)
[2018-04-05 17:09] VITALS: BP 161/91; PULSE 79; TEMP 98; O2SAT 99
--- NOTE | 2018-04-05 19:44 | CP.PCM.PN ---
Subjective - Date & Time of Evaluation Date of Evaluation: 04/05/18 Time of Evaluation: 15:20 - Subjective Subjective: Comfortable in bed, no fevers, muc improved pain in the right leg stump. No diarrhea. Objective - Vital Signs/Intake and Output Vital Signs (last 24 hours): Temp Pulse Resp BP Pulse Ox 97.1 F L 69 20 162/91 H 98 04/05/18 08:12 04/05/18 08:12 04/05/18 08:12 04/05/18 08:12 04/05/18 08:12 Intake and Output: 04/05/18 04/05/18 06:59 18:59 Output Total 900 650 Balance -900 -650 - Medications Medications: Current Medications Amlodipine Besylate (Norvasc) 10 mg PO DAILY [facility] Atorvastatin Calcium (Lipitor) 20 mg PO DAILY [facility] Last Admin: 04/04/18 09:34 Dose: 20 mg Ciprofloxacin (Cipro) 250 mg PO Q12 [facility] PRN Reason: Protocol Stop: 04/07/18 11:35 Last Admin: 04/04/18 21:11 Dose: 250 mg Docusate Sodium (Colace) 100 mg PO BID [facility] Last Admin: 04/04/18 17:47 Dose: Not Given Enoxaparin Sodium (Lovenox) 40 mg SC DAILY [facility] PRN Reason: Protocol Last Admin: 04/04/18 09:33 Dose: 40 mg Famotidine (Pepcid) 20 mg PO BID [facility] Last Admin: 04/04/18 17:37 Dose: 20 mg Gabapentin (Neurontin) 300 mg PO DAILY [facility] PRN Reason: Protocol Last Admin: 04/04/18 09:33 Dose: 300 mg Hydrochlorothiazide (Hydrodiuril) 25 mg PO DAILY [facility] Last Admin: 04/04/18 10:18 Dose: 25 mg Insulin Detemir (Levemir) 65 unit SC HS [facility] Last Admin: 04/04/18 22:37 Dose: 65 unit Insulin Human Lispro (Humalog Low) 0 units SC ACHS [facility] PRN Reason: Protocol Last Admin: 04/05/18 08:38 Dose: Not Given Insulin Human Lispro (Humalog) 18 units SC AC [facility] Last Admin: 04/05/18 08:42 Dose: 18 units Ketorolac Tromethamine (Toradol) 30 mg IVP Q6H PRN PRN Reason: Pain, moderate (4-7) Last Admin: 04/05/18 03:50 Dose: 30 mg Linezolid (Zyvox) 600 mg PO BID [facility] PRN Reason: Protocol Stop: 04/07/18 18:01 Last Admin: 04/04/18 17:23 Dose: 600 mg Lisinopril (Zestril) 20 mg PO DAILY [facility] Last Admin: 04/03/18 09:03 Dose: 20 mg Metoprolol Tartrate (Lopressor) 25 mg PO DAILY [facility] Last Admin: 04/03/18 09:02 Dose: 25 mg Morphine Sulfate (Morphine) 2 mg IVP Q6H PRN PRN Reason: Pain, severe (8-10) Last Admin: 04/05/18 00:02 Dose: 2 mg Ondansetron HCl (Zofran Inj) 4 mg IVP ONCE PRN PRN Reason: Nausea/Vomiting Oxycodone/Acetaminophen (Percocet 10/325 Mg Tab) 1 tab PO Q4H PRN PRN Reason: Pain, moderate (4-7) Last Admin: 04/05/18 08:49 Dose: 1 tab - Labs Labs: 04/05/18 07:00 04/05/18 07:00 PT 14.8 SECONDS (9.4-12.5) H 03/30/18 09:45 INR 1.28 (0.93-1.08) H 03/30/18 09:45 APTT 30.4 Seconds (25.1-36.5) 03/30/18 09:45 - Constitutional Appears: Chronically Ill - Head Exam Head Exam: NORMAL INSPECTION - ENT Exam ENT Exam: Mucous Membranes Moist - Respiratory Exam Respiratory Exam: Decreased Breath Sounds - Cardiovascular Exam Cardiovascular Exam: +S1, +S2 - GI/Abdominal Exam GI & Abdominal Exam: Soft. absent: Tenderness - Extremities Exam Additional comments: right BKA stump with dressings in place Assessment and Plan - Assessment and Plan (Free Text) Plan: Assessment S/P sepsis due to right foot purulent skin and skin structure infection in this patient who has just been treated with 6 weeks of antibiotics for right foot osteomyelitis with multidrug-resistant Pseudomonas S/P TMA and with long history of chronic non-healing wounds on the right foot - S/P right BKA POD #1 ( prior to BKA the foot grew MRSA and more sensitive Pseudomonas DM HTN morbid obesity peripheral vascular disease history of right foot TMA history of left foot 1st and 2nd toe amputation Plan since BKA has been done, we can d/c antibiotics with follow up with Surgery and PMD monitor leukocytosis, which may be stress reaction after surgery
--- NOTE | 2018-04-05 20:08 | PN ---
DATE: 04/05/2018 ENDOCRINOLOGY FOLLOWUP NOTE LOCATION: Room 375, bed 2. This is a 53-year-old male with recent uncontrolled type 2 insulin-requiring diabetes with persistent hyperglycemic accelerations that are improving accordingly and is now being followed closely for metabolic management. He also has significant history of diabetic retinopathy, polyneuropathy, and early diabetic nephropathy as well. His glycemic levels today are fluctuating, but improved and have ranged from 118 to 216 mg/dL. The latest chemistry showed a BUN of 18. Sodium 146, potassium 4.2, chloride 102, CO2 of 27. Glucose 216. Creatinine 1.5. So at this time, we will modify once again his basal insulin and increase the Levemir to 70 units subcu at bedtime daily to start tonight. We will continue the low-dose correction scale using Humalog insulin as given. Moreover, we will continue the fixed dosing of his Humalog given as 18 units subcu t.i.d. before meals as ordered. We will obtain serial chemistries and supplement accordingly as needed. We will follow with you. Nadja Garcia MD
[2018-04-05] MEDS ORDERED: Insulin Detemir 100 units/ml Vial (Levemir) SC SCH (22:00)
== END 2018-04-05 21:00 | DRG 854 ==
LOC: ED 08:31 → ERH 11:58 → 3RSO 13:37
PROVIDERS: ADMIT Family Medicine; ATTEND Family Medicine
PROC: 0Y6H0Z1 Detachment at Right Lower Leg, High, Open Approach (ICD-10-PCS; principal; 2018-04-01 11:00)
DX: A41.02 Sepsis due to Methicillin resistant Staphylococcus aureus (principal); E10.52 Type 1 diabetes mellitus with diabetic peripheral angiopathy with gangrene; M86.9 Osteomyelitis, unspecified; L03.119 Cellulitis of unspecified part of limb; L97.419 Non-pressure chronic ulcer of right heel and midfoot with unspecified severity; B96.5 Pseudomonas (aeruginosa) (mallei) (pseudomallei) as the cause of diseases classified elsewhere; E10.621 Type 1 diabetes mellitus with foot ulcer; E10.319 Type 1 diabetes mellitus with unspecified diabetic retinopathy without macular edema; E10.42 Type 1 diabetes mellitus with diabetic polyneuropathy; E10.21 Type 1 diabetes mellitus with diabetic nephropathy; E10.65 Type 1 diabetes mellitus with hyperglycemia; E10.69 Type 1 diabetes mellitus with other specified complication; D64.9 Anemia, unspecified; E78.5 Hyperlipidemia, unspecified; I10 Essential (primary) hypertension; I25.2 Old myocardial infarction; I25.118 Atherosclerotic heart disease of native coronary artery with other forms of angina pectoris; E66.01 Morbid (severe) obesity due to excess calories; Z79.02 Long term (current) use of antithrombotics/antiplatelets; Z79.2 Long term (current) use of antibiotics; Z79.4 Long term (current) use of insulin; Z79.82 Long term (current) use of aspirin; Z87.891 Personal history of nicotine dependence; Z89.412 Acquired absence of left great toe; Z89.422 Acquired absence of other left toe(s); Z89.431 Acquired absence of right foot; Z95.5 Presence of coronary angioplasty implant and graft